=== PATIENT | male | born 1980 | race Two or more races ===

== ENCOUNTER 2021-12-23 10:24 | Outpatient (REF) | payer OTHER, SELFPAY ==
--- NOTE | ~2021-12-23 | MR_ITS ---
MRI OF THE BRAIN WITHOUT IV CONTRAST INDICATION: Migraine headache. COMPARISON: None available. TECHNIQUE: Multiplanar multisequence MR imaging of the brain was obtained without IV contrast. FINDINGS: Small left lateral retrocerebellar arachnoid cyst. There is no hydrocephalus, extra-axial surface collection, or herniation. No parenchymal signal abnormality. The major flow voids at the skull base are preserved. There is no acute infarct on diffusion-weighted imaging. There is no intracranial hemorrhage on the gradient recalled echo acquisition. The midline structures are normal. The cerebellar tonsils are normally positioned. The cerebellum and brainstem are normal. The craniocervical junction is normal. Osseous marrow signal intensity is homogenous. The visualized soft tissues are unremarkable. Large retention cysts within the maxillary sinuses bilaterally. MR/MR head/brain wo con IMPRESSION: - No acute intracranial findings. - Small left lateral retrocerebellar arachnoid cyst. - Large retention cysts within the maxillary sinuses bilaterally.
== END 2021-12-23 10:25 | disposition home or self-care (01) ==
LOC: HO.MRI 10:24
PROVIDERS: Visit Provider Psychiatry & Neurology Neurology
DX: G43.909 Migraine, unspecified, not intractable, without status migrainosus (principal)
CPT/HCPCS: 70551

== ENCOUNTER 2024-06-14 11:19 | Emergency (ER) | payer OTHER, SELFPAY ==
[2024-06-14 12:03] VITALS: BP 149/105; PULSE 72; RESP 19; TEMP 36.6; O2SAT 99; BMI 24.0
--- NOTE | 2024-06-14 12:08 | ED.GENADULT ---
HPI - General Adult General Chief complaint: General Medical Stated complaint: medication problem Time Seen by Provider: 06/14/24 12:24 Source: patient, RN notes reviewed and old records reviewed Mode of arrival: ambulatory History of Present Illness ED Provider: Allison Muñoz PA-C HPI narrative: 44-year-old male with a past medical history of migraines on Aimovig 70 mg IM, presenting to the ED requesting Aimovig injection. States follows with Neurology and has been receiving prescription for monthly injections over the past year however his neurologist recently retired. Reports his primary care refused prior authorization for him to continue medication. Reports acute on chronic migraine headache, unchanged from typical, not maximal at onset. Denies vision change or loss, nausea/vomiting, weakness Related Data Allergies Allergy/AdvReac Type Severity Reaction Status Date / Time No Known Allergies Allergy Verified 06/14/24 12:06 Review of Systems Review of Systems: Yes all other systems are reviewed and are negative Constitutional: Constitutional: Reports as per HPI Neurologic: Denies Abnormal speech present [facility] Past Medical History Attestation statement: The following information was validated with the patient. Source: old records reviewed Social History Social History Smoked in Last 30 Days: Yes Substance Use Type: Marijuana Substance Use Type Other:: prescription marijuana Advance Directives: No Do you have a plan to hurt others: No Plan Physical Exam ED Vital Signs: Vital Signs - 24 hr 06/14/24 12:03 06/14/24 14:16 06/14/24 14:18 Temperature 98 F 97.2 F 97.2 F Pulse Rate 72 70 70 Respiratory Rate 19 18 18 Blood Pressure 149/105 H 139/99 H 139/99 H Pulse Oximetry 99 100 100 Oxygen Delivery Method Room Air Room Air BMI result Body Mass Index 24.0 Const General: cooperative, healthy appearing and no acute distress Orientation/consciousness: patient oriented x3 Limitations: no limitations HENMT Head: Yes normal to inspection and Yes atraumatic Ears: hearing grossly normal bilaterally General nose exam: Normal external nose present Face and sinus: Yes normal facial exam Mouth: Normal oral and palatal mucosa present and no drooling Throat: Yes posterior oropharynx normal, Yes uvula midline, No uvula laterally displaced and No uvular edema Eyes General: appearance normal, both eyes and all related structures Pupils: Equal, round and reactive pupils present EOM: EOMs intact bilaterally Neck Neck: Yes normal visual inspection and Yes no meningeal signs Resp Effort & Inspection: normal respiratory effort and no respiratory distress Cardio Rate: regular rate GI Inspection: Yes normal to inspection Palpation (GI): Soft to palpation, nontender, no guarding and not rigid Skin Rashes: no rashes Wounds: no wounds Neuro General: patient oriented x3, gait normal, tone normal, moves all extremities, no meningeal signs, no focal motor deficits and CN's II-XI intact bilaterally Cranial nerves: Yes CN's II-XII intact bilaterally, Yes Equal, round and reactive pupils present and Yes Bilaterally intact EOM present Cognition (Neuro): normal cognition Speech: No Abnormal speech present Gait exam (Neuro): Normal gait present Motor exam (neuro): 5/5 motor strength present throughout Extrem General: Yes normal to inspection Course Course Course Narrative: RME: 44 yold male with pmh of migraines needs AIMovig 70mg IM. Patient states he received medication once every month. Patient states his neurologist retired and he is primary care provider refused to per authorize for him to receive the medication. Patient states he has 2 days overdue and has 6 days left. If he does not receive medication he will go into withdrawal. -Case discussed with hospital pharmacy, medication is not carried in this hospital -[id number]--case discussed with submarine element coordinator/Neurology and we were able to secure an appointment for tomorrow with Neurology at 15:20. If deemed appropriate after appointment to prescribed patient's medication they will do so/take care of him. Patient was informed of this appointment. Given information. Results discussed with patient including worrisome signs and symptoms and strict return precautions, and when to return to the emergency department. They verbalized understanding and feel safe for discharge at this time. Medications Administered Discontinued Medications Generic Name Dose Route Start Last Admin Trade Name Freq PRN Reason Stop Dose Admin Ketorolac Tromethamine 30 mg 06/14/24 12:44 06/14/24 13:13 Ketorolac Tromethamine 30 Mg/Ml Vial IM 06/14/24 12:45 30 mg ONCE ONE Administration Metoclopramide HCl 10 mg 06/14/24 12:44 06/14/24 13:14 Metoclopramide Hcl 10 Mg Tablet PO 06/14/24 12:45 10 mg ONCE ONE Administration Medical Decision Making Medical Decision Making MDM Narrative: 44-year-old male with a past medical history of migraines on Aimovig 70 mg IM, presenting to the ED requesting Aimovig injection. On exam hypertensive, NAD, nontoxic appearing, no focal neuro deficits. Concern for acute on chronic migraine headache. Low suspicion for meningitis, encephalitis, CVA/TIA. Plan: Pain control Please refer to course for remaining clinical decision making, interpretation of labs/imaging results, and discussions with consultants and/or family members. Differential Diagnosis Differential Diagnoses: The differential diagnosis associated with the presentation includes As above External Record Review External record reviewed: Inpatient record, Office record, Outpatient record, Prior outpatient labs, Prior outpatient radiology, Primary care record and Outside ED record Tests considered The following testing was considered but not selected: As above Prescription Management I considered prescription management with: Pain Medication Chronic Conditions Patient?s care impacted by: Other Discharge Plan Discharge Clinical Impression: Migraines Patient Disposition: Home, Self-Care Instructions: Migraine Headache (ED) Additional Instructions: YOU HAVE AN APPOINTMENT IN THE NEUROLOGY OFFICE TOMORROW AT 3:20PM IN THE AFTERNOON Please do not miss this appointment If her symptoms persist or worsen return to the ED Referrals: Beti Urias MD [Physician] - 1 day (Tomorrow at 15:20) Interventions: ED Discharge Assessment Last Done: 06/14/24 14:18 Discharge Date/Time: 06/14/24 14:18 Print Language: Lao
[2024-06-14] MEDS: Ketorolac Tromethamine 30 MG/ML VIAL IM (13:13)
[2024-06-14] MEDS: Metoclopramide HCl 10 MG TABLET PO (13:14)
[2024-06-14 14:16] VITALS: BP 139/99; PULSE 70; RESP 18; TEMP 36.2; O2SAT 100
[2024-06-14 14:18] VITALS: BP 139/99; PULSE 70; RESP 18; TEMP 36.2; O2SAT 100
== END 2024-06-14 14:18 | disposition home or self-care (01) ==
PROVIDERS: Emergency Provider Emergency Medicine; PCP Internal Medicine
DX: G43.909 Migraine, unspecified, not intractable, without status migrainosus (principal)
CPT/HCPCS: 96372; 99284; J1885

== ENCOUNTER 2025-03-04 10:44 | Emergency (ER) | payer MEDICARE, MEDICAID, SELFPAY ==
--- NOTE | ~2025-03-04 | CT_ITS ---
CLINICAL HISTORY: L flank pain, hematuria CT abdomen and pelvis without contrast Comparison: None Findings: Examination is limited by without contrast. Lung bases are clear. No pleural effusion. Liver, Pancreas, Spleen and both adrenals show normal size, shape and attenuation on present unenhanced scan. No CBD dilatation. No calcified gallstone in the gallbladder. Both kidneys reveal normal in size, shape, position and attenuation. There are stones in the bilateral renal pelvis. Mild left hydronephrosis. 3.3 x 3.8 x 5.3 mm stone of the left distal ureter series 3, image 68. The IVC, aorta and portal vein are within normal position and caliber. No evidence of retroperitoneal lymphadenopathy or ascites. Calcifications of the pelvis are likely to be phleboliths. The visible parts of the bowel loops show no obvious mass lesions or wall thickening. Colonic diverticulosis. Appendix appears normal. Urinary bladder reveals normal lumen and mayers. The pelvic organs are unremarkable. Visualized osseous structures appear unremarkable. No lytic or sclerotic bony lesion. IMPRESSION: Obstructing stone of the left distal ureter causing mild hydronephrosis. Additional nonobstructing bilateral renal calculi. This document has been electronically signed by: Queenie Goodwin MD on 03/04/2025 13:04:44
--- NOTE | 2025-03-04 10:46 | ED.GENADULT ---
HPI - General Adult General Chief complaint: Nausea/Vomiting/Diarrhea Stated complaint: L FLANK PAIN,HEMATURIA PER EMS Time Seen by Provider: 03/04/25 10:46 Source: patient, RN notes reviewed and old records reviewed Mode of arrival: ambulatory Limitations: no limitations History of Present Illness ED Provider: Shady HPI narrative: Patient is a 44-year-old male presenting to the ED with complaint of left sided flank pain, hematuria, and nausea/vomiting since 4 am. Sudden onset, woke him from sleep. Denies history of kidney stones. Appears very uncomfortable. Denies fever. MD complaint: flank pain, hematuria Onset (ago): hour(s) Related Data Previous Rx's ?Medication ?Instructions ?Recorded ondansetron 4 mg disintegrating 4 mg PO Q8H PRN nausea and 03/04/25 tablet vomiting #10 tabs oxycodone 5 mg tablet 5 mg PO Q8H PRN severe pain (scale 03/04/25 score 7-10) #6 tabs prednisone 20 mg tablet 20 mg PO DAILY #7 tabs 03/04/25 tamsulosin 0.4 mg capsule 0.4 mg PO DAILY #14 caps 03/04/25 Allergies Allergy/AdvReac Type Severity Reaction Status Date / Time No Known Allergies Allergy Verified 03/04/25 10:51 Review of Systems Review of Systems: As per HPI Yes all other systems are reviewed and are negative Constitutional: Constitutional: Reports as per HPI [facility] Social History Social History Substance Use Type: Marijuana Advance Directives: No Advance Directives Information Provided: No Physical Exam ED Vital Signs: Vital Signs - 24 hr 03/04/25 10:48 03/04/25 12:09 03/04/25 15:51 Temperature 97.8 F 97.8 F 97.8 F Pulse Rate 71 67 69 Respiratory Rate 16 18 16 Blood Pressure 148/101 H 123/85 129/87 Pulse Oximetry 100 99 96 Oxygen Delivery Method Room Air Room Air Room Air 03/04/25 15:56 Temperature 98.1 F Pulse Rate 55 Respiratory Rate 17 Blood Pressure 133/79 Pulse Oximetry 100 Oxygen Delivery Method Room Air BMI result Body Mass Index 25.6 Vital signs have been reviewed and appear to be correct. Blood pressure normal. Heart rate normal. Respiratory rate normal. Temperature normal. Oxygen saturation normal. Const General: cooperative, healthy appearing and no acute distress; No comfortable Nutritional Appearance: average body habitus Orientation/consciousness: oriented to person, oriented to place, oriented to time and patient oriented x3 Limitations: no limitations HENMT Head: Yes normocephalic and Yes atraumatic Ears: external ears normal General nose exam: Normal external nose present Face and sinus: Yes face symmetric Mouth: oropharynx normal and moist mucous membranes Throat: Yes uvula midline Eyes Pupils: Equal, round and reactive pupils present Neck Neck: Yes normal visual inspection and Yes supple Resp Effort & Inspection: normal respiratory effort and able to speak in complete sentences Auscultation: clear to auscultation bilaterally Cardio Rate: regular rate Rhythm: regular rhythm Heart sounds: S1 normal heart sound present and S2 normal heart sound present GI Palpation (GI): Soft to palpation and nontender Auscultation: normoactive bowel sounds General: Yes CVA tenderness on the left Back/Spine/Pelvis Back: CVA tenderness Skin General skin exam: elasticity normal and turgor normal Neuro General: oriented to person, oriented to place, oriented to time, patient oriented x3, moves all extremities, no focal motor deficits and CN's II-XI intact bilaterally Cranial nerves: Yes Equal, round and reactive pupils present Cognition (Neuro): normal cognition Extrem General: Yes full ROM, Yes no pedal edema and Yes no calf tenderness Psych Mental Status: mental status grossly normal Affect: normal affect Thought process: Normal thought process present Medications Administered Discontinued Medications Generic Name Dose Route Start Last Admin Trade Name Freq PRN Reason Stop Dose Admin Hydromorphone HCl 1 mg 03/04/25 12:37 03/04/25 12:44 Hydromorphone Hcl 1 Mg/Ml Syringe IVPUSH 03/04/25 12:38 1 mg ONCE ONE Administration Protocol Hydromorphone HCl 0.5 mg 03/04/25 14:13 03/04/25 14:49 Hydromorphone Hcl 0.5 Mg/0.5 Ml Syringe IVPUSH 03/04/25 14:14 0.5 mg ONCE ONE Administration Protocol Sodium Chloride 1,000 mls @ 999 mls/hr 03/04/25 15:15 03/04/25 16:34 Ns IV 03/04/25 16:15 Infused .Q1H1M HUGO Infusion Ketorolac Tromethamine 30 mg 03/04/25 16:11 03/04/25 16:29 Ketorolac Tromethamine 30 Mg/Ml Vial IVPUSH 03/04/25 16:12 30 mg ONCE ONE Administration Methylprednisolone Sodium Succinate 60 mg 03/04/25 14:13 03/04/25 14:49 Methylprednisolone Sod Succ 125 Mg/2 Ml Vial IVPUSH 03/04/25 14:14 60 mg ONCE ONE Administration Ondansetron HCl 4 mg 03/04/25 14:14 03/04/25 14:49 Ondansetron Hcl 4 Mg/2 Ml Vial IVPUSH 03/04/25 14:15 4 mg ONCE ONE Administration Tamsulosin HCl 0.4 mg 03/04/25 14:13 03/04/25 14:49 Tamsulosin Hcl 0.4 Mg Capsule PO 03/04/25 14:14 0.4 mg ONCE ONE Administration Medical Decision Making Medical Decision Making [facility] Narrative: Patient is a 44-year-old male presenting to the ED with complaint of left sided flank pain, hematuria, and nausea/vomiting since 4 am. On exam patient is awake, A+Ox3, VS WNL, afebrile, normal neurological exam without focal deficits, physical exam findings as above. Given reported symptoms and physical exam findings, initial differential includes but is not limited to UTI/pyelonephritis, renal colic, hydronephrosis, obstructing calculi. Labs notable for leukocytosis, no evidence of MARTY. CT notable for obstructing calculi distal L ureter with mild hydronephrosis. My interpretation is in agreement with the radiologist's interpretation. UA notable for 3+ blood, >20RBCs, no evidence of infection. Patient medicated with toradol with little pain relief. Patient then medicated with dilaudid with decreased in pain, but pain still moderate. Additional dilaudid ordered as well as flomax and solu-medrol, IV fluids. Patient reporting good relief of pain, feels comfortable with discharge home. Return precautions discussed at bedside with patient and . Will refer to Urology for outpatient follow-up. For tamsulosin, prednisone, Zofran and oxycodone for severe pain. Patient already on diclofenac. Patient and verbalized understanding of and agreement with plan. Differential Diagnosis Differential Diagnoses: The differential diagnosis associated with the presentation includes As per [facility] Admission/Observation Consideration of admission/observation: Escalation of care including admission/observation considered Patient would have been admitted to the hospital had their clinical presentation warranted hospital admission. Lab Data [facility] Lab Attestation statement: I reviewed the patient's lab results. As per [facility] 03/04/25 11:20 03/04/25 11:20 Labs: Lab Results 03/04/25 03/04/25 Range/Units 11:20 12:03 WBC 17.1 H (4.8-10.8) X10*3/uL RBC 4.50 L (4.60-5.80) X10*6/uL Hgb 13.8 L (14.0-18.0) g/dl Hct 41.8 L (42.0-52.0) % MCV 92.9 (80.0-98.0) fL MCH 30.7 (27.0-33.0) pg MCHC 33.0 (31.0-36.0) g/dl RDW 12.3 (11.0-16.0) % Plt Count 135 L (160-400) X10*3/uL MPV 13.0 H (9.4-12.4) fL Immature Gran % (Auto) 0.5 H (0.0-0.4) % Neut % (Auto) 84.9 H (45-73) % Lymph % (Auto) 8.3 L (20-40) % [place] % (Auto) 5.5 (2-11) % Eos % (Auto) 0.4 (0-4) % Baso % (Auto) 0.4 (0-2) % Lymph # (Auto) 1.4 (1.2-4.9) X10*3/uL [place] # (Auto) 0.9 (0.1-1.2) X10*3/uL Eos # (Auto) 0.1 (0.0-0.4) X10*3/uL Baso # (Auto) 0.1 (0.0-0.2) X10*3/uL Abs Immat Gran (auto) 0.09 H (0.00-0.03) X10*3/uL Absolute Neuts (auto) 14.5 H (2.0-8.3) x10*3/uL Absolute Nucleated RBC 0.000 (0.0-0.012) X10*3/uL Nucleated RBC % (auto) 0.0 (0.0-0.2) /100WBC Sodium 143 (135-145) mmol/L Potassium 3.7 (3.3-5.1) mmol/L Chloride 113 H (96-108) mmol/L Carbon Dioxide 22 (22-29) mmol/L Anion Gap 12 (12-20) BUN 16 (9-16) mg/dL Creatinine 1.09 (0.5-1.4) mg/dL Estim Creat Clear Calc 92.1 Estimated GFR > 60 Random Glucose 152 H (60-115) mg/dL Calcium 8.4 (8.4-10.2) mg/dL Total Bilirubin 0.2 (0.0-1.0) mg/dL AST 17 (5-37) U/L ALT 14 (0-40) U/L Alkaline Phosphatase 71 (39-117) U/L Total Protein 6.2 L (6.5-8.0) g/dL Albumin 4.1 (3.5-5.0) g/dL Urine Color Yellow Urine Appearance Turbid Urine pH 7.5 (5.0-9.0) Ur Specific [place] 1.015 (1.005-1.025) Urine Protein Negative (Neg-Trace) mg/dL Urine Glucose (UA) Negative (Negative) mg/dL Urine Ketones Negative (Negative) mg/dL Urine Blood Large (3+) H (Negative) Urine Nitrite Negative (Negative) Ur Leukocyte Esterase Negative (Negative) Urine RBC >20 H (0-2) /HPF Urine WBC 0-5 (0-5) /HPF Ur Squamous Epith Cells 0-2 (0-2) /HPF Urine Bacteria None Seen (None Seen) Hyaline Casts 0-2 (0-2) /LPF Independent Interpretation I performed an independent interpretation of an: CT Scan Interpretation: CT notable for obstructing calculi distal L ureter with mild hydronephrosis. Radiology Impression Discussion of test interpretation with radiology: I have reviewed the radiologist's reading. Radiologist Impression: CT abdomen and pelvis without contrast Comparison: None Findings: Examination is limited by without contrast. Lung bases are clear. No pleural effusion. Liver, Pancreas, Spleen and both adrenals show normal size, shape and attenuation on present unenhanced scan. No CBD dilatation. No calcified gallstone in the gallbladder. Both kidneys reveal normal in size, shape, position and attenuation. There are stones in the bilateral renal pelvis. Mild left hydronephrosis. 3.3 x 3.8 x 5.3 mm stone of the left distal ureter series 3, image 68. The IVC, aorta and portal vein are within normal position and caliber. No evidence of retroperitoneal lymphadenopathy or ascites. Calcifications of the pelvis are likely to be phleboliths. The visible parts of the bowel loops show no obvious mass lesions or wall thickening. Colonic diverticulosis. Appendix appears normal. Urinary bladder reveals normal lumen and mayers. The pelvic organs are unremarkable. Visualized osseous structures appear unremarkable. No lytic or sclerotic bony lesion. IMPRESSION: Obstructing stone of the left distal ureter causing mild hydronephrosis. Additional nonobstructing bilateral renal calculi. External Record Review External record reviewed: Inpatient record, Office record and Outpatient record Prescription Management I considered prescription management with: Pain Medication and Other Critical Care Time Critical Care Time Critical Care Time: Yes Total Critical Care Time: 39 Attestation: I have personally provided critical care time exclusive of time spent on separately billable procedures. Time includes review of lab data, radiology results, discussion with consultants, and monitoring for potential decompensation. Intervention performed as documented. Discharge Plan Discharge Clinical Impression: Left ureteral calculus Patient Disposition: Home, Self-Care Instructions: How to Strain Your Urine (ED), Ureteral Stones (ED) Additional Instructions: You were evaluated in the emergency department for flank pain. Your CT scan showed evidence of a stone in your left ureter. The stone is 5 mm which may or may not pass on its own. Your are being provided with a urine strainer to use at home, instructions are included in your discharge paperwork. You are being prescribed prednisone to decrease inflammation, tamsulosin to allow the stone to pass more easily, and oxycodone as needed for severe pain. You are being prescribed ondansetron which you can use every 8 hours as needed for nausea. You are being referred to Urology for outpatient follow up. Return to the emergency department if you develop worsening pain, persistent vomiting, fever 100.4? or greater, inability to urinate, or any other concerning symptoms. [facility] Urology will be contacting you within 2 business?days after being discharged from the Emergency?Department.? During this?phone call, they will inform you when your follow up appointment will be scheduled. If you have not received a call from [facility] after 2 business?days, please call the?office at [phone]. Prescriptions: New prednisone 20 mg tablet 20 mg PO DAILY Qty: 7 0RF tamsulosin 0.4 mg capsule 0.4 mg PO DAILY Qty: 14 0RF ondansetron 4 mg tablet,disintegrating 4 mg PO Q8H PRN (Reason: nausea and vomiting) Qty: 10 0RF oxycodone 5 mg tablet 5 mg PO Q8H PRN (Reason: severe pain (scale score 7-10)) Qty: 6 0RF Rx Instructions: Partial Fill upon patient request. Referrals: [facility] Urology Services [Provider Group, Urology] Clinical Impression: Left ureteral calculus Print Language: Korean
[2025-03-04 10:48] VITALS: BP 138/90; BP 148/101; PULSE 55; PULSE 71; RESP 16; TEMP 36.6; O2SAT 100; BMI 25.6
[2025-03-04 11:23] LABS: MANUAL DIFF FLAG NO
--- OUTSIDE RECORDS SUMMARY | 2025-03-04 11:24 | XMS_ITS | Encounter Summary ---
Author Organization [facility] Address [address] [place] [address] Care Team Providers Care [employer] Associate Name Role Phone Halie Sierra Primary Care Provider Encounter Details Date Type Department Care Team (Late st Contact Info) Description 02/28/2025 Orders Only External Imaging [address] [place] [address] Radiology, External [address] [place] [address] Social History Tobacco Use Types Packs/Day Years Used Date Smoking Tobacco: Every Day Cigarettes 0.5 15 Smokeless Tobacco: Never Alcohol Use Standard Drinks/Week Comments Not Currently 0 (1 standard drink = 0.6 oz pur e alcohol) Sex and Gender Information Value Date Recorded Sex Assigned at Male 02/27/2023 8:11 AM EDT Legal Sex Male 10:33 AM EDT Gender Identity Male 02/27/2023 8:11 AM EDT Sexual Orientation Straight 02/27/2023 8: 11 AM EDT Occupation Industry Job Start Date Job End Date not employed Not on file Not on file Not on file documented as of this encounter Plan of Treatment Pending Results Name Type Priority Associated Diagnoses Date /Time XR Transfer of Outside Films Upper Extremity Imaging Routine 03/02/2025 3:47 PM EDT Scheduled Orders Name Type Priority Associated Diagnoses Orde r Schedule XR Transfer of Outside Films Upper Extremity Imaging Routine Expected: 03/02/2025, Expires: 05/03/2026 documented as of this encounter Visit Diagnoses Not on filedocumented in this encounter Care Teams [employer] Associate Relationship Specialty Start Date End Date Halie Sierra PCP - General Internal Medicine 01/26/23 documented as of this encounter
[2025-03-04 11:29] LABS: Hematocrit 41.8 % (42.0-52.0); Hemoglobin 13.8 g/dl (14.0-18.0); Imm Gran Abs Auto 0.09 X10*3/uL (0.00-0.03); Imm Gran Pct Auto 0.5 % (0.0-0.4); Lymphocytes Absolute Auto 1.4 X10*3/uL (1.2-4.9); Mean Corpuscular HGB Conc 33.0 g/dl (31.0-36.0); Mean Corpuscular Hemoglobin 30.7 pg (27.0-33.0); Mean Corpuscular Volume 92.9 fL (80.0-98.0); NRBC Abs Auto 0.000 X10*3/uL (0.0-0.012); NRBC Pct Auto 0.0 /100WBC (0.0-0.2); Platelet Count 135 X10*3/uL (160-400); Red Blood Count 4.50 X10*6/uL (4.60-5.80); White Blood Count 17.1 X10*3/uL (4.8-10.8)
[2025-03-04 11:38] LABS: Alanine Aminotransferase 14 U/L (0-40); Albumin Level 4.1 g/dL (3.5-5.0); Alkaline Phosphatase 71 U/L (39-117); Anion Gap 12 (12-20); Aspartate Amino Transferase 17 U/L (5-37); Blood Urea Nitrogen 16 mg/dL (9-16); Calcium 8.4 mg/dL (8.4-10.2); Carbon Dioxide 22 mmol/L (22-29); Chloride 113 mmol/L (96-108); Creatinine Clr Calc Pharmacy 92.1; Estimated Glomerular Filt Rate > 60; Potassium 3.7 mmol/L (3.3-5.1); Sodium 143 mmol/L (135-145); Total Protein 6.2 g/dL (6.5-8.0)
[2025-03-04 12:09] VITALS: BP 123/85; PULSE 67; RESP 18; TEMP 36.6; O2SAT 99
[2025-03-04 13:08] LABS: Appearance Urine Turbid; Glucose Urine UA Negative (Negative); PH 7.5 (5.0-9.0); Specific Gravity - Urine 1.015 (1.005-1.025); UMIC TRIGGER UACC YES
[2025-03-04 15:51] VITALS: BP 129/87; PULSE 69; RESP 16; TEMP 36.6; O2SAT 96
[2025-03-04 15:56] VITALS: BP 133/79; PULSE 55; RESP 17; TEMP 36.7; O2SAT 100
[2025-03-04 17:52] VITALS: BP 135/93; PULSE 57; RESP 18; TEMP 36.6; O2SAT 98
[2025-03-04 17:54] VITALS: BP 133/79; PULSE 55; RESP 17; TEMP 36.7; O2SAT 100
== END 2025-03-04 17:54 | disposition home or self-care (01) ==
PROVIDERS: Registered Nurse Emergency; Emergency Provider Emergency Medicine; PCP Internal Medicine
DX: N20.1 Calculus of ureter (principal); R11.2 Nausea with vomiting, unspecified; R10.2 Pelvic and perineal pain; R31.9 Hematuria, unspecified
CPT/HCPCS: 36415; 74176; 80053; 81001; 81003; 85025; 96361; 96374; 96375; 96376; 99285; 99291; J1171; J1885; J2405; J2919

== ENCOUNTER → 2025-03-04 10:46 | Outpatient (BNV) | payer MEDICARE, MEDICAID, SELFPAY | PROVIDERS: Emergency Provider Emergency Medicine; PCP Internal Medicine; Visit Provider Nuclear Medicine | DX: N13.2 Hydronephrosis with renal and ureteral calculous obstruction (principal) | CPT/HCPCS: 74176 ==

== ENCOUNTER 2025-04-17 13:08 | Outpatient (AMB) | payer MEDICARE, MEDICAID, SELFPAY ==
--- NOTE | 2025-04-17 13:09 | A.OFFVIS_ITS ---
Intake Visit Reasons: Kidney stone/mild hydro Intake Note: New Patient is present for Kidney stones Urology Rx:Tamsulosin Blood Thinners:none Imaging completed: CT 03/04/2025 Tile And Marble Setter Required: No Accompanied by: Self / Same As Patient Allergies No Known Allergies Allergy (Verified 04/17/25 13:10) HPI Comments Details: Ivan is a pleasant male. He is a patient of Dr. Sierra. He is seen for the following urologic conditions - nephrolithiasis Appears to have successfully expelled stone No family history Discussed recurrence rate Six-month follow-up imaging Nephrolithiasis Ivan presents for - initial evaluation for nephrolithiasis, Initial presentation through emergency room February 2025 Presenting symptoms included left-sided flank pain with associated nausea Imaging - 03/09 Both kidneys reveal normal in size, shape, position and attenuation. There are stones in the bilateral renal pelvis. Mild left hydronephrosis. 3.3 x 3.8 x 5.3 mm stone of the left distal ureter series 3. Laboratory investigations - 03/09 1.1 Stone composition - unknown 24 hour urine evaluation - none on file Interventions - none Current therapeutic plan - surveillance imaging - encourage lemon fluid and 2.5 L per day water - vitamin B6 PFSH Social History Substance Use Type: Marijuana Review of Systems Const Denies chills and Denies fever(s) Card Reports no additional complaints and Denies syncope Resp Denies cough GI Denies abdominal pain and Denies heartburn Reports as per HPI and Denies change in libido Neuro Denies syncope Psych Denies change in libido Endo Denies change in libido Physical Exam Const General: cooperative, healthy appearing, comfortable and no acute distress Orientation/consciousness: patient oriented x3 HEENT Face and sinus: Yes normal facial exam Mouth: moist mucous membranes Neck Neck: Yes normal visual inspection, Yes full ROM and Yes trachea midline Chest Chest palpation & inspection: normal inspection of the chest Resp Effort & Inspection: normal respiratory effort, able to speak in complete sentences and no respiratory distress GI Inspection: Yes normal to inspection Back/Spine/Pelvis Cervical Spine: normal cervical lordosis Thoracic/Lumbar Spine: thoracic and lumbar spine normal to inspection Skin General skin exam: no rashes or lesions noted Neuro General: patient oriented x3, gait normal, tone normal and moves all extremities Extrem General: Yes normal to inspection and Yes capillary refill normal Assessment & Plan Assessment & Plan (1) Bilateral nephrolithiasis: Code(s): N20.0 - Calculus of kidney Category: Medical Plan Six-month follow-up renal ultrasound Orders: Orders US renal BI 6 Months N20.0 - Calculus of kidney Medications: New pyridoxine (vitamin B6) 50 mg PO DAILY 90 tabs 1RF 90 days N20.0 - Calculus of kidney Patient Instructions: This note is constructed using voice recognition software. While every effort has been made to ensure accuracy inside horticultural specialty grower errors may have been included. Imaging studies, laboratory and physical exam results were discussed and reviewed in detail. No major barriers to patient understanding were identified. An opportunity to ask questions regarding the treatment plan was provided. All questions were answered. The patient expressed understanding and agreement with the above treatment plan. The patient is aware they should contact our office by phone for worsening of their current condition or the appearance of new urologic symptoms. Compliance is encouraged with any medications and followup testing that is ordered. It is a privilege to participate in the urologic care of your patient. If you have any questions or concerns regarding treatment for the above conditions, or other urologic issues, please do not hesitate to contact me. The office telephone contact is [phone]. Sincerely, Dr Tod Araujo MD, [facility] - Urology Compassionate Specialist Care for the Genitourinary System Coding Level of Care Code New Pt Level 4 (72675) Diagnoses Bilateral nephrolithiasis N20.0
--- OUTSIDE RECORDS SUMMARY | 2025-04-17 14:28 | XMS_ITS | Encounter Summary ---
Author Organization [facility] Address [address] [place] [address] Care Team Providers Care Pole Inspector Name Role Phone Halie Sierra MD Primary Care Provider [phone] Madhavi Gloria MD Unavailable [phone] Encounter Details Date Type Department Care Team Description 09/27/2019 Auriculotherapist Report Medical Records [address] [place] [address] [id number] Beti Urias MD Social History Tobacco Use Types Packs/Day Years Used Date Smoking Tobacco: Some Days Smokeless Tobacco: Never Comments:Two cigarettes a da y. Alcohol Use Standard Drinks/Week Comments No 0 (1 standard drink = 0.6 oz pur e alcohol) occ Alcohol Habits Answer Date Recorded How often do you have a drink containing alcohol ? Never 08/22/2019 How many drinks containing a lcohol do you have on a typical day when you are drinking? Not asked How often do you have six or more drinks on one occasion? Not asked Physical Activity Answer Date Recorded On average, how many days pe r week do you engage in moderate to strenuous exercise (like walking fast, running, jogging, dancing, swimming, biking, or other activities that cause a light or heavy sweat)? 0 days 08/22/2019 On average, how many minutes do you engage in exercise at this level? 0 min 08/22/2019 Stress Answer Date Recorded Do you feel stress - tense, restless, nervous, or anxious, or unable to sleep at night because your mind is troubled all the time - these days? Only a little 08/22/2019 Sex Assigned at Date Recorded Male 06/23/2022 7:[address] Job Start Date Occupation Industry Not on file Not on file Not on file documented as of this encounter Plan of Treatment Not on file documented as of this encounter Visit Diagnoses Not on filedocumented in this encounter Care Teams Pole Inspector Relationship Specialty Start Date End Date Halie Sierra MD [address] [place] [phone] PCP - General Internal Medicine 06/07/19 Madhavi Gloria MD [address] [place] [address] Specialist Cardiology 03/21/24 documented as of this encounter
--- OUTSIDE RECORDS SUMMARY | 2025-04-17 14:28 | XMS_ITS | Encounter Summary ---
Author Organization [facility] Address [address] [place] [address] Care Team Providers Care Emergency Management Consultant Name Role Phone Halie Sierra MD Primary Care Provider [phone] Madhavi Gloria MD Unavailable [phone] Encounter Details Date Type Department Care Team Description 07/13/2023 SCAN [facility] [address] [facility] [address] [place] [phone] Marcelino Cedeño MD [address] [facility] [address] [place] [address] Social History Tobacco Use Types Packs/Day Years [...] file Not on file Not on file COVID-19 Exposure Response Date Recorded In the last 10 days, have yo u been in contact with someone who was confirmed or suspected to have Coronavirus/COVID-19? No / Unsure 06/30/2023 8:49 AM EST documented as of this encounter Plan of Treatment Not on file documented as of this encounter Visit Diagnoses Not on filedocumented in this encounter Care Teams Emergency Management Consultant Relationship Specialty Start Date End Date Halie Sierra MD [address] [place] [phone] PCP - General Internal Medicine 06/07/19 Madhavi Gloria MD [address] [place] [address]326 Specialist Cardiology 03/21/24 documented as of this encounter
--- OUTSIDE RECORDS SUMMARY | 2025-04-17 14:28 | XMS_ITS | Encounter Summary ---
Author Organization [facility] Address [address] [place] [address] Care Team Providers Care Supply Chain Intern Name Role Phone Halie Sierra MD Primary Care Provider [phone] Madhavi Gloria MD Unavailable [phone] Encounter Details Date Type Department Care Team Description 05/21/2023 Telephone Physiatry - [address] [phone] Halie Sierra MD [address] [place] [address] [phone] Social History Tobacco Use Types Packs/Day Years [...] on filedocumented in this encounter Care Teams Supply Chain Intern Relationship Specialty Start Date End Date Halie Sierra MD [address] [place] [address] [phone] PCP - General Internal Medicine 06/07/19 Madhavi Gloria MD [address] [place] [address] Specialist Cardiology 03/21/24 documented as of this encounter
--- OUTSIDE RECORDS SUMMARY | 2025-04-17 14:28 | XMS_ITS | Encounter Summary ---
Author Organization [facility] Address [address] [place] [address] Care Team Providers Care Peanut Separator Name Role Phone Halie Sierra MD Primary Care Provider [phone] Madhavi Gloria MD Unavailable [phone] Encounter Details Date Type Department Care Team Description 10/18/2023 Retail Advertising Sales Manager Report Medical Records [address] [place] [address] vAila Cervantes PA-C Social History Tobacco Use Types Packs/Day Years [...] on filedocumented in this encounter Care Teams Peanut Separator Relationship Specialty Start Date End Date Halie Sierra MD [address] [place] [phone] PCP - General Internal Medicine 06/07/19 Madhavi Gloria MD [address] [place] [address] 23200 Specialist Cardiology 03/21/24 documented as of this encounter
--- OUTSIDE RECORDS SUMMARY | 2025-04-17 14:28 | XMS_ITS | Encounter Summary ---
Author Organization [facility] Address [address] [place] [address] Care Team Providers Care Head Shipper Name Role Phone Halie Sierra MD Primary Care Provider [phone] Madhavi Gloria MD Unavailable [phone] Encounter Details Date Type Department Care Team Description 04/26/2023 Supply Clerk Report Medical Records [address] [place] [address] Ashvin Moy Social History Tobacco Use Types Packs/Day Years [...] on filedocumented in this encounter Care Teams Head Shipper Relationship Specialty Start Date End Date Halie Sierra MD [address] [place] [address] PCP - General Internal Medicine 06/07/19 Madhavi Gloria MD [address] [place] [address]95 Specialist Cardiology 03/21/24 documented as of this encounter
--- OUTSIDE RECORDS SUMMARY | 2025-04-17 14:28 | XMS_ITS | Clinical Summary ---
Author Organization [facility] Address [address] [place] [address] Care Team Providers Care Lead Recreation Assistant Name Role Phone Halie Sierra MD Primary Care Provider [phone] Madhavi Gloria MD Unavailable [phone] Allergies Active Allergy Reactions Severity Noted Date Comments Mushroom 12/31/2023 Medications Medication Sig Dispensed Refills Start Date End Date Status Erenumab-aooe 70 MG/ML Solution Auto-injector Inject into the skin every 30 days. 0 Active naproxen (NAPROSYN) 500 MG tablet TAKE 1 TABLET BY MOUTH TWICE A DAY WITH MEALS 180 Tablet 1 10/22/2023 Active Diclofenac Sodium 1 % Gel Apply 1 g topically 2 times daily. 100 g 1 02/09/2024 Active bisacodyl (Dulcolax) 5 MG EC tablet Take 2 tabs by mouth right before beginning bowel prep. Follow instructions given by office for timing. 2 Tablet 0 03/23/2024 Active topiramate (TOPAMAX) 100 MG tablet TAKE 1 TABLET BY MOUTH EVERY DAY 90 Tablet 1 04/05/2024 Active atorvastatin (LIPITOR) 10 MG tablet TAKE 1 TABLET BY MOUTH EVERY DAY 90 Tablet 1 04/05/2024 Active acetaminophen (TYLENOL) 500 MG tablet Take 1 Tablet by mouth every 6 hours as needed. 0 Active oxycodone-acetamin ophen (PERCOCET) 5-325 MG per tablet Take 1 Tablet by mouth every 4 hours as needed. 0 Active aspirin 325 MG tablet Take 1 Tablet by mouth daily. 0 Active Diclofenac Sodium 1 % Gel Apply 4 g topically 3 times daily. 100 g 3 05/03/2024 Active meloxicam (Mobic) 15 MG tablet Take 1 Tablet by mouth daily. 30 Tablet 0 05/03/2024 Active bisacodyl (Dulcolax) 5 MG EC tablet Take 2 tabs by mouth right before beginning bowel prep. Follow instructions given by office for timing. 2 Tablet 0 06/11/2024 Active polyethylene glycol (GoLYTELY) 236 g suspension Take 240 mL by mouth once for 1 dose. Take 4L by mouth once for one dose. May substitue any PEG. Starting at 6PM the night before your procedure drink 1 8oz glasses at your own pace until rectals run clear. 4000 mL 0 06/11/2024 Active Active Problems Problem Noted Date Atypical chest pain 03/22/2024 Other headache syndrome 02/26/2020 Overview: Proximal clinical presentation, saw neurology September 2019. Lumbar radiculopathy 02/05/2020 History of fusion of cervical spine 03/18 Mixed hyperlipidemia 10/20/2018 DM2 (diabetes mellitus, type 2) 09/11/19 Carpal tunnel syndrome Asthma PTSD (post-traumatic stress disorder) Chronic pain Overview: Left leg, s/p injury 2012, hardware placement, once follows with pain management Immunizations Name Administration Dates Next Due COVID-19 (Pfizer) 12/30/2020,12/30/2020 Influenza Vaccine-preservati ve Free-quadrivalent 4 Years 05/25/2022,05/28/2021 PREVNAR 20 03/17/2023 Family History Medical History Relation Name Comments OK Father Diabetes Mother Relation Name Status Comments Father Mother Social History Tobacco Use Types Packs/Day Years Used Date Smoking Tobacco: Every Day Cigarettes Smokeless Tobacco: Never Tobacco Cessation:Ready to Q uit: Not Asked; Counseling Given: Not Answered Comments:2-3 cigarettes a day. Alcohol Use Standard Drinks/Week Comments No 0 [...] file Not on file Not on file Last Filed Vital Signs Vital Sign Reading Time Taken Comments Blood Pressure 110/82 03/22/2024 3:21 PM EDT Pulse 78 05/24/2024 9:11 AM EDT Temperature 36.7 C (98 F) 05/24/2024 9:11 AM EDT Respiratory Rate 16 05/24/2024 9:11 AM EDT Oxygen Saturation 98% 03/22/2024 3:21 PM EDT Inhaled Oxygen Concentration - - Weight 76.2 kg (168 lb) 05/03/2024 8:48 AM EDT Height 180.3 cm (5' 11 ) 05/24/2024 9:11 AM EDT Body Mass Index 23.43 05/03/2024 8:48 AM EDT Plan of Treatment Health Maintenance Due Date Last Done Comments DIABETES: ANNUAL FOOT EXAM 08/22/202008/22 (Completed), 08/22/2019 DTAP/TDAP/TD (2 - Td or Tdap) 05/15/2023 05/15/2013 (External Completion) DEPRESSION SCREENING/FOLLOWUP 08/16/2024, 03/17/2023, 04/06/2022 (Completed), Additional history exists SOCIAL NEEDS SCREENING 08/16/2024 , 04/06/2022 (Completed), 10/29/2020 DIABETES: BLOOD SUGAR CONTRO L TEST (HGBA1C) 08/24/2024 05/24/2024, 12/31/2023, 09/20/2023, Additional history exists DIABETES: ANNUAL EYE EXAM 03/23/20252023, 2022 (External Completion of test per patient (Patient reports normal results)) Covid-19 Vaccine (2022-2 4 season) 2025 12/30/2020, 12/30/2020 INFLUENZA (#1) 2025 05/25/2022, 05/16, 04/17/2019 (External Completion of Vaccination per patient) DIABETES/HEART DISEASE: NANETTE AL CHOLESTEROL (LDL) 05/24/2025 05/24/2024, 09/20/2023, 11/19/2021, Additional history exists DIABETES: ANNUAL URINE PROTE IN TEST (MICROALBUMIN) 05/24/2025 05/24/2024, 06/15/2022, 01/14/2021, Additional history exists BASELINE HEALTH EXAM 40-64 05/24/202605/24, 05/24/2024, 05/24/2024, Additional history exists TOBACCO CHECK/ADVISE 06/13/2026 06/13/2024, 06/09/2024, 05/29/2024, Additional history exists PNEUMOCOCCAL VACCINE FOR HIG H RISK PATIENTS (#2) 2045 03/17/2023 Care Teams Lead Recreation Assistant Relationship Specialty Start Date End Date Halie Sierra MD [address] [place] [phone] PCP - General Internal Medicine 06/07/19 Madhavi Gloria MD [address] [place] [address] 23097 Specialist Cardiology 03/21/24
--- OUTSIDE RECORDS SUMMARY | 2025-04-17 14:28 | XMS_ITS | Clinical Summary ---
Author Organization [facility] Address [address] [place] [address] Care Team Providers Care Integrated Marketing Intern Name Role Phone Halie Sierra Primary Care Provider [phone] Allergies Active Allergy Reactions Criticality Noted Date Comments Atorvastatin Tachycardia 01/16/2021 Chest pains reaction Too high of a dosage Bee Pollen Rhinorrhea 01/21/2015 Medications amitriptyline (ELAVIL) 10 mg tablet SMARTSI Tablet(s) By Mouth Every Night 08/09/20 22 Active atorvastatin (LIPITOR) 10 mg tablet Take 1 tablet by mouth once a day. 02/28/20 22 Active Aimovig Autoinjector 70 mg/mL auto-injector 02/21/20 23 Active topiramate (TOPAMAX) 100 mg tablet Take 1 tablet by mouth once a day. 01/29/20 22 Active lidocaine (LIDODERM) 5% patch APPLY 1 PATCH AND LEAVE IN PLACE FOR 12 HOURS, THEN REMOVE AND LEAVE OFF FOR 12 HOURS 12/03/19 23 Active loratadine (CLARITIN) 10 mg tablet Take 10 mg by mouth. Active sharps container USE DIRECTED WITHNINJECTIONS 10/09/19 23 Active ibuprofen (MOTRIN) 600 mg tablet Take 1 tablet (600 mg total) by mouth every 8 hours as needed for pain. 90 tablet 1 03/16/20 23 Active Active Problems Problem Noted Date Diagnosed Date Asthma 03/02/2023 Carpal tunnel syndrome 03/02/2023 Chronic pain 03/02/2023 Overview (03/02/2023): Left leg, s/p injury 2012, hardware placement, once follows with pain management PTSD (post-traumatic stress disorder) 03/02/2023 Other headache syndrome 02/26/2020 Overview (03/02/2023): Proximal clinical presentation, saw neurology September 2019. Lumbar radiculopathy 02/05/2020 Mixed hyperlipidemia 10/20/2018 DM2 (diabetes mellitus, type 2) 09/11/2018 Viral syndrome 07/13/2016 Encounters Date Type Department Care Team Description 03/12/2025 Telephone [facility] [address] [place] [address] Telephone Intake, Staff PAC Patient Request Call Back_Most 03/11/2025 Orders Only External Imaging [address] [place] [address] Radiology, External 02/28/2025 Orders Only External Imaging [address] [place] [address] Radiology, External 02/23/2025 Telephone [facility] [address] [place] [address]18 Ashvin Moy MD 02/21/2025 Orders Only External Imaging [address] [place] [address] Radiology, External from Last 3 Months Family History Medical History Relation Name Comments Heart disease Father Diabetes Mother Relation Name Status Comments Father Mother Alive Social History Tobacco Use Types Packs/Day Years Used Date Smoking Tobacco: Every Day Cigarettes 0.5 15 Smokeless Tobacco: Never Tobacco Cessation:Ready to Q uit: Not Asked; Counseling Given: Not Answered Alcohol Use Standard Drinks/Week Comments Not Currently [...] Sign Reading Time Taken Comments Blood Pressure 115/82 03/02/2023 10:10 AM EDT Pulse 65 03/02/2023 10:10 AM EDT Temperature 36.6 C (97.8 F) 03/02/2023 10:10 AM EDT Respiratory Rate - - Oxygen Saturation 100% 03/02/2023 10:10 AM EDT Inhaled Oxygen Concentration - - Weight 77.6 kg (171 lb) 03/02/2023 10:10 AM EDT Height 175.3 cm (5' 9 ) 03/02/2023 10:10 AM EDT Body Mass Index 25.25 03/02/2023 10:10 AM EDT Plan of Treatment Health Maintenance Due Date Last Done Comments Cologuard 1980 HIV Screening 1980 Hemoglobin A1C 1980 Hepatitis C Screening 1980 Sigmoidoscopy 1980 Ophthalmology Exam 1990 Varicella Vaccines (1 of 2 - 13+ 2-dose series) 1993 Hepatitis B Vaccines (1 of 3 - 19+ 3-dose series) 1999 Alcohol/Substance Use Screening 08/16/2024 Depression Screening and Follow-Up 08/16/2024 Social Drivers of Health Marni ual Screening 08/16/2024 COVID-19 Vaccine (3 - 2024-2 6 season) 2025 01/20/2021, 12/30/2020 Influenza Vaccine (#1) 2025 , 05/25/2022, 05/28/2021, Additional history exists Basic Metabolic Panel 10/12/2025 10/12/2024 FOBT / Fit Test 10/12/2025 10/12/2024 Urine Microalbumin 10/12/2025 10/12/2024 Colon Cancer Screening 06/27/2034 Colonoscopy 06/27/2034 06/27/2024 DTaP,Tdap,and Td Vaccines (3 - Td or Tdap) 10/12/2034 10/12/2024, 03/06/2011 RSV Vaccine (60+ years old a nd patients) (1 - 1-dose 75+ series) 2055 Pneumococcal Vaccine: Pediat mateus (0-5 Years) and At-Risk Patients (6-50 Years) Completed 03/17/2023 Insurance [employer] [facility] Care Teams Integrated Marketing Intern Relationship Specialty Start Date End Date Halie Sierra PCP - General Internal Medicine 01/26/23
--- OUTSIDE RECORDS SUMMARY | 2025-04-17 14:28 | XMS_ITS | Encounter Summary ---
Author Organization [facility] Address [address] [place] [address] Care Team Providers Care Awning Installer Name Role Phone Halie Sierra MD Primary Care Provider Madhavi Gloria MD Unavailable [phone] Reason for Visit * Reason Onset Date Comments Call From Md Office 06/29/2023 Encounter Details Date Type Department Care Team Description 06/29/2023 Telephone Adult Medicine [address] [phone] Halie Sierra MD [address] [place] [address] [phone] Call From Md Office Social History Tobacco Use Types Packs/Day Years [...] AM EST documented as of this encounter Miscellaneous Notes * Telephone Encounter - Laura Camp - 06/29/2023 10:43 AM EST Maira from [facility] is calling stating that she faxed over PCP orders over to us back in 06/17/23 and re faxed it over again today. PCP orders need to be singed by PCP and sent faxed back [phone]. Maira can be reached at [phone] documented in this encounter Plan of Treatment Not on file documented as of this encounter Visit Diagnoses Not on filedocumented in this encounter Care Teams Awning Installer Relationship Specialty Start Date End Date Halie Sierra MD [address] [place] [address] 285[address] PCP - General Internal Medicine 06/07/19 Madhavi Gloria MD [address] [place] [address] 88668 Specialist Cardiology 03/21/24 documented as of this encounter
--- OUTSIDE RECORDS SUMMARY | 2025-04-17 14:28 | XMS_ITS | Encounter Summary ---
Author Organization [facility] Address [address] [place] [address] Care Team Providers Care Leadership Program Internship Name Role Phone Halie Sierra MD Primary Care Provider [phone] Madhavi Gloria MD Unavailable [phone] Encounter Details Date Type Department Care Team Description 10/22/2023 SCAN [facility] [address] [facility] [address] [place] [phone] Marcelino Cedeño MD [address] [facility] [address] [place] [address] Social History Tobacco Use Types Packs/Day Years [...] on filedocumented in this encounter Care Teams Leadership Program Internship Relationship Specialty Start Date End Date Halie Sierra MD [address] [place] [phone] PCP - General Internal Medicine 06/07/19 Madhavi Gloria MD [address] [place] [address]57 Specialist Cardiology 03/21/24 documented as of this encounter
--- OUTSIDE RECORDS SUMMARY | 2025-04-17 14:28 | XMS_ITS | Encounter Summary ---
Author Organization [facility] Address [address] [place] [address] Care Team Providers Care Export Sales Assistant Name Role Phone Halie Sierra MD Primary Care Provider Madhavi Gloria MD Unavailable [phone] Encounter Details Date Type Department Care Team Description 05/14/2021 Spanish Medical Interpreter Report Medical Records [address] [place] [phone] Beti Urias MD Social History Tobacco Use [...] on filedocumented in this encounter Care Teams Export Sales Assistant Relationship Specialty Start Date End Date Halie Sierra MD [address] [place] [address] [phone] PCP - General Internal Medicine 06/07/19 Madhavi Gloria MD [address] [place] [address] 82131 Specialist Cardiology 03/21/24 documented as of this encounter
--- OUTSIDE RECORDS SUMMARY | 2025-04-17 14:28 | XMS_ITS | Encounter Summary ---
Author Organization [facility] Address [address] [place] [address] Care Team Providers Care Rubber Molder Name Role Phone Halie Sierra MD Primary Care Provider Madhavi Gloria MD Unavailable [phone] Encounter Details Date Type Department Care Team Description 05/27/2023 Automatic Vulcanizing Lead Operator Report Medical Records [address] [place] [address] 69304 Erick Jacobs MD Social History Tobacco Use Types Packs/Day [...] on filedocumented in this encounter Care Teams Rubber Molder Relationship Specialty Start Date End Date Halie Sierra MD [address] [place] [address] 97040 PCP - General Internal Medicine 06/07/19 Madhavi Gloria MD [address] [place] [address] 74480 Specialist Cardiology 03/21/24 documented as of this encounter
--- OUTSIDE RECORDS SUMMARY | 2025-04-17 14:28 | XMS_ITS | Encounter Summary ---
Author Organization [facility] Address [address] [place] [address] Care Team Providers Care Esl Instructional Assistant Name Role Phone Halie Sierra MD Primary Care Provider Madhavi Gloria MD Unavailable Reason for Visit * Reason Onset Date Comments VNA Call 06/24/2021 Encounter Details Date Type Department Care Team Description 06/24/2021 Telephone Adult Medicine [address] [id number] Halie Sierra MD [address] [place] [address] [phone] VNA Call Social History Tobacco Use Types Packs/Day Years [...] Exposure Response Date Recorded In the last month, have you been in contact with someone who was confirmed or suspected to have Coronavirus / COVID-19? No / Unsure 05/27/2021 8:34 AM EDT documented as of this encounter Miscellaneous Notes * Telephone Encounter - Tamara Bolanos M.A. - 06/26/2021 11:44 AM EST No / just needed a signature / no other information was requested * Telephone Encounter - Rosey Oden M.A. - 06/26/2021 11:20 AM EST Was this information faxed over with the [facility] adult foster care pcp order form? * Telephone Encounter - Barbara Jaramillo - 06/24/2021 10:02 AM EST VNA CALL Which VNA office is calling? [facility] Full name of caller: Ani The caller is A nurse Is the caller at the patients home?: NO Reason for call: Wants last physical exam and last office visit with cinical documention that supports his health at home faxed over. Does caller need an urgent call back? NO Was CONTACT Telephone # obtained above?: YES Fax #: [phone] documented in this encounter Plan of Treatment Not on file documented as of this encounter Visit Diagnoses Not on filedocumented in this encounter Care Teams Esl Instructional Assistant Relationship Specialty Start Date End Date Halie Sierra MD [address] [place] [address] 76745 PCP - General Internal Medicine 06/07/19 Madhavi Gloria MD [address] [place] [address] 99823 Specialist Cardiology 03/21/24 documented as of this encounter
--- OUTSIDE RECORDS SUMMARY | 2025-04-17 14:28 | XMS_ITS | Encounter Summary ---
Author Organization [facility] Address [address] [place] [address] Care Team Providers Care Appraiser Auditor Name Role Phone Halie Sierra MD Primary Care Provider [phone] Madhavi Gloria MD Unavailable [phone] Encounter Details Date Type Department Care Team Description 07/13/2023 Telecommunications Network Planner Report Medical Records [address] [place] [address] Osiel Green, Social History Tobacco Use Types Packs/Day Years [...] Recorded In the last 10 days, have haydee u been in contact with someone who was confirmed or suspected to have Coronavirus/COVID-19? No / Unsure 06/30/2023 8:49 AM EST documented as of this encounter Plan of Treatment Not on file documented as of this encounter Visit Diagnoses Not on filedocumented in this encounter Care Teams Appraiser Auditor Relationship Specialty Start Date End Date Halie Sierra MD [address] [place] [address] 34092 PCP - General Internal Medicine 06/07/19 Madhavi Gloria MD [address] [place] [address] 89734 Specialist Cardiology 03/21/24 documented as of this encounter
--- OUTSIDE RECORDS SUMMARY | 2025-04-17 14:28 | XMS_ITS | Encounter Summary ---
Author Organization [facility] Address [address] [place] [address] Care Team Providers Care Assorter Name Role Phone Halie Sierra MD Primary Care Provider [phone] Madhavi Gloria MD Unavailable [phone] Encounter Details Date Type Department Care Team Description 12/17/2023 Photoengraving Etcher Report Medical Records [address] [place] [address] Avila Cervantes PA-C Social History Tobacco Use Types [...] on filedocumented in this encounter Care Teams Assorter Relationship Specialty Start Date End Date Halie Sierra MD [address] [place] [address] 74019 PCP - General Internal Medicine 06/07/19 Madhavi Gloria MD [address] [place] [address] 13749 Specialist Cardiology 03/21/24 documented as of this encounter
--- OUTSIDE RECORDS SUMMARY | 2025-04-17 14:28 | XMS_ITS | Encounter Summary ---
Author Organization [facility] Address [address] [place] [address] Care Team Providers Care Business Intelligence Engineer Name Role Phone Halie Sierra MD Primary Care Provider [phone] Madhavi Gloria MD Unavailable [phone] Reason for Visit * Reason Onset Date Comments TEST RESULTS 01/02/2022 Encounter Details Date Type Department Care Team Description 01/02/2022 Telephone Gastroenterology - [place] [address] [facility] [address] [place] [address] Star Winter MD TEST RESULTS Social History Tobacco Use Types Packs/Day Years [...] suspected to have Coronavirus/COVID-19? No / Unsure 12/11/2021 10:27 AM EDT documented as of this encounter Miscellaneous Notes * Telephone Encounter - Natacha Mercer - 01/02/2022 2:15 PM EDT Please advise * Telephone Encounter - Coby Tirado - 01/02/2022 9:19 AM EDT Pt calling in requesting a call back with MRI results Call pt at [phone] Thanks documented in this encounter Plan of Treatment Not on file documented as of this encounter Visit Diagnoses Not on filedocumented in this encounter Care Teams Business Intelligence Engineer Relationship Specialty Start Date End Date Halie Sierra MD [address] [place] [address] 43061 PCP - General Internal Medicine 06/07/19 Madhavi Gloria MD [address] [place] [address] 44377 Specialist Cardiology 03/21/24 documented as of this encounter
--- OUTSIDE RECORDS SUMMARY | 2025-04-17 14:28 | XMS_ITS | Encounter Summary ---
Author Organization [facility] [place] [facility] Address [address] [place] [address] Care Team Providers Care Steward/Stewardess Wine Name Role Phone Halie Sierra MD Primary Care Provider [phone] Madhavi Gloria MD Unavailable [phone] Encounter Details Date Type Department Care Team Description 08/14/2020 Secretary Of Police Report Medical Records [address] [place] [address] 27479 Beti Urias MD Social History Tobacco Use [...] have Coronavirus / COVID-19? No / Unsure 07/29/2020 3:14 PM EST documented as of this encounter Plan of Treatment Not on file documented as of this encounter Visit Diagnoses Not on filedocumented in this encounter Care Teams Steward/Stewardess Wine Relationship Specialty Start Date End Date Halie Sierra MD [address] [place] [address] 44162 PCP - General Internal Medicine 06/07/19 Madhavi Gloria MD [address] [place] [address] 17215 Specialist Cardiology 03/21/24 documented as of this encounter
--- OUTSIDE RECORDS SUMMARY | 2025-04-17 14:28 | XMS_ITS | Encounter Summary ---
Author Organization [facility] Address [address] [place] [address] Care Team Providers Care Clinical Abstractor Name Role Phone Halie Sierra MD Primary Care Provider [phone] Madhavi Gloria MD Unavailable [phone] Encounter Details Date Type Department Care Team Description 04/27/2023 Bad Credit Collector Report Medical Records [address] [place] [address]73 Avila Cervantes PA-C Social History Tobacco Use [...] on filedocumented in this encounter Care Teams Clinical Abstractor Relationship Specialty Start Date End Date Halie Sierra MD [address] [place] [address] 48191 PCP - General Internal Medicine 06/07/19 Madhavi Gloria MD [address] [place] [address] 24713 Specialist Cardiology 03/21/24 documented as of this encounter
--- OUTSIDE RECORDS SUMMARY | 2025-04-17 14:28 | XMS_ITS | Encounter Summary ---
Author Organization [facility] Address [address] [place] [address] Care Team Providers Care Luggage Repairer Name Role Phone Ryann Richardson MD Primary Care Provider Un available Halie Sierra MD Primary Care Provider [phone] Madhavi Gloria MD Unavailable [phone] Encounter Details Date Type Department Care Team Description 09/19/2018 Orders Only Gastroenterology - [place] [address] [facility] [address] [place] [address] Star Winter MD Social History Tobacco Use Types Packs/Day Years Used Date Smoking Tobacco: Some Days Smokeless Tobacco: Never Alcohol Use Standard Drinks/Week Comments Yes 0 (1 standard drink = 0.6 oz [...] on filedocumented in this encounter Care Teams Luggage Repairer Relationship Specialty Start Date End Date Ryann Richardson MD PCP - General Internal Medicine 05/30/1806/06 Halie Sierra MD [address] [place] [address] [phone] PCP - General Internal Medicine 06/07/19 Madhavi Gloria MD [address] [place] [address] 01020 Specialist Cardiology 03/21/24 documented as of this encounter
--- OUTSIDE RECORDS SUMMARY | 2025-04-17 14:28 | XMS_ITS | Encounter Summary ---
Author Organization [facility] Address [address] [place] [address] Care Team Providers Care Accounting Software Specialist Name Role Phone Halie Sierra MD Primary Care Provider [phone] Madhavi Gloria MD Unavailable [phone] Encounter Details Date Type Department Care Team Description 01/18/2023 [facility] Medical Records [address] [place] [address] Social History Tobacco Use Types Packs/Day Years Used Date Smoking Tobacco: Every Day Cigarettes Smokeless Tobacco: Never Comments:2-3 cigarettes a da y. Alcohol Use Standard [...] suspected to have Coronavirus/COVID-19? No / Unsure 01/12/2023 10:01 AM EDT documented as of this encounter Plan of Treatment Not on file documented as of this encounter Procedures Procedure Name Priority Date/Time Associated Diagnosis Comments OUTSIDE EKG Routine 01/18/2023 OUTSIDE PLAIN FILM Routine 01/18/2023 OUTSIDE LAB Routine 01/18/2023 documented in this encounter Results * OUTSIDE PLAIN FILM (01/18/2023) Provider Default RADIOLOGY * OUTSIDE LAB (01/18/2023) Provider Default LAB * OUTSIDE EKG (01/18/2023) Provider Default CARDIOLOGY documented in this encounter Visit Diagnoses Not on filedocumented in this encounter Care Teams Accounting Software Specialist Relationship Specialty Start Date End Date Halie Sierra MD [address] [place] [address] 34466 PCP - General Internal Medicine 06/07/19 Madhavi Gloria MD [address] [place] [address] 39691 Specialist Cardiology 03/21/24 documented as of this encounter
--- OUTSIDE RECORDS SUMMARY | 2025-04-17 14:28 | XMS_ITS | Encounter Summary ---
Author Organization [facility] Address [address] [place] [address] Care Team Providers Care Explosive Specialist Name Role Phone Ryann Richardson MD Primary Care Provider Un available Halie Sierra MD Primary Care Provider [phone] Madhavi Gloria MD Unavailable [phone] Encounter Details Date Type Department Care Team Description 09/28/2018 Release of Information Medical Records [address] [place] [address] Abstract, Provider Social History Tobacco Use Types Packs/Day Years [...] on filedocumented in this encounter Care Teams Explosive Specialist Relationship Specialty Start Date End Date Ryann Richardson MD PCP - General Internal Medicine 05/30/1806/06 Halie Sierra MD [address] [place] [address] 10541 PCP - General Internal Medicine 06/07/19 Madhavi Gloria MD [address] [place] [address] 99390 Specialist Cardiology 03/21/24 documented as of this encounter
--- OUTSIDE RECORDS SUMMARY | 2025-04-17 14:28 | XMS_ITS | Encounter Summary ---
Author Organization [facility] Address [address] [place] [address] Care Team Providers Care Shrimping Boat Captain Name Role Phone Halie Sierra MD Primary Care Provider [phone] Madhavi Gloria MD Unavailable [phone] Encounter Details Date Type Department Care Team Description 11/06/2019 [facility] Medical Records [address] [place] [address] Abstract, Provider Social History Tobacco Use Types [...] on filedocumented in this encounter Care Teams Shrimping Boat Captain Relationship Specialty Start Date End Date Halie Sierra MD [address] [place] [address] 97279 PCP - General Internal Medicine 06/07/19 Madhavi Gloria MD [address] [place] [address] 15286 Specialist Cardiology 03/21/24 documented as of this encounter
--- OUTSIDE RECORDS SUMMARY | 2025-04-17 14:28 | XMS_ITS | Encounter Summary ---
Author Organization [facility] Address [address] [place] [address] Care Team Providers Care Elementary School Registrar Name Role Phone Halie Sierra MD Primary Care Provider [phone] Madhavi Gloria MD Unavailable [phone] Encounter Details Date Type Department Care Team Description 07/01/2021 Audit Consultant Report Medical Records [address] [place] [address] Jose Manuel Henderson MD, PHD Social History Tobacco Use Types Packs/Day Years [...] on filedocumented in this encounter Care Teams Elementary School Registrar Relationship Specialty Start Date End Date Halie Sierra MD [address] [place] [address] 07984 PCP - General Internal Medicine 06/07/19 Madhavi Gloria MD [address] [place] [address] 16242 Specialist Cardiology 03/21/24 documented as of this encounter
--- OUTSIDE RECORDS SUMMARY | 2025-04-17 14:28 | XMS_ITS | Encounter Summary ---
Author Organization [facility] Address [address] [place] [address] Care Team Providers Care Acetylene Burner Name Role Phone Halie Sierra MD Primary Care Provider [phone] Madhavi Gloria MD Unavailable [phone] Reason for Visit * Reason Onset Date Comments APPOINTMENT 01/21/2023 Encounter Details Date Type Department Care Team Description 01/21/2023 Telephone Adult Medicine [address] [address] Bob Cannon, PAMarizaC [address] [place] [address]17 APPOINTMENT Social History Tobacco Use Types Packs/Day Years [...] suspected to have Coronavirus/COVID-19? No / Unsure 01/22/2023 11:02 AM EDT documented as of this encounter Miscellaneous Notes * Telephone Encounter - Maria E Mukherjee - 01/21/2023 4:37 PM EDT Attempted to contact pt, phone line rang busy unable to leave vm. * Telephone Encounter - Natacha Blum M.A. - 01/21/2023 4:12 PM EDT Pt needs [facility] ER f/u per Bob Cannon. Thanks documented in this encounter Plan of Treatment Not on file documented as of this encounter Visit Diagnoses Not on filedocumented in this encounter Care Teams Acetylene Burner Relationship Specialty Start Date End Date Halie Sierra MD [address] [place] [address] 99625 PCP - General Internal Medicine 06/07/19 Madhavi Gloria MD [address] [place] [address] 86430 Specialist Cardiology 03/21/24 documented as of this encounter
--- OUTSIDE RECORDS SUMMARY | 2025-04-17 14:29 | XMS_ITS | Encounter Summary ---
Author Organization [facility] Address [address] [place] [address] Care Team Providers Care Vocational Rehabilitation Specialist Name Role Phone Halie Sierra MD Primary Care Provider [phone] Madhavi Gloria MD Unavailable [phone] Reason for Visit * Reason Onset Date Comments Surgery (Schedule) 03/15/2024 Encounter Details Date Type Department Care Team Description 03/15/2024 Telephone [facility] Medical [facility] [address] [address] Marcelino Cedeño MD [address] [place] [address]686 Surgery (Schedule) Social History Tobacco Use Types Packs/Day Years [...] on file documented as of this encounter Miscellaneous Notes * Telephone Encounter - Amber Cameron - 03/15/2024 2:28 PM EDT Hello- Surgery was denied, I have set up a P2P for 03/22/24 @ 12:30 P2P - Case# [id number] 03/22/24 @ 12:30 Dr. Jose Sawant Thanks, Amber documented in this encounter Plan of Treatment Not on file documented as of this encounter Visit Diagnoses Not on filedocumented in this encounter Care Teams Vocational Rehabilitation Specialist Relationship Specialty Start Date End Date Halie Sierra MD [address] [place] [address] PCP - General Internal Medicine 06/07/19 Madhavi Gloria MD [address] [place] [address]996 Specialist Cardiology 03/21/24 documented as of this encounter
--- OUTSIDE RECORDS SUMMARY | 2025-04-17 14:29 | XMS_ITS | Encounter Summary ---
Author Organization [facility] Address [address] [place] [address] Care Team Providers Care Geophysical Data Technician Name Role Phone Halie Sierra MD Primary Care Provider [phone] Madhavi Gloria MD Unavailable [phone] Encounter Details Date Type Department Care Team Description 07/12/2019 Orders Only Medical Records [address] [place] [address] Matt Stewart PA-C Social History Tobacco Use Types Packs/Day [...] Name Priority Date/Time Associated Diagnosis Comments OUTSIDE MRI/MRA Routine 07/11/2019 documented in this encounter Results * OUTSIDE MRI/MRA (07/11/2019) Matt Stewart PA-C RADIOLOGY documented in this encounter Visit Diagnoses Not on filedocumented in this encounter Care Teams Geophysical Data Technician Relationship Specialty Start Date End Date Halie Sierra MD [address] [place] [address] [phone] PCP - General Internal Medicine 06/07/19 Madhavi Gloria MD [address] [place] [address] 39365 Specialist Cardiology 03/21/24 documented as of this encounter
--- OUTSIDE RECORDS SUMMARY | 2025-04-17 14:29 | XMS_ITS | Encounter Summary ---
Author Organization [facility] Address [address] [place] [address] Care Team Providers Care Butcher Assistant Name Role Phone Halie Sierra MD Primary Care Provider [phone] Madhavi Gloria MD Unavailable [phone] Encounter Details Date Type Department Care Team Description 09/11/2022 Telephone Adult Medicine [address] [phone] Halie Sierra MD [address] [place] [address] [phone] Social History Tobacco Use Types Packs/Day Years [...] suspected to have Coronavirus/COVID-19? No / Unsure 08/13/2022 3:18 PM EST documented as of this encounter Plan of Treatment Not on file documented as of this encounter Visit Diagnoses Not on filedocumented in this encounter Care Teams Butcher Assistant Relationship Specialty Start Date End Date Halie Sierra MD [address] [place] [address]20 PCP - General Internal Medicine 06/07/19 Madhavi Gloria MD [address] [place] [address] 34825 Specialist Cardiology 03/21/24 documented as of this encounter
--- OUTSIDE RECORDS SUMMARY | 2025-04-17 14:29 | XMS_ITS | Encounter Summary ---
Author Organization [facility] Address [address] [place] [address] Care Team Providers Care Remote Broadcast Technician Name Role Phone Ryann Richardson MD Primary Care Provider Un available Halie Sierra MD Primary Care Provider [phone] Madhavi Gloria MD Unavailable [phone] Encounter Details Date Type Department Care Team Description 08/02/2018 Mill Supervisor Report Medical Records [address] [place] [address] Faisal Dennis NP Social History Tobacco Use Types Packs/Day Years [...] on filedocumented in this encounter Care Teams Remote Broadcast Technician Relationship Specialty Start Date End Date Ryann Richardson MD PCP - General Internal Medicine 05/30/1806/06 Halie Sierra MD [address] [place] [address] 13391 PCP - General Internal Medicine 06/07/19 Madhavi Gloria MD [address] [place] [address] 37791 Specialist Cardiology 03/21/24 documented as of this encounter
--- OUTSIDE RECORDS SUMMARY | 2025-04-17 14:29 | XMS_ITS | Encounter Summary ---
Author Organization [facility] Address [address] [place] [address] Care Team Providers Care Pump Servicer Supervisor Name Role Phone Ryann Richardson MD Primary Care Provider Un available Halie Sierra MD Primary Care Provider [phone] Madhavi Gloria MD Unavailable [phone] Encounter Details Date Type Department Care Team Description 02/21/2019 Hospital Medical Records [address] [place] [address] Erick Don PA-C [address] [facility] [address] [place] [address] Social History Tobacco Use Types Packs/Day Years [...] on filedocumented in this encounter Care Teams Pump Servicer Supervisor Relationship Specialty Start Date End Date Ryann Richardson MD PCP - General Internal Medicine 05/30/1806/06 Halie Sierra MD [address] [place] [address]1992 PCP - General Internal Medicine 06/07/19 Madhavi Gloria MD [address] [place] [address] 42738 Specialist Cardiology 03/21/24 documented as of this encounter
--- OUTSIDE RECORDS SUMMARY | 2025-04-17 14:29 | XMS_ITS | Encounter Summary ---
Author Organization [facility] Address [address] [place] [address] Care Team Providers Care Staff Air Defense Officer Name Role Phone Halie Sierra MD Primary Care Provider [phone] Madhavi Gloria MD Unavailable [phone] Encounter Details Date Type Department Care Team Description 05/05/2024 SCAN [facility] Medical [facility] [address] [facility] [address] [place] [phone] Marcelino Cedeño MD 175 [facility] [place] [facility] [address] [place] [address] Social History Tobacco Use Types Packs/Day Years [...] on filedocumented in this encounter Care Teams Staff Air Defense Officer Relationship Specialty Start Date End Date Halie Sierra MD [address] [place] [address] 78595 PCP - General Internal Medicine 06/07/19 Madhavi Gloria MD [address] [place] [address] 17710 Specialist Cardiology 03/21/24 documented as of this encounter
--- OUTSIDE RECORDS SUMMARY | 2025-04-17 14:29 | XMS_ITS | Encounter Summary ---
Author Organization [facility] Address [address] [place] [address] Care Team Providers Care Manager Cosmetics Name Role Phone Halie Sierra MD Primary Care Provider [phone] Madhavi Gloria MD Unavailable [phone] Encounter Details Date Type Department Care Team Description 04/29/2022 Agriculture Manager Report Medical Records [address] [place] [address] Beti Urias MD Social History Tobacco Use [...] suspected to have Coronavirus/COVID-19? No / Unsure 04/06/2022 8:59 AM EDT documented as of this encounter Plan of Treatment Not on file documented as of this encounter Visit Diagnoses Not on filedocumented in this encounter Care Teams Manager Cosmetics Relationship Specialty Start Date End Date Halie Sierra MD [address] [place] [address] 84544 PCP - General Internal Medicine 06/07/19 Madhavi Gloria MD [address] [place] [address] 41892 Specialist Cardiology 03/21/24 documented as of this encounter
--- OUTSIDE RECORDS SUMMARY | 2025-04-17 14:29 | XMS_ITS | Encounter Summary ---
Author Organization [facility] Address [address] [place] [address] Care Team Providers Care Egg Buyer Name Role Phone Ryann Richardson MD Primary Care Provider Un available Halie Sierra MD Primary Care Provider [phone] Madhavi Gloria MD Unavailable [phone] Encounter Details Date Type Department Care Team Description 07/12/2018 Shaker Washer Report Medical Records [address] [place] [address] [place] [address] [place] [address] Social History Tobacco Use Types Packs/Day Years [...] on filedocumented in this encounter Care Teams Egg Buyer Relationship Specialty Start Date End Date Ryann Richardson MD PCP - General Internal Medicine 05/30/1806/06 Halie Sierra MD [address] [place] [address] PCP - General Internal Medicine 06/07/19 Madhavi Gloria MD [address] [place] [address] Specialist Cardiology 03/21/24 documented as of this encounter
--- OUTSIDE RECORDS SUMMARY | 2025-04-17 14:29 | XMS_ITS | Encounter Summary ---
Author Organization [facility] Address [address] [place] [address] Care Team Providers Care Lab Specialist Name Role Phone Halie Sierra MD Primary Care Provider [phone] Madhavi Gloria MD Unavailable [phone] Reason for Referral * EXTERNAL (Routine) - Authorized/Booked Specialty Diagnoses / Procedures Referred By Rudi ferrell Referred To Contact Neurology Procedures REFERRAL TO NEUROLOGY Halie Sierra MD [address] [place] [address] Erick Jacobs MD Referral ID Status Reason Start Date Expiration Date V isits Requested Visits Authorized [id number] Authorized/B ooked 12/09/2022 03/23/2023 1 1 Reason for Visit * Reason Onset Date Comments REFERRAL 12/08/2022 Physical Biochemist Feedback 12/08/2022 Erick Jacobs Encounter Details Date Type Department Care Team Description 12/08/2022 Telephone Adult Medicine [address] [id number] Halie Sierra MD [address] [place] [phone] REFERRAL; Physical Biochemist Feedback (Erick Jacobs) Social History Tobacco Use Types Packs/Day Years [...] suspected to have Coronavirus/COVID-19? No / Unsure 11/25/2022 8:55 AM EDT documented as of this encounter Miscellaneous Notes * Telephone Encounter - Concepción Wen - 12/08/2022 4:10 PM EDT Please review this patients new referral request. The referral has been pended. Please complete thefollowing: If approved> sign order If denied>please give instructions and route to your practice nursing pool. Practice nurse should inform referrals and the patient if denied. * Telephone Encounter - Noe Santoyo - 12/08/2022 10:58 AM EDT What insurance does the patient have today? Payor: [facility] FFS / Plan: [facility] / Product Type: MEDICAID RISK Effective 05/16/09: BS will not retro referral requests over 90 days. If request is for this please instruct patient to call the 800# on their insurance card to appeal. Do not submit a request. Referrals cannot be processed if the insurance is not accurate. If the insurance listed above in red is NO BILLING INFORMATION FOUND FOR THIS ENCOUTNER The patients correct insurance must be obtained and registered in [facility] or their referral can not be processed. Is this a retro request? NO. If yes for what date of service do you need the retro referral? N/A Who is calling to request this referral? Patient If the caller is not the patient, what is their name? N/A Ask the patient WHO referred them to this specialty: Patient saw Dr. Sierra at [facility] for the problem and was told if symptoms did not resolve or worsen they would refer them to this specialty FIRST and LAST NAME of SPECIALIST PATIENT is seeing: Dr. Erick Jacobs What specialty is this? Neurology DIAGNOSIS Patient is being seen for (Not a body part or a procedure): complicated picture, lumbar radiculopathy, PTSD, migraine Have you seen this SPECIALIST for this PROBLEM/DX before?NO If YES, when: Have you checked REVIEW or the APPT DESK to see if this referral has already been done or has visits left? YES Is this visit:Initial Visit Address of Specialist: [address] [place] [address] Phone # of Specialist: Fax #: (if applicable): Does patient have an appointment scheduled?: NO Date of appointment- (including a retro-request): Is this appointment related to: Not MVA, WC or Surgery related documented in this encounter Plan of Treatment Not on file documented as of this encounter Visit Diagnoses Not on filedocumented in this encounter Care Teams Lab Specialist Relationship Specialty Start Date End Date Halie Sierra MD [address] [place] [id number] PCP - General Internal Medicine 06/07/19 Madhavi Gloria MD [address] [place] [address] Specialist Cardiology 03/21/24 documented as of this encounter
--- OUTSIDE RECORDS SUMMARY | 2025-04-17 14:29 | XMS_ITS | Encounter Summary ---
Author Organization [facility] Address [address] [place] [address] Care Team Providers Care Chamber Worker Name Role Phone Ryann Richardson MD Primary Care Provider Un available Halie Sierra MD Primary Care Provider [phone] Madhavi Gloria MD Unavailable [phone] Reason for Referral * EXTERNAL (Routine) - Authorized/Booked Specialty Diagnoses / Procedures Referred By Contact Referred To Contact ORTHOPEDICS / Orthopedic Procedures REFERRAL TO ORTHOPEDICS (IN NETWORK) Ryann Richardson MD [address] [place], [place] [id number] [facility] [address] [place] [address] Referral ID Status Reason Start Date Expiration Date V isits Requested Visits Authorized SEE NOTE Authorized/B ooked 05/10/2019 08/09/2019 1 1 Reason for Visit * Reason Onset Date Comments Provider Call Back 05/10/2019 Encounter Details Date Type Department Care Team Description 05/10/2019 Telephone Adult [facility] [address] [place] [address] [phone] Ryann Richardson MD Provider Call Back Social History Tobacco Use Types Packs/Day Years [...] encounter Miscellaneous Notes * Telephone Encounter - Ryann Richardson MD - 05/10/2019 10:53 AM EDT I placed a new referral for shoulder pain, please inform patient. * Telephone Encounter - Briseida Appiah - 05/10/2019 10:05 AM EDT Pt calling and states he spoke with [facility] about his referral. They told him they can't help him with that diagnosis. He needs to go somewhere else. Pt states the bone density test showed massive arthritis all over. He needs to speak with someone about the correct referral. documented in this encounter Plan of Treatment Not on file documented as of this encounter Visit Diagnoses Not on filedocumented in this encounter Care Teams Chamber Worker Relationship Specialty Start Date End Date Ryann Richardson MD PCP - General Internal Medicine 05/30/1806/06 Halie Sierra MD [address] [place] [address] PCP - General Internal Medicine 06/07/19 Madhavi Gloria MD [address] [place] [address] Specialist Cardiology 03/21/24 documented as of this encounter
--- OUTSIDE RECORDS SUMMARY | 2025-04-17 14:29 | XMS_ITS | Encounter Summary ---
Author Organization [facility] Address [address] [place] [address] Care Team Providers Care Spectral Scientist Name Role Phone Halie Sierra MD Primary Care Provider [phone] Madhavi Gloria MD Unavailable [phone] Encounter Details Date Type Department Care Team Description 05/23/2024 Telephone Adult Medicine [address] [phone] Halie Sierra MD [address] [place] [address] [phone] Social History Tobacco Use Types Packs/Day Years [...] on filedocumented in this encounter Care Teams Spectral Scientist Relationship Specialty Start Date End Date Halie Sierra MD [address] [place] [address] PCP - General Internal Medicine 06/07/19 Madhavi Gloria MD [address] [place] [address] Specialist Cardiology 03/21/24 documented as of this encounter
--- OUTSIDE RECORDS SUMMARY | 2025-04-17 14:29 | XMS_ITS | Encounter Summary ---
Author Organization [facility] Address [address] [place] [address] Care Team Providers Care Seafood And Service Meat Manager Name Role Phone Halie Sierra MD Primary Care Provider [phone] Madhavi Gloria MD Unavailable [phone] Encounter Details Date Type Department Care Team Description 12/23/2022 Automatic Machines Supervisor Report Medical Records [address] [place] [phone] Erick Jacobs MD Social History Tobacco Use [...] on filedocumented in this encounter Care Teams Seafood And Service Meat Manager Relationship Specialty Start Date End Date Halie Sierra MD [address] [place] [address] PCP - General Internal Medicine 06/07/19 Madhavi Gloria MD [address] [place] [address] Specialist Cardiology 03/21/24 documented as of this encounter
--- OUTSIDE RECORDS SUMMARY | 2025-04-17 14:29 | XMS_ITS | Encounter Summary ---
Author Organization [facility] Address [address] [place] [address] Care Team Providers Care Finance Director Name Role Phone Ryann Richardson MD Primary Care Provider Un available Halie Sierra MD Primary Care Provider [phone] Madhavi Gloria MD Unavailable [phone] Encounter Details Date Type Department Care Team Description 05/22/2019 Orders Only Adult Medicine [address] [address] Jacob Sanders NP Social History Tobacco Use Types Packs/Day [...] on filedocumented in this encounter Care Teams Finance Director Relationship Specialty Start Date End Date Ryann Richardson MD PCP - General Internal Medicine 05/30/1806/06 Halie Sierra MD [address] [place] [address] PCP - General Internal Medicine 06/07/19 Madhavi Gloria MD [address] [place] [address] [phone] Specialist Cardiology 03/21/24 documented as of this encounter
--- OUTSIDE RECORDS SUMMARY | 2025-04-17 14:29 | XMS_ITS | Encounter Summary ---
Author Organization [facility] Address [address] [place] [address] Care Team Providers Care Lead Advisor Name Role Phone Halie Sierra MD Primary Care Provider [phone] Madhavi Gloria MD Unavailable [phone] Encounter Details Date Type Department Care Team Description 03/23/2024 Orders Only Medical Records [address] [place] [address] Social History Tobacco Use Types Packs/Day Years [...] Name Priority Date/Time Associated Diagnosis Comments OUTSIDE EYE EXAM Routine 03/23/2024 documented in this encounter Results * OUTSIDE EYE EXAM (03/23/2024) [facility] PROCEDURES documented in this encounter Visit Diagnoses Not on filedocumented in this encounter Care Teams Lead Advisor Relationship Specialty Start Date End Date Halie Sierra MD [address] [place] [phone] PCP - General Internal Medicine 06/07/19 Madhavi Gloria MD [address] [place] [address]78 Specialist Cardiology 03/21/24 documented as of this encounter
--- OUTSIDE RECORDS SUMMARY | 2025-04-17 14:29 | XMS_ITS | Encounter Summary ---
Author Organization [facility] Address [address] [place] [address] Care Team Providers Care Communications Systems Engineer Name Role Phone Ryann Richardson MD Primary Care Provider Un available Halie Sierra MD Primary Care Provider [phone] Madhavi Gloria MD Unavailable [phone] Encounter Details Date Type Department Care Team Description 11/22/2018 After School Teacher Report Medical Records [address] [place] [address] Yoel Berrios Social History Tobacco Use Types Packs/Day Years [...] on filedocumented in this encounter Care Teams Communications Systems Engineer Relationship Specialty Start Date End Date Ryann Richardson MD PCP - General Internal Medicine 05/30/1806/06 Halie Sierra MD [address] [place] [address] PCP - General Internal Medicine 06/07/19 Madhavi Gloria MD [address] [place] [address] Specialist Cardiology 03/21/24 documented as of this encounter
--- OUTSIDE RECORDS SUMMARY | 2025-04-17 14:29 | XMS_ITS | Encounter Summary ---
Author Organization [facility] Address [address] [place] [address] Care Team Providers Care Cushion Cover Inspector Name Role Phone Halie Sierra MD Primary Care Provider [phone] Madhavi Gloria MD Unavailable [phone] Encounter Details Date Type Department Care Team Description 04/11/2024 SCAN [facility] Medical [facility] [address] [facility] [address] [place] [phone] Marcelino Cedeño MD [address] [facility] [address] [place] [address] Social History Tobacco Use Types Packs/Day Years [...] on filedocumented in this encounter Care Teams Cushion Cover Inspector Relationship Specialty Start Date End Date Halie Sierra MD [address] [place] [address] PCP - General Internal Medicine 06/07/19 Madhavi Gloria MD [address] [place] [address] Specialist Cardiology 03/21/24 documented as of this encounter
--- OUTSIDE RECORDS SUMMARY | 2025-04-17 14:29 | XMS_ITS | Clinical Summary ---
Author Organization [facility] [place] [address] Phone Care Team Providers Care Electronic Pagination System Operator Name Role Phone Halie Sierra MD Primary Care Provider [phone] Allergies Active Allergy Reactions Criticality Noted Date Comments Coconut GI intolerance 06/21/2024 Sleep walking Mushroom 12/31/2023 Pollens Extract 09/19/2024 Medications atorvastatin (LIPITOR) 10 mg tabletIndications: Type 2 diabetes mellitus without complication, without long-term current use of insulin (CMS/HCC V24, CMS/HCC V28),Mixed hyperlipidemia Take 1 tablet (10 mg total) by mouth 1 (one) time each day. 90 tablet 1 10/12/19 25 Active rimegepant (NURTEC) 75 mg dispersible tabletIndications: Migraine with aura and without status migrainosus, not intractable Dissolve 1 tablet (75 mg total) on top of the tongue 1 (one) time each day if needed for migraine. Prescribe by Dr. Carver, Neurologist Active ergocalciferol (VITAMIN D-2) 1,250 mcg (50,000 unit) capsule Take 1 capsule (50,000 Units total) by mouth 1 (one) time per week. 4 each 10/13/19 25 026 Active erenumab-aooe (Aimovig Autoinjector) 140 mg/mL injectionIndicatio ns:Migraine with aura and without status migrainosus, not intractable Inject 1 mL (140 mg total) under the skin every 28 (twenty-eight) days. 1 mL 5 01/16/20 25 025 Active diclofenac (VOLTAREN) 50 mg EC tablet Take 1 tablet (50 mg total) by mouth 2 (two) times a day if needed (Pain). Do not crush, chew, or split. 60 tablet 1 02/29/20 25 Active topiramate (TOPAMAX) 100 mg tablet Take 1 tablet (100 mg total) by mouth 1 (one) time each day. Prescribe By Neurologist. Dr. Carver 30 each 3 03/09/20 25 Active tamsulosin (FLOMAX) 0.4 mg 24 hr capsule Take 1 capsule (0.4 mg total) by mouth 1 (one) time each day. Prescribed by Er provider for kidney stone 03/04/20 Active Active Problems Problem Noted Date Diagnosed Date Asthma 05/18/2024 Carpal tunnel syndrome 05/18/2024 Chronic pain 05/18/2024 Overview (05/18/2024): Left leg, s/p injury 2012, hardware placement, once follows with pain management PTSD (post-traumatic stress disorder) 05/18/2024 Atypical chest pain 05/18/2024 Other headache syndrome 02/26/2020 Overview (05/18/2024): Proximal clinical presentation, saw neurology September 2019. Lumbar radiculopathy 02/05/2020 Mixed hyperlipidemia 10/20/2018 Assessment & Plan (10/12/2024 5:21 PM EST): Last LDL 55. I will continue statin. Cardiovascular risk and specific lipid/LDL goals reiterated. Patient is asked to be alert for persistent nausea, abdominal pain, jaundice or pronounced persistent, diffuse muscle pain. Should such symptoms occur. He is to discontinue the drug immediately and let us know. Orders: atorvastatin (LIPITOR) 10 mg tablet; Take 1 tablet (10 mg total) by mouth 1 (one) time each day. Microalbumin creatinine urine ratio; Future Hemoglobin A1c; Future DM2 (diabetes mellitus, type 2) (CMS/HCC V24, CM S/HCC V28) 09/11/2018 Assessment & Plan (10/12/2024 5:21 PM EST): Patient is to maintain a low carb diet to optimize blood sugar levels (avoid sweet drinks/snacks, excess bread, pasta intake and replace red meat with chicken and fish and increase salad intake). Attempt exercise daily or at least 3 times a week for 30 min. Complications associated with uncontrolled diabetes includes, but are not limited to an increased risk of cardiovascular disease, retinopathy, neuropathy, renal disease, increased risk of infections with open wounds and amputations. Orders: atorvastatin (LIPITOR) 10 mg tablet; Take 1 tablet (10 mg total) by mouth 1 (one) time each day. Microalbumin creatinine urine ratio; Future Hemoglobin A1c; Future Basic metabolic panel; Future Diabetes Foot Exam Encounters Date Type Department Care Team Description 03/14/2025 9:30 AM EDT Office Visit Adult [address] [phone] Cody Leal, SHELLEY Renal calculi (Primary Dx); Hydronephrosis, unspecified hydronephrosis type; Encounter for examination following treatment at hospital 03/12/2025 Telephone Adult Medicine [address] [phone] Cody Leal NP 03/11/2025 11:13 AM EDT - 03/11/2025 11:59 PM EDT Hospital Encounter [facility] MRI [address] [place] [phone] Lesion of right humerus; Pain of right humerus; Abnormal x-ray Discharge Disposition: Home or Self Care 03/07/2025 Telephone Adult Medicine [address] [phone] Cody Leal NP 03/07/2025 Telephone Adult Medicine [address] [phone] Halie Sierra MD 03/06/2025 Telephone Adult Medicine [address] [phone] Cody Leal NP 02/28/2025 10:15 AM EDT - 02/28/2025 11:59 PM EDT Hospital Encounter [facility] [id number] [place], [place] [phone] Pain of right humerus; Chronic pain syndrome Discharge Disposition: Home or Self Care 02/28/2025 9:30 AM EDT Office Visit Adult Medicine [address] [phone] Cody Leal NP Pain of right humerus (Primary Dx); Chronic pain syndrome; Prediabetes; Vitamin D deficiency; Encounter for screening for cardiovascular disorders 02/27/2025 Telephone Adult [address] [phone] Halie Sierra MD 02/27/2025 Telephone Adult Medicine [address] [phone] Halie Sierra MD 02/21/2025 9:45 AM EDT Office Visit Orthopedic Surgery [facility] [address] [facility] [address] [place] [address] Marcelino Cedeño MD Postoperative state (Primary Dx) 01/15/2025 10:00 AM EDT Office Visit [facility] [address] [facility] [address] [place] [address] Isis Mullins, [place] Migraine with aura and without status migrainosus, not intractable (Primary Dx) from Last 3 Months Immunizations Name Administration Dates Next Due Influenza Quadravalent, MDCK , 0.5ml, preservative free (Flucelvax) 6mo and older 05/25/2022,05/28/2021 Influenza trivalent, MDCK, 0 .5mL, preservative free (Flucelvax) 6mo and older 10/12/2024 Pneumococcal conjugate 20 va lent (Prevnar 20, PCV 20) 2mo and older 03/17/2023 Tdap Tetanus diptheria acell ular pertussis (Boostrix; Adacel) 7yo and older 10/12/2024 Surgical History Surgery Date Site/Laterality Comments OTHER SURGICAL HISTORY Right PROCEDURE: HISTORICAL ARM SURGERY; COMMENT: multiple, benign tumor? LEG SURGERY Left PROCEDURE: HISTORICAL LEG SURGERY OTHER SURGICAL HISTORY PROCEDURE: ---- OTHER ----; COMMENT: cervical disectomy HAND SURGERY 2018 PROCEDURE: HISTORICAL HAND SURGERY; COMMENT: cyst removal of surgery NECK SURGERY 02/2019 PROCEDURE: HISTORICAL NECK SURGERY; COMMENT: Neck Disc Fusion ROTATOR CUFF REPAIR 03/30/2024 Right PROCEDURE: HISTORICAL ROTATOR CUFF REPAIR; COMMENT: Right shoulder rotator cuff repair, biceps tenodesis, subacromial decompression. COLOSTOMY Medical History Medical History Date Comments Chronic pain DX:Chronic pain Carpal tunnel syndrome DX:Carpal tunnel syndrome Asthma DX:Asthma PTSD (post-traumatic stress disorder) DX:PTSD (post-traumatic stress disorder) Mixed hyperlipidemia 10/20/2018 DX:Mixed hy perlipidemia History of fusion of cervical spine 04/14/2019 DX:History of fusion of cervical spine Diabetes mellitus ([facility] V 24, [facility] V28) Migraines Colon polyp Family History Medical History Relation Name Comments Heart attack Father Diabetes Mother Relation Name Status Comments Father Mother Social History Tobacco Use Types Packs/Day Years Used Date Smoking Tobacco: Some Days Cigarettes Smokeless Tobacco: Never Tobacco Cessation:Ready to Q uit: Not Asked; Counseling Given: Not Answered Alcohol Use Standard Drinks/Week Comments No 0 (1 standard drink = 0.6 oz pur e alcohol) Housing Instability Answer Date Recorde d Are you worried that in the next 2 months you may not have stable housing? Yes 10/12/2024 Food Access & Nutrition Answer Date Rec orded Do you have access to a vari ety of food including fruits and vegetables? Yes 10/12/2024 Access to Healthcare Answer Date Record ed Within the last 3 months, trev linder many times did you visit the emergency department for your medical care? 0 10/12/2024 Health Literacy Answer Date Recorded How often do you need to hav e someone help you when you read instructions, pamphlets, or other written material from your doctor or pharmacy? Never 10/12/2024 Caregiver: How often do you need to have someone help you when you read instructions, pamphlets, or other written material from your doctor or pharmacy? Not on file 10/12/2024 Financial Risk Answer Date Recorded How hard is it for you to pa y for the very basics like food, housing, medical care, and air conditioning / heating? Unable to respond 10/12/2024 Transportation Answer Date Recorded Has the lack of transportati on kept you from meetings, work, or from getting things needed for daily living? Yes Has the lack of transportati on kept you from medical appointments or from getting medications? Yes 10/12/2024 Social Isolation Answer Date Recorded How often do you feel lonely or isolated from th ose around you? Never 10/12/2024 Food Risk Answer Date Recorded Within the past 12 months we worried whether our food would run out before we got money to buy more. Never true 10/12/2024 Within the past 12 months th e food we bought just didn't last and we didn't have money to get more. Never true 10/12/2024 Dependent Care Answer Date Recorded Do you need help finding or paying for care for your loved ones. For example, child care center assistant director or elderly care for an older adult? No 10/12/2024 Education Answer Date Recorded Do you think completing more education or training, like finishing a GED, going to college, or learning a trade, would be helpful for you? Yes 10/12/2024 Employment and Income Answer Date Recor ded During the last four weeks, have you been actively looking for work? No 10/12/2024 Living Situation Answer Date Recorded What is your living situation? 0 10/12/2024 Interpersonal Safety Answer Date Record ed Physical Abuse 06/27/2024 Verbal Abuse 06/27/2024 Sex and Gender Information Value Date Recorded Sex Assigned at Male 06/25/2024 1:08 PM EST Legal Sex Male 6:14 AM EST Gender Identity Male 06/25/2024 1:08 PM EST Sexual Orientation Straight 06/25/2024 1: 08 PM EST Obstetrics History Last Filed Vital Signs Vital Sign Reading Time Taken Comments Blood Pressure 135/85 03/14/2025 9:17 AM EDT Pulse 98 03/14/2025 9:17 AM EDT Temperature 35.8 C (96.5 F) 03/14/2025 9:17 AM EDT Respiratory Rate 16 02/28/2025 9:35 AM EDT Oxygen Saturation 98% 01/15/2025 9:59 AM EDT Inhaled Oxygen Concentration - - Weight 80.3 kg (177 lb) 03/14/2025 9:17 AM EDT Height 180.3 cm (5' 11 ) 03/14/2025 9:17 AM EDT Body Mass Index 24.69 03/14/2025 9:17 AM EDT Plan of Treatment Upcoming Encounters Date Type Department Care Team (Late st Contact Info) Description 07/23/2025 10:00 AM EST Office Visit [facility] [address] [place] [phone] Mehul Kumar MD [address] [place] [phone] 07/27/2025 10:30 AM EST Office Visit Adult Medicine [facility] [address] [place] [phone] Halie Sierra MD [address] [place] [address] Health Maintenance Due Date Last Done Comments Medicare Annual Wellness Visit 07/25/2022 Diabetes: Annual Retina Eye Exam 03/23/2025 03/23/2024 Influenza Vaccine (#1) 2025 , 05/25/2022, 05/28/2021, Additional history exists Diabetes: Blood Sugar Control Test (HGBA1C) 09/14/2025 03/14/2025, 10/12/2024, 05/24/2024, Additional history exists Diabetes: Annual Urine Albumin-Creatinine Ratio (uACR) 10/12/2025 10/12/2024, 06/15/2022 Diabetes: Annual Foot Exam 10/12/2025 10/12/2024 Social Influencers of Health Screening 10/12/2025 10/12/2024 Diabetes: Annual GFR (Glomerular Filtration Rate) 03/14/2026 03/14/2025, 10/12/2024, 05/24/2024, Additional history exists Cholesterol Screening (Lipid Panel) 03/14/2030 03/14/2025, 05/24/2024, 09/20/2023 Colorectal Cancer Screening: Colonoscopy 06/27/2034 06/27/2024 DTaP,Tdap,and Td Vaccines (3 - Td or Tdap) 10/12/2034 10/12/2024, 03/06/2011 COVID-19 Vaccine Discontinued 01/20/2021, 12/30/2020 Pneumococcal Vaccine: Pediatrics (0 to 5 Years) and At-Risk Patients (6 to 49 Years) Completed 03/17/2023 Depression Screening Completed 10/12/2024 HIV Screening Completed 10/12/2024 Hepatitis C Screening Completed 10/12/2024 HIB Vaccines Aged Out No longer eligi ble based on patient's age to complete this topic HPV Vaccines Aged Out No longer eligi ble based on patient's age to complete this topic Hepatitis A Vaccines Aged Out No long er eligible based on patient's age to complete this topic Hepatitis B Vaccines Discontinued IPV Vaccines Aged Out No longer eligi ble based on patient's age to complete this topic MMR Vaccines Aged Out No longer eligi ble based on patient's age to complete this topic Meningococcal ACWY Vaccine Aged Out N o longer eligible based on patient's age to complete this topic Meningococcal B Vaccine Aged Out No l onger eligible based on patient's age to complete this topic RSV Immunization Patients Under 20 months Aged Out No longer eligible based on patient's age to complete this topic Varicella Vaccines Aged Out No longer eligible based on patient's age to complete this topic Procedures Procedure Name Priority Date/Time Associated Diagnosis Comments HAYES URINE CULTURE TUBE Routine 03/14/2025 10:11 AM EDT Renal calculi Hydronephrosis, unspecified hydronephrosis type Encounter for examination following treatment at hospital URINALYSIS WITH REFLEX MICROSCOPIC AND CULTURE Routine 03/14/2025 10:11 AM EDT Renal calculi Hydronephrosis, unspecified hydronephrosis type Encounter for examination following treatment at hospital BASIC METABOLIC PANEL Routine 03/14/2025 10:11 AM EDT Pain of right humerus Chronic pain syndrome Vitamin D deficiency Prediabetes HEMOGLOBIN A1C Routine 03/14/2025 10:11 AM EDT Pain of right humerus Chronic pain syndrome Vitamin D deficiency Prediabetes VITAMIN D 25 HYDROXY Routine 03/14/2025 10:11 AM EDT Pain of right humerus Chronic pain syndrome Vitamin D deficiency Prediabetes LIPID PANEL WITH REFLEX TO DIRECT LDL Routine 03/14/2025 10:11 AM EDT Encounter for screening for cardiovascular disorders URINALYSIS WITH REFLEX MICROSCOPIC AND CULTURE Routine 03/14/2025 10:11 AM EDT Renal calculi Hydronephrosis, unspecified hydronephrosis type Encounter for examination following treatment at hospital CULTURE URINE Routine 03/14/2025 10:11 AM EDT Renal calculi Hydronephrosis, unspecified hydronephrosis type Encounter for examination following treatment at hospital MR HUMERUS WO AND W CONTRAST RIGHT Routine 03/11/2025 1:10 PM EDT Lesion of right humerus Pain of right humerus Abnormal x-ray EXTERNAL CT REPORT 03/04/[address] REPORT 03/04/2025 XR HUMERUS 2+ VIEWS RIGHT Routine 02/28/2025 10:27 AM EDT Pain of right humerus Chronic pain syndrome XR SHOULDER 2+ VIEWS RIGHT Routine 02/21/2025 9:50 AM EDT Postoperative state HEPATITIS C ANTIBODY Routine 10/12/2024 9:36 AM EST Migraine with aura and without status migrainosus, not intractable Need for tetanus, diphtheria, and acellular pertussis (Tdap) vaccine Need for prophylactic vaccination and inoculation against influenza Need for hepatitis C screening test Type 2 diabetes mellitus without complication, without long-term current use of insulin ([facility] V24, [facility] V28) Mixed hyperlipidemia HIV 1, 2 ANTIBODY, P24 ANTIGEN WITH REFLEX TO DIFFERENTIATION Routine 10/12/2024 9:36 AM EST Migraine with aura and without status migrainosus, not intractable Need for tetanus, diphtheria, and acellular pertussis (Tdap) vaccine Need for prophylactic vaccination and inoculation against influenza Need for hepatitis C screening test Type 2 diabetes mellitus without complication, without long-term current use of insulin ([facility] V24, [facility] V28) Mixed hyperlipidemia MICROALBUMIN CREATININE URINE RATIO Routine 10/12/2024 9:36 AM EST Migraine with aura and without status migrainosus, not intractable Need for tetanus, diphtheria, and acellular pertussis (Tdap) vaccine Need for prophylactic vaccination and inoculation against influenza Need for hepatitis C screening test Type 2 diabetes mellitus without complication, without long-term current use of insulin ([facility] V24, [facility] V28) Mixed hyperlipidemia COLONOSCOPY Routine 06/27/2024 3:44 PM EST Hx of colonic polyps DIABETES EYE EXAM Routine 03/23/2024 from Last 3 Months or Most Recently Relevant to Health Maintenance Results * (ABNORMAL) Urinalysis with reflex microscopic and culture (03/14/2025 10:11 AM EDT) Specific [place] U[place] 1.014 1.003 - 1.030 LAB URINALYSIS - AUTOMATED METHOD 03/14/2025 12:13 PM [facility] pH, Urine 6.5 5.0 - 8.0 pH LAB URINALYSIS - AUTOMATED METHOD 03/14/2025 12:13 PM [facility] Leukocytes, Urine Small(A) Negative LAB URINALYSIS - AUTOMATED METHOD 03/14/2025 12:13 PM [facility] Nitrite, Urine Negative Negative LAB URINALYSIS - AUTOMATED METHOD 03/14/2025 12:13 PM [facility] Protein, Urine Trace <=Trace mg/dL LAB URINALYSIS - AUTOMATED METHOD 03/14/2025 12:13 PM [facility] Glucose, Urine Negative Negative mg/dL LAB URINALYSIS - AUTOMATED METHOD 03/14/2025 12:13 PM [facility] Ketones, Urine Trace(A) Negative mg/dL LAB URINALYSIS - AUTOMATED METHOD 03/14/2025 12:13 PM [facility] Urobilinogen, Urine 1.0 0.2 - 1.0 mg/dL LAB URINALYSIS - AUTOMATED METHOD 03/14/2025 12:13 PM [facility] Bilirubin, Urine Negative Negative LAB URINALYSIS - AUTOMATED METHOD 03/14/2025 12:13 PM [facility] Blood, Urine Negative Negative LAB URINALYSIS - AUTOMATED METHOD 03/14/2025 12:13 PM [facility] RBC, Urine 4.7(H) 0 - 4 /HPF LAB URINALYSIS - AUTOMATED METHOD 03/14/2025 12:13 PM [facility] WBC, Urine 15.8(H) 0 - 4 /HPF LAB URINALYSIS - AUTOMATED METHOD 03/14/2025 12:13 PM [facility] Squamous Epithelial, Urine 38 0 - 60 /LPF LAB URINALYSIS - AUTOMATED METHOD 03/14/2025 12:13 PM [facility] Bacteria, Urine Negative Negative /HPF LAB URINALYSIS - AUTOMATED METHOD 03/14/2025 12:13 PM [facility] Hyaline Casts, Urine 10.8(H) 0 - 3 /LPF LAB URINALYSIS - AUTOMATED METHOD 03/14/2025 12:13 PM [facility] Urine Urine specimen obtained by clean catch procedure / Unknown Non-blood Collection / Unknown 03/14/2025 10:11 AM EDT 03/14/2025 10:11 AM EDT us Cody Leal NP LAB URINE ORDERABLES Final R esult [facility] [address] [place] [address], * Hayes urine culture tube (03/14/2025 10:11 AM EDT) Extra Tube Hold for add-ons. 03/14/2025 12:01 PM EDT [facility] Comment:Auto resulted. Urine Urine specimen obtained by clean catch procedure / Unknown Non-blood Collection / Unknown 03/14/2025 10:11 AM EDT 03/14/2025 10:11 AM EDT Cody Leal MACHINE TANK OPERATOR LAB URINE ORDERABLES Final R esult [facility] [address] [place] [address], [place] [phone] * Lipid panel with reflex to direct LDL (03/14/2025 10:11 AM EDT) Cholesterol 120 0 - 200 mg/dL LAB CHEMISTRY METHOD 03/14/2025 12:54 PM EDT [facility] Triglycerides 135 0 - 150 mg/dL LAB CHEMISTRY METHOD 03/14/2025 12:54 PM EDT [facility] HDL 45 >=40 mg/dL LAB CHEMISTRY METHOD 03/14/2025 12:54 PM EDT [facility] LDL Calculated 48 0 - 100 mg/dL LAB CHEMISTRY METHOD 03/14/2025 12:54 PM EDT [facility] VLDL Cholesterol Baljit 27 mg/dL LAB CHEMISTRY METHOD 03/14/2025 12:54 PM EDT [facility] Non HDL Chol. (LDL+VLDL) 75 <145 mg/dL LAB CHEMISTRY METHOD 03/14/2025 12:54 PM EDT [facility] Chol/HDL Ratio 2.7 0.0 - 4.4 LAB CHEMISTRY METHOD 03/14/2025 12:54 PM EDT [facility] Blood Venous blood specimen / Unknown Venipuncture / Unknown 03/14/2025 10:11 AM EDT 03/14/2025 10:11 AM EDT Cody Leal MACHINE TANK OPERATOR LAB BLOOD ORDERABLES Final R esult [facility] [address] [place] [address], [place] [phone] * (ABNORMAL) Vitamin D 25 hydroxy (03/14/2025 10:11 AM EDT) [facility] Vit D, 25-Hydroxy 104.7(H) 30.0 - 80.0 ng/mL LAB CHEMISTRY METHOD 03/14/2025 1:35 PM EDT [facility] Blood Venous blood specimen / Unknown Venipuncture / Unknown 03/14/2025 10:11 AM EDT 03/14/2025 10:11 AM EDT Cody Leal MACHINE TANK OPERATOR LAB BLOOD ORDERABLES Final R esult Performing Organization Address City/[facility]/ZIP Co de Phone Number [facility] [address] [place] [address], [place] [phone] * Culture urine (03/14/2025 10:11 AM EDT) [facility] Culture, Urine No growth 03/15/2025 11:25 AM EDT [facility] Urine Urine specimen obtained by clean catch procedure / Unknown Non-blood Collection / Unknown 03/14/2025 10:11 AM EDT 03/14/2025 12:13 PM EDT Cody Leal NP LAB MICROBIOLOGY - GENERAL O RDERABLES Final Result [facility] [address] [place] [address], [place] [phone] * Hemoglobin A1c (03/14/2025 10:11 AM EDT) [facility] Hemoglobin A1C 5.9 <6.5 % LAB CHEMISTRY METHOD 03/14/2025 1:58 PM EDT [facility] Mean Bld Glu Estim. 123 mg/dL LAB CHEMISTRY METHOD 03/14/2025 1:58 PM EDT [facility] Blood Venous blood specimen / Unknown Venipuncture / Unknown 03/14/2025 10:11 AM EDT 03/14/2025 10:11 AM EDT Cody Leal NP LAB BLOOD ORDERABLES Final R esult [facility] [address] [place] [address], * (ABNORMAL) Basic metabolic panel (03/14/2025 10:11 AM EDT) Sodium 139 133 - 145 mmol/L LAB CHEMISTRY METHOD 03/14/2025 12:54 PM [facility] Potassium 3.5 3.5 - 5.5 mmol/L LAB CHEMISTRY METHOD 03/14/2025 12:54 PM [facility] Chloride 109 96 - 110 mmol/L LAB CHEMISTRY METHOD 03/14/2025 12:54 PM [facility] CO2 25 21 - 32 mmol/L LAB CHEMISTRY METHOD 03/14/2025 12:54 PM [facility] Anion Gap 5 3 - 11 LAB CHEMISTRY METHOD 03/14/2025 12:54 PM [facility] Glucose 164(H) 70 - 100 mg/dL LAB CHEMISTRY METHOD 03/14/2025 12:54 PM [facility] BUN 9 5 - 25 mg/dL LAB CHEMISTRY METHOD 03/14/2025 12:54 PM [facility] Creatinine 1.12 0.70 - 1.30 mg/dL LAB CHEMISTRY METHOD 03/14/2025 12:54 PM [facility] eGFR 83 >=60 mL/min/1. 73m2 LAB CHEMISTRY METHOD 03/14/2025 12:54 PM [facility] Comment:Calculation based on the Chronic Kidney Disease Epidemiology Collaboration (CKD-EPI) equation refit without adjustment for race. BUN/Creatinine Ratio 8.0 LAB CHEMISTRY METHOD 03/14/2025 12:54 PM EDT [facility] Calcium 9.2 8.5 - 10.5 mg/dL LAB CHEMISTRY METHOD 03/14/2025 12:54 PM EDT [facility] Blood Venous blood specimen / Unknown Venipuncture / Unknown 03/14/2025 10:11 AM EDT 03/14/2025 10:11 AM EDT us Cody Leal MACHINE TANK OPERATOR LAB BLOOD ORDERABLES Final R esult [facility] [address] [place] [address], [place] [phone] * MR Humerus wo and w Contrast Right (03/11/2025 1:10 PM EDT) Anatomical Region Laterality Modality Upper Extremities, Humerus Right Magne tic Resonance 03/12/2025 3:13 AM EDT Impressions 03/12/2025 3:23 AM EDT 10.2 x 3.0 x 2.8 cm expansile diaphyseal lesion 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 No cortical breakthrough or associated soft tissue mass. -------- FINAL REPORT -------- Dictated By: Lisbeth Xiao Dictated Date: 03/12/2025 03:13 ET Assigned Physician: Lisbeth Xiao Reviewed and Electronically Signed By: Lisbeth Xiao Signed Date: 03/12/2025 03:23 ET Workstation ID: [id number] Transcribed By: Self Edit Transcribed Date: 03/12/2025 03:13 ET Narrative 03/12/2025 3:23 AM EDT INDICATION: Abnormal Xray: Expansile mixed lesion in the proximal and mid humerus . History of fibrous dysplasia. COMPARISON: Correlation is made with right shoulder MRI dated October 2023, June 2019 TECHNIQUE: Multiplanar, multisequence MRI was performed of the right humerus without and with 17 mL Dotarem. FINDINGS: Bone: Within the mid humerus, there is an expansile diaphyseal lesion measuring approximately 10.2 x 3.0 x 2.8 cm with components that are T1 hyperintense, T2 fat sat hypointense as well as a cystlike component which is T1 hypointense and T2 hyperintense. After intravenous contrast administration, the noncystlike component does not demonstrate any significant enhancement. The cystlike component demonstrates mild peripheral enhancement. No cortical breakthrough or associated soft tissue mass. Susceptibility artifact along the inferior aspect of the osseous lesion may represent stigmata of prior intervention. A portion of this lesion can be seen dating back to June 2019. Soft Tissues: No associated soft tissue mass. No abnormal enhancement of the right arm. Procedure Note Lisbeth Xiao MD - 03/12/2025 INDICATION: Abnormal Xray: Expansile mixed lesion in the proximal and midhumerus . History of fibrous dysplasia. COMPARISON: Correlation is made with right shoulder MRI dated October 2023,June 2019 TECHNIQUE: Multiplanar, multisequence MRI was performed of the righthumerus without and with 17 mL Dotarem. FINDINGS: Bone: Within the mid humerus, there is an expansile diaphyseal lesionmeasuring approximately 10.2 x 3.0 x 2.8 cm with components that are [id number], T2 fat sat hypointense as well as a cystlike component whichis T1 hypointense and T2 hyperintense. After intravenous contrastadministration, the noncystlike component does not demonstrate anysignificant enhancement. The cystlike component demonstrates mildperipheral enhancement. No cortical breakthrough or associated softtissue mass. Susceptibility artifact along the inferior aspect of theosseous lesion may represent stigmata of prior intervention. A portion ofthis lesion can be seen dating back to June 2019. Soft Tissues: No associated soft tissue mass. No abnormal enhancement ofthe right arm. 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 Nocortical breakthrough or associated soft tissue mass. -------- FINAL REPORT -------- Dictated By: Lisbeth Xiao Dictated Date: 03/12/2025 03:13 ET Assigned Physician: Lisbeth Xiao Reviewed and Electronically Signed By: Lisbeth Xiao Signed Date: 03/12/2025 03:23 ET Workstation ID: [id number] Transcribed By: Self Edit Transcribed Date: 03/12/2025 03:13 ET Cody Leal MACHINE TANK OPERATOR IMG MRI PROCEDURES Final Res ult * External CT Report (03/04/2025) Only the most recent of2 resultswithin the time period is included. Anatomical Region Laterality Modality Computed Tomogra phy Provider [facility] IMG CT PROCEDURES Final Result * XR Humerus 2+ Views Right (02/28/2025 10:27 AM EDT) Anatomical Region Laterality Modality Upper Extremities, Humerus Right Radio graphic Imaging 02/28/2025 7:24 PM EDT Narrative 02/28/2025 7:31 PM EDT Right humerus, 2 views. History of multiple surgeries. Pain. Fibrous dysplasia. Comparison with prior examination from 01/12/2023. There is expansile mixed density lesion in the proximal and mid humeral diaphysis, extending for approximately 14.7 cm in length. There is some thinning of the overlying cortex bilaterally. There is no evidence of cortical break or periosteal reaction. There is no significant interval change since previous examination. CONCLUSIONS: Expansile mixed lesion in the proximal and mid humerus as detailed. Please correlate clinically. -------- FINAL REPORT -------- Dictated By: Jasmin Carty Dictated Date: 02/28/2025 19:24 ET Assigned Physician: Jasmin Carty Reviewed and Electronically Signed By: Jasmin Carty Signed Date: 02/28/2025 19:31 ET Workstation ID: [id number] Transcribed By: Self Edit Transcribed Date: 02/28/2025 19:24 ET Procedure Note Jasmin Carty MD - 02/28/2025 Right humerus, 2 views. History of multiple surgeries. Pain. Fibrous dysplasia. Comparison with prior examination from 01/12/2023. There is expansile mixed density lesion in the proximal and mid humeraldiaphysis, extending for approximately 14.7 cm in length. There is somethinning of the overlying cortex bilaterally. There is no evidence ofcortical break or periosteal reaction. There is no significant intervalchange since previous examination. CONCLUSIONS: Expansile mixed lesion in the proximal and mid humerus asdetailed. Please correlate clinically. -------- FINAL REPORT -------- Dictated By: Jasmin Carty Dictated Date: 02/28/2025 19:24 ET Assigned Physician: Jasmin Carty Reviewed and Electronically Signed By: Jasmin Carty Signed Date: 02/28/2025 19:31 ET Workstation ID: [id number] Transcribed By: Self Edit Transcribed Date: 02/28/2025 19:24 ET Cody eLal NP IMG XR PROCEDURES Final Resu lt * XR Shoulder 2+ Views Right (02/21/2025 9:50 AM EDT) Anatomical Region Laterality Modality Upper Extremities, Shoulder Right Comp uted Radiography Narrative 02/21/2025 10:05 AM EDT Right shoulder x-rays February 21, 2025. AP, Grashey, Y lateral, axillary views. No acute osseous abnormalities appreciated of the shoulder. No significant interval change noted in the humeral lesion. Marcelino Cedeño MD IMG XR PROCEDURES Final Result * Hepatitis C antibody (10/12/2024 9:36 AM EST) Hepatitis C Antibody Negative Negative LAB CHEMISTRY METHOD 10/12/2024 4:46 PM EST [facility] Blood Venous blood specimen / Unknown Venipuncture / Unknown 10/12/2024 9:36 AM EST 10/12/2024 9:36 AM EST Cody Leal NP LAB BLOOD ORDERABLES Final R esult [facility] [address] [place] [address], [place] [phone] * HIV 1,2 antibody, p24 antigen with reflex to differentiation (10/12/2024 9:36 AM EST) Pathologist [facility] HIV Combo AB/AG Negative Negative LAB CHEMISTRY METHOD 10/12/2024 4:47 PM EST [facility] Blood Venous blood specimen / Unknown Venipuncture / Unknown 10/12/2024 9:36 AM EST 10/12/2024 9:36 AM EST Narrative [facility] - 10/12/2024 4:47 PM EST This assay is a 4th generation assay allowing for earlier detection of HIV infection by detecting the presence of the HIV-1 p24 antigen as well as the traditional antibodies to HIV type 1 (including group O) and type 2. Use of a 4th generation assay is the current CDC recommendation for HIV screening. Cody Leal NP LAB BLOOD ORDERABLES Final R esult [facility] [address] [place] [address], [place] [phone] * Microalbumin creatinine urine ratio (10/12/2024 9:36 AM EST) [facility] Creatinine, Urine 323.0 mg/dL LAB CHEMISTRY METHOD 10/12/2024 2:32 PM EST [facility] Microalb, Ur 25.9 0.0 - 29.0 mg/L LAB CHEMISTRY METHOD 10/12/2024 2:32 PM EST [facility] Microalb/Creat Ratio 8 <30 mg/g creat LAB CHEMISTRY METHOD 10/12/2024 2:32 PM EST [facility] Urine Urine specimen obtained by clean catch procedure / Unknown Non-blood Collection / Unknown 10/12/2024 9:36 AM EST 10/12/2024 9:36 AM EST Cody Leal MACHINE TANK OPERATOR LAB URINE ORDERABLES Final R esult [facility] [address] [place] [address], * COLONOSCOPY Anesthesia - MAC; [facility] ENDOSCOPY (06/27/2024 3:44 PM EST) Anatomical Region Laterality Modality Other 06/27/2024 3:17 PM EST Narrative 06/27/2024 3:45 PM EST [facility] Patient Name: Ila Cueva Procedure Date: 06/27/2024 3:17 PM Date of : 1980 Age: 44 Gender: Male Note Status: Finalized Attending MD: Scott Frederick MD, Procedure Date No Time: 06/27/2024 Procedure: Colonoscopy Indications: Screening for colorectal malignant neoplasm Providers: Scott Frederick MD Referring MD: Scott Frederick MD Medicines: Propofol per Anesthesia Complications: No immediate complications. Estimated Blood Loss: Estimated blood loss: none. Procedure: Pre-Anesthesia Assessment: - ASA Grade Assessment: II - A patient with mild systemic disease. After I obtained informed consent, the scope was passed under direct vision. Throughout the procedure, the patient's blood pressure, pulse, and oxygen saturations were monitored continuously.The Colonoscope was introduced through the anus and advanced to the cecum, identified by appendiceal orifice and ileocecal valve. The colonoscopy was performed without difficulty. The patient tolerated the procedure well. The quality of the bowel preparation was fair. Findings: The perianal and digital rectal examinations were normal. Internal hemorrhoids were found during endoscopy. The hemorrhoids were Grade I (internal hemorrhoids that do not prolapse). Impression: - Preparation of the colon was fair. - Internal hemorrhoids. - No specimens collected. Recommendation: - Repeat colonoscopy in 10 years for screening purposes. - Use fiber, for example Citrucel, Fibercon, Konsyl or Metamucil. Procedure Code(s): --- Professional --- G0121, Colorectal cancer screening; colonoscopy on individual not meeting criteria for high risk Diagnosis Code(s): --- Professional --- Z12.11, Encounter for screening for malignant neoplasm of colon K64.0, First degree hemorrhoids CPT copyright 2020 [employer]. All rights reserved. The codes documented in this report are preliminary and upon scenery builder review may be revised to meet current compliance requirements. Scott Frederick MD Scott Frederick MD 06/27/2024 3:45:09 PM This report has been signed electronically.Scott Frederick MD Number of Addenda: 0 Note Initiated On: 06/27/2024 3:17 PM Scope In: Scope Out: Endoscopy Department at [facility] - [address] [place] [phone] Procedure Note Scott Frederick MD - 06/27/2024 [facility] GI Patient Name: Ila Cueva Procedure Date: 06/27/2024 3:17 PM Date of : 1980 Age: 44 Gender: Male Note Status: Finalized Attending MD: Scott Frederick MD, Procedure Date No Time: 06/27/2024 Procedure: Colonoscopy Indications: Screening for colorectal malignant neoplasm Providers: Scott Frederick MD Referring MD: Scott Frederick MD Medicines: Propofol per Anesthesia Complications: No immediate complications. Estimated Blood Loss: Estimated blood loss: none. Procedure: Pre-Anesthesia Assessment: - ASA Grade Assessment: II - A patient with mild systemic disease. After I obtained informed consent, the scope was passed under direct vision. Throughout theprocedure, the patient's blood pressure, pulse, and oxygen saturations were monitored continuously.The Colonoscope was introduced through the anus and advanced to the cecum, identified by appendiceal orifice and ileocecal valve. The colonoscopy was performed without difficulty. The patient tolerated the procedure well. The quality of the bowel preparation was fair. Findings: The perianal and digital rectal examinations were normal. Internal hemorrhoids were found during endoscopy.The hemorrhoids were Grade I (internal hemorrhoids thatdo not prolapse). Impression: - Preparation of the colon was fair. - Internal hemorrhoids. - No specimens collected. Recommendation: - Repeat colonoscopy in 10 years for screening purposes. - Use fiber, for example Citrucel, Fibercon, Konsylor Metamucil. Procedure Code(s): --- Professional --- G0121, Colorectal cancer screening; colonoscopy on individual not meeting criteria for high risk Diagnosis Code(s): --- Professional --- Z12.11, Encounter for screening for malignantneoplasm of colon K64.0, First degree hemorrhoids CPT copyright 2020 [employer]. All rights reserved. The codes documented in this report are preliminary and upon scenery builder reviewmay be revised to meet current compliance requirements. Scott Frederick MD Scott Frederick MD 06/27/2024 3:45:09 PM This report has been signed electronically.Scott Frederick MD Number of Addenda: 0 Note Initiated On: 06/27/2024 3:17 PM Scope In: Scope Out: Endoscopy Department at [facility] - [address] [place] [phone] Scott Frederick MD GI~PROCEDURE ORDERABLES Final Re sult * Diabetes Eye Exam (03/23/2024) Diabetes: Annual Retina Eye Exam abstracted Historical Provider HEALTH MAINTENANCE Final Result from Last 3 Months or Most Recently Relevant to Health Maintenance Insurance [employer] MEDICARE ADVANTAGE MEDICAID - [place] Care Teams Electronic Pagination System Operator Relationship Specialty Start Date End Date Halie Sierra MD [address] [place] [id number] PCP - General Internal Medicine 06/07/19
--- OUTSIDE RECORDS SUMMARY | 2025-04-17 14:29 | XMS_ITS | Encounter Summary ---
Author Organization [facility] Address [address] [place] [address] Care Team Providers Care Learn To Swim Instructor Name Role Phone Halie Sierra MD Primary Care Provider [phone] Madhavi Gloria MD Unavailable [phone] Reason for Visit * Reason Onset Date Comments Surgery (Schedule) 02/02/2024 Encounter Details Date Type Department Care Team Description 02/02/2024 Telephone [facility] [address] [phone] Marcelino Cedeño MD [address] [place] [id number] Surgery (Schedule) Social History Tobacco Use Types [...] * Telephone Encounter - Amber Cameron - 02/02/2024 2:32 PM EDT Was in the middle of trying to schedule patients surgery, and patients phone went . Attempted to call back several times to reach the patient, irineo anglin documented in this encounter Plan of Treatment Not on file documented as of this encounter Visit Diagnoses Not on filedocumented in this encounter Care Teams Learn To Swim Instructor Relationship Specialty Start Date End Date Halie Sierra MD [address] [place] [phone] PCP - General Internal Medicine 06/07/19 Madhavi Gloria MD [address] [place] [phone] Specialist Cardiology 03/21/24 documented as of this encounter
--- OUTSIDE RECORDS SUMMARY | 2025-04-17 14:29 | XMS_ITS | Encounter Summary ---
Author Organization [facility] Address [address] [place] [address] Care Team Providers Care Pre Planning Advisor Name Role Phone Ryann Richardson MD Primary Care Provider Un available Halie Sierra MD Primary Care Provider [phone] Madhavi Gloria MD Unavailable [phone] Encounter Details Date Type Department Care Team Description 04/07/2019 Orders Only Medical Records [address] [place] [address] Abstract, Provider Social History Tobacco Use Types [...] on filedocumented in this encounter Care Teams Pre Planning Advisor Relationship Specialty Start Date End Date Ryann Richardson MD PCP - General Internal Medicine 05/30/1806/06 Halie Sierra MD [address] [place] [phone] PCP - General Internal Medicine 06/07/19 Madhavi Gloria MD [address] [place] [phone] Specialist Cardiology 03/21/24 documented as of this encounter
--- OUTSIDE RECORDS SUMMARY | 2025-04-17 14:29 | XMS_ITS | Encounter Summary ---
Author Organization [facility] Address [address] [place] [address] Care Team Providers Care Broke Man Name Role Phone Ryann Richardson MD Primary Care Provider Un available Halie Sierra MD Primary Care Provider [phone] Madhavi Gloria MD Unavailable Encounter Details Date Type Department Care Team Description 02/24/2019 Hospital Medical Records [address] [place] [address] Jose Manuel Henderson MD, PHD Social History [...] on filedocumented in this encounter Care Teams Broke Man Relationship Specialty Start Date End Date Ryann Richardson MD PCP - General Internal Medicine 05/30/1806/06 Halie Sierra MD [address] [place] [id number] PCP - General Internal Medicine 06/07/19 Madhavi Gloria MD [address] [place] [phone] Specialist Cardiology 03/21/24 documented as of this encounter
--- OUTSIDE RECORDS SUMMARY | 2025-04-17 14:29 | XMS_ITS ---
Author Name [facility] Organization Unknown Care Team Organization Name Specialty Phone Email Start Date End Da christie [facility] Primary Care 06/23/2022 04/03/2024
--- OUTSIDE RECORDS SUMMARY | 2025-04-17 14:29 | XMS_ITS | Encounter Summary ---
Author Organization [facility] Address [address] [place] [address] Care Team Providers Care Safety Associate Name Role Phone Halie Sierra MD Primary Care Provider [phone] Madhavi Gloria MD Unavailable [phone] Encounter Details Date Type Department Care Team Description 07/29/2022 Clinical Research Manager Report Medical Records [address] [place] [phone] Beti Urias MD Social History Tobacco Use [...] suspected to have Coronavirus/COVID-19? No / Unsure 07/13/2022 1:58 PM EST documented as of this encounter Plan of Treatment Not on file documented as of this encounter Visit Diagnoses Not on filedocumented in this encounter Care Teams Safety Associate Relationship Specialty Start Date End Date Halie Sierra MD [address] [place] [phone] PCP - General Internal Medicine 06/07/19 Madhavi Gloria MD [address] [place] [phone] Specialist Cardiology 03/21/24 documented as of this encounter
== END 2025-04-17 13:41 | disposition home or self-care (01) ==
LOC: HO.HUSH 13:09
PROVIDERS: PCP Internal Medicine; Visit Provider Urology
DX: Z13.9 Encounter for screening, unspecified (principal); N20.0 Calculus of kidney
CPT/HCPCS: 99204

== ENCOUNTER → 2025-04-17 13:08 | Outpatient (BNVA) | payer MEDICARE, MEDICAID, SELFPAY | PROVIDERS: PCP Internal Medicine; Visit Provider Urology | DX: N20.0 Calculus of kidney (principal) | CPT/HCPCS: 81003; 99202 ==

== ENCOUNTER 2025-05-14 17:26 | Emergency (ER) | payer MEDICARE, SELFPAY ==
--- OUTSIDE RECORDS SUMMARY | 2025-05-09 09:00 | XMS_ITS | Encounter Summary ---
Author Organization [employer] Address [address] [place] [address] Care Team Providers Care Healthcare Administration Internship Name Role Phone Halie Sierra MD Primary Care Provider [phone] Reason for Referral * Consultation (Routine) - Pending Review Specialty Diagnoses / Procedures Referred By Contact Referred To Contact Physical Medicine and Rehabilitation Diagnoses Chronic low back pain without sciatica, unspecified back pain laterality Halie Sierra MD [address] [place] [address] Phone: tel: fax: [address] [address] Phone: tel: fax: Referral ID Status Reason Start Date Expiration Date Visits Requested Visits Authorized [id number] Pending Review Specialty Services Required 05/09/2025 05/09/2026 1 1 Reason for Visit * Reason Comments Back Pain Right mid side Encounter Details Date Type Department Care Team (Late st Contact Info) Description 05/09/2025 9:00 AM EDT Office Visit Adult Medicine [address] [address] Halie Sierra MD [address] [place] [address] Chronic low back pain without sciatica, unspecified back pain laterality (Primary Dx); Type 2 diabetes mellitus without complication, without long-term current use of insulin ([facility] V24, [facility] V28); Mixed hyperlipidemia Social History Tobacco Use Types Packs/Day Years [...] Record ed Within the last 3 months, ho niyah many times did you visit the emergency [...] for your loved ones. For example, child welfare social worker or elderly care for an older adult? [...] Date Recorded What is your living situation? Unrecognized valu e 10/12/2024 Interpersonal Safety Answer Date Record ed Physical Abuse Unrecognized value 06/27/2024 Verbal Abuse Unrecognized value 06/27/2024 Sex and Gender Information Value Date Recorded Sex Assigned at Male 06/25/2024 1:08 PM EST Legal Sex Male 6:14 AM EST Gender Identity Male 06/25/2024 1:08 PM EST Sexual Orientation Straight 06/25/2024 1: 08 PM EST documented as of this encounter Last Filed Vital Signs Vital Sign Reading Time Taken Comments Blood Pressure 113/83 05/09/2025 9:14 AM EDT Pulse 68 05/09/2025 9:14 AM EDT Temperature 36.2 C (97.2 F) 05/09/2025 9:14 AM EDT Respiratory Rate 14 05/09/2025 9:14 AM EDT Oxygen Saturation 98% 05/09/2025 9:14 AM EDT Inhaled Oxygen Concentration - - Weight 82.1 kg (181 lb) 05/09/2025 9:14 AM EDT Height - - Body Mass Index 25.24 03/14/2025 9:17 AM EDT documented in this encounter Progress Notes * aHlie Sierra MD - 05/09/2025 9:00 AM EDT CHIEF COMPLAINT: Back Pain (Right mid side) IDENTIFIER: Ivan Donovan is a 45 y.o. old male. HPI: Patient with past med history listed below, who did not follow to closely with me, presents complaining about ongoing back pain with occasional exacerbation that could be very severe. Patient reported back pain issues for at least 10 years if not longer, he remembered seeing different specialist when in [facility]. He remembered injection last episode in [place] at least 5 years ago. This time pain occurred without exacerbation, quite severe pain located just in the lower back without radiating. No weakness. Due to the back pain, he baseline walks with a cane. There is no incontinence, no low-grade fever. I reviewed the patient's records that is available to me I reviewed patient's imaging studies. Patient's history of diabetes, he has been following with my colleague, is compliant with medication. No chest pain, no severe headache. ROS: GENERAL: Negative for malaise, significant weight loss and fever RESPIRATORY: No cough, wheezing or shortness of breath CARDIOVASCULAR: Negative for chest pain, leg swelling and palpitations GI: Negative for abdominal discomfort, changes in bowel habits, blood in stool or black stools ENDOCRINE: Negative for cold or heat intolerance, polyuria, polydipsia and goiter NEURO: No persistent headache, fainting, seizures, strokes, TIAs, weakness, numbness or tingling PAST MEDICAL HISTORY: Patient Active Problem List Diagnosis Date Noted Asthma 05/18/2024 Carpal tunnel syndrome 05/18/2024 Chronic pain 05/18/2024 PTSD (post-traumatic stress disorder) 05/18/2024 Atypical chest pain 05/18/2024 Other headache syndrome 02/26/2020 Lumbar radiculopathy 02/05/2020 Mixed hyperlipidemia 10/20/2018 DM2 (diabetes mellitus, type 2) ([facility] V24, [facility] V28) 09/11/2018 SOCIAL HISTORY: Social History Tobacco Use Smoking status: Some Days Types: Cigarettes Smokeless tobacco: Never Substance Use Topics Alcohol use: No FAMILY HISTORY: Family Status Relation Name Status Mother (Not Specified) Father No partnership data on file Family History Problem Relation Name Age of Onset Diabetes Mother Heart attack Father ACTIVE MEDICATIONS: No outpatient medications have been marked as taking for the 05/09/25 encounter (Office Visit) with Halie Sierra MD. ALLERGIES: Coconut, Mushroom, and Pollens extract PHYSICAL EXAM: Blood pressure 113/83, pulse 68, temperature 36.2 ??C (97.2 ??F), temperature source Temporal, resp. rate 14, weight 82.1 kg (181 lb), SpO2 98%. Body mass index is 25.24 kg/m??. BMI is 18.5 to 24.9 (within the normal range) and will be followed APPEARANCE: Alert and in no acute distress, well hydrated, well groomed, though somewhat thin, weight overall stable, NECK: Neck supple, no adenopathy, thyroid symmetric and of normal size HEART: Normal S1-S2 no tachycardia LUNG: clear to auscultation bilaterally ABDOMEN: Bowel sounds normoactive, no bruits and soft, non-tender, without organomegaly or palpablemasses BACK: No focal LS-spine tenderness no muscular spasm EXTREMITIES: No edema and patient ambulates with a cane NEURO: Awake, alert and oriented x 3, reflexes symmetrical, and strength good equal bilaterally LABS: Lab Results Component Value Date HGBA1C 5.9 03/14/2025 HGBA1C 6.0 10/12/2024 HGBA1C 5.8 12/31/2023 Lab Results Component Value Date MICROALBUR 25.9 10/12/2024 LDLCALC 48 03/14/2025 CREATININE 1.12 03/14/2025 MICROALBCREA 8 10/12/2024 Lab Results Component Value Date GLUCOSE 164 (H) 03/14/2025 CALCIUM 9.2 03/14/2025 NA 139 03/14/2025 K 3.5 03/14/2025 CO2 25 03/14/2025 CL 109 03/14/2025 BUN 9 03/14/2025 CREATININE 1.12 03/14/2025 Wt Readings from Last 6 Encounters: 05/09/25 82.1 kg (181 lb) 03/14/25 80.3 kg (177 lb) 03/11/25 81.2 kg (179 lb) 02/28/25 81.2 kg (179 lb) 10/12/24 82.2 kg (181 lb 3.2 oz) 09/27/24 79.8 kg (176 lb) IMPRESSION: 1. Chronic low back pain without sciatica, unspecified back pain laterality 2. Type 2 diabetes mellitus without complication, without long-term current use of insulin ([facility], [facility] V28) 3. Mixed hyperlipidemia PLAN: Patient with past med history listed below, who did not follow to closely with me, presents complaining about ongoing back pain with occasional exacerbation that could be very severe. Patient reported back pain issues for at least 10 years if not longer, he remembered seeing different specialist when in [facility]. He remembered injection last episode in [place] at least 5 years ago. This time pain occurred without exacerbation, quite severe pain located just in the lower back without radiating. No weakness. Due to the back pain, he baseline walks with a cane. There is no incontinence, no low-grade fever. I reviewed the patient's records that is available to me I reviewed patient's imaging studies. Patient's history of diabetes, he has been following with my colleague, is compliant with medication. No chest pain, no severe headache. 1 back pain, history of such had a previous extensive evaluation had back injection with good results. I will order back x-ray to be thorough. I will refer patient to physiatry. Warning symptoms discussed that would need immediate reevaluation, including ER visit. 2 see me for quite some time, I reviewed patient's recent visits, nuclear stress test report last year. A diabetes overall well-controlled, we discussed diabetic routine care, we specifically discussed immunization but we decided against that trying not to complicate the picture with recent pain exacerbation. Over the next few visits will update a diabetic routine care. B we will continue statin and repeat lipid profile LFT. 3 I reviewed record and discussed with patient regarding his complex history. Headache is much better controlled, it appears that patient's Topamax was . Patient mood is stable. Patient has history of kidney stone, I will further clarify regarding patient use of Flomax for kidney stone versus BPH, patient asymptomatic, as far as BPH symptoms are concerned, at young age of 45. I urged the patient to follow with me/my team, to further address routine care. Orders Placed This Encounter Procedures XR Lumbar Spine 2-3 Views Standing Status: Future Number of Occurrences: 1 Standing Expiration Date: 05/09/2026 Order Specific Question: In what REGION should this be scheduled? Answer: [facility] [[id number]] Order Specific Question: In what [place] LOCATION should this be scheduled? Answer: [place] [id number] [facility] [[id number]] Ambulatory referral to Physical Medicine Rehab Please send referral to: Osiel Green Standing Status: Future Standing Expiration Date: 05/09/2026 Referral Priority: Routine Referral Type: Consultation Referral Reason: Specialty Services Required Referral Location: [facility] Requested Specialty: Physical Medicine and Rehabilitation Number of Visits Requested: 1 ADDITIONAL ORDERS: AMB REFERRAL TO PHYSICAL MEDICINE REHAB Halie Sierra MD on 05/09/2025 at 9:41 AM EDT documented in this encounter Plan of Treatment Upcoming Encounters Date Type Department Care Team (Late st Contact Info) Description 07/23/2025 10:00 AM EST Office Visit [facility] [address] [facility] [address] [place] [address] Mehul Kumar MD [address] [place] [address] 07/27/2025 10:30 AM EST Office Visit Adult Medicine [facility] [address] [place] [address] Halie Sierra MD [address] [place] [phone] Scheduled Referrals Name Type Priority Associated Diagnoses Order Schedule Ambulatory referral to Physical Medicine Rehab Outpatient Referral Routine Chronic low back pain without sciatica, unspecified back pain laterality 1 Occurrences starting 05/09/2025 until 05/09/2026 documented as of this encounter Visit Diagnoses Diagnosis Chronic low back pain without sciatica, unspecified back pain laterality- Primary Type 2 diabetes mellitus without complication, without long-term current use of insulin ([facility] V24, [facility] V28) Mixed hyperlipidemia documented in this encounter Additional Health Concerns Assessment Noted Time PHQ-9 Depression Total Score: 0 10/12/19 25 8:31 AM EST documented as of this encounter Care Teams Healthcare Administration Internship Relationship Specialty Start Date End Date Halie Sierra MD [address] [place] [phone] PCP - General Internal Medicine 06/07/19 documented as of this encounter
--- OUTSIDE RECORDS SUMMARY | 2025-05-09 09:35 | XMS_ITS | Encounter Summary ---
Author Organization [facility] Address [address] [place] [address] Care Team Providers Care Search Engine Optimization Analyst Name Role Phone Halie Sierra MD Primary Care Provider [phone] Encounter Details Date Type Department Care Team (Latest Contact Info) Description 05/09/2025 9:35 AM EDT - 05/09/2025 11:59 PM EDT Hospital Encounter XRAY - [facility] [address] [place] [address] Chronic low back pain without sciatica, unspecified back pain laterality Discharge Disposition: Home or Self Care Social History Tobacco Use Types Packs/Day Years Used Date Smoking Tobacco: Some Days Cigarettes Smokeless Tobacco: Never Alcohol Use Standard Drinks/Week Comments No 0 [...] ed Within the last 3 months, ho w many times did you visit the emergency [...] care for your loved ones. For example, exceptional children's teacher or elderly care for an older adult? [...] PM EST documented as of this encounter Medications at Time of Discharge atorvastatin (LIPITOR) 10 mg tabletIndications:T ype 2 diabetes mellitus without complication, without long-term current use of insulin ([facility] V24, [facility] V28),Mixed hyperlipidemia Take 1 tablet (10 mg total) by mouth 1 (one) time each day. 90 tablet 1 10/12/2024 diclofenac (VOLTAREN) 50 mg EC tablet TAKE 1 TABLET (50 MG TOTAL) BY MOUTH TWICE A DAY NEEDED FOR PAIN DO NOT CRUSH, CHEW, OR SPLIT 180 tablet 1 04/26/2025 erenumab-aooe (Aimovig Autoinjector) 140 mg/mL injectionIndication s:Migraine with aura and without status migrainosus, not intractable Inject 1 mL (140 mg total) under the skin every 28 (twenty-eight) days. 1 mL 5 01/15/2025 07/02/20 25 ergocalciferol (VITAMIN D-2) 1,250 mcg (50,000 unit) capsule Take 1 capsule (50,000 Units total) by mouth 1 (one) time per week. 4 each 10/13/2024 10/13/19 26 rimegepant (NURTEC) 75 mg dispersible tabletIndications:M igraine with aura and without status migrainosus, not intractable Dissolve 1 tablet (75 mg total) on top of the tongue 1 (one) time each day if needed for migraine. Prescribe by Dr. Carver, Neurologist tamsulosin (FLOMAX) 0.4 mg 24 hr capsule Take 1 capsule (0.4 mg total) by mouth 1 (one) time each day. Prescribed by Er provider for kidney stone 03/04/2025 documented as of this encounter Discharge Disposition Disposition Code Departure Means Destination Home or Self Care documented in this encounter Plan of Treatment Upcoming Encounters Date Type Department Care Team (Late st Contact Info) Description 07/23/2025 10:00 AM EST Office Visit [facility] [address] [facility] [address] [place] [address] Mehul Kumar MD [address] [place] [address] 07/27/2025 10:30 AM EST Office Visit Adult Medicine [address] [address] Halie Sierra MD [address] [place] [phone] documented as of this encounter Procedures Procedure Name Priority Date/Time Associated Diagnosis Comments XR LUMBAR SPINE 4+ VIEWS Routine 05/09/2025 10:03 AM EDT Chronic low back pain without sciatica, unspecified back pain laterality documented in this encounter Results * XR Lumbar Spine 4+ Views (05/09/2025 10:03 AM EDT) Anatomical Region Laterality Modality Spine, L-spine Radiographic Michelle ging 05/10/2025 9:43 AM EDT Narrative 05/10/2025 9:44 AM EDT Lumbosacral spine, 4 views. HISTORY: Pain. Comparison with prior plain films latest from 03/30/2022. There is narrowing of the disc spaces at L4-5 and L5-S1 level. There are mild hypertrophic degenerative changes in the facet joints at L4-5 and L5-S1 levels. There is no fractures, dislocations or destructive lesions. When compared with previous examination there is interval progression of the degenerative changes at L4-5 level. CONCLUSIONS: Degenerative changes as detailed. -------- FINAL REPORT -------- Dictated By: Jasmin Carty Dictated Date: 05/10/2025 09:43 ET Assigned Physician: Jasmin Carty Reviewed and Electronically Signed By: Jasmin Carty Signed Date: 05/10/2025 09:44 ET Workstation ID: [id number] Transcribed By: Self Edit Transcribed Date: 05/10/2025 09:43 ET Procedure Note Jasmin Carty MD - 05/10/2025 Lumbosacral spine, 4 views. HISTORY: Pain. Comparison with prior plain films latest from 03/30/2022. There is narrowing of the disc spaces at L4-5 and L5-S1 level. There aremild hypertrophic degenerative changes in the facet joints at L4-5 andL5-S1 levels. There is no fractures, dislocations or destructive lesions.When compared with previous examination there is interval progression ofthe degenerative changes at L4-5 level. CONCLUSIONS: Degenerative changes as detailed. -------- FINAL REPORT -------- Dictated By: Jasmin Carty Dictated Date: 05/10/2025 09:43 ET Assigned Physician: Jasmin Carty Reviewed and Electronically Signed By: Jasmin Carty Signed Date: 05/10/2025 09:44 ET Workstation ID: [id number] Transcribed By: Self Edit Transcribed Date: 05/10/2025 09:43 ET Halie Sierra MD IMG XR PROCEDURES Final Result documented in this encounter Visit Diagnoses Diagnosis Chronic low back pain without sciatica, unspecified back pain laterality documented in this encounter Additional Health Concerns Assessment Noted Time PHQ-9 Depression Total Score: 0 10/12/19 25 8:31 AM EST documented as of this encounter Care Teams Search Engine Optimization Analyst Relationship Specialty Start Date End Date Halie Sierra MD [address] [place] [address] PCP - General Internal Medicine 06/07/19 documented as of this encounter
--- NOTE | ~2025-05-14 | XR_ITS ---
CLINICAL HISTORY: chest pain 2 view chest x-ray. Comparison: None Findings: No consolidation. Heart size normal No acute fracture. Impression: Lungs are clear. This document has been electronically signed by: Olu Dior MD on 05/14/2025 20:08:11
--- NOTE | 2025-05-14 17:30 | ECG_ITS ---
Test Reason : CP Blood Pressure : */* mmHG Vent. Rate : 71 BPM Atrial Rate : 71 BPM P-R Int : 144 ms QRS Dur : 92 ms QT Int : 412 ms P-R-T Axes : 51 3 45 degrees QTcB Int : 447 ms Normal sinus rhythm Nonspecific T wave abnormality Abnormal ECG No previous ECGs available Referred By: Rhea Crowell Electronically Signed By: TARSHA MATHIAS
[2025-05-14 17:46] VITALS: BP 146/69; PULSE 75; RESP 16; TEMP 36.7; O2SAT 100; BMI 25.2
--- NOTE | 2025-05-14 17:51 | ED_ITS ---
[facility] - General Adult General Chief complaint: Neuro Symptoms/Deficit Stated complaint: ? cardiac episode, sent by pcp Time Seen by Provider: 05/15/25 00:28 Source: patient Mode of arrival: ambulatory Limitations: no limitations History of Present Illness ED Provider: Dr. Salmeron HPI narrative: This is a 45-year-old male history of neck surgeries in the past, hyperlipidemia presented hospital today for evaluation of sudden onset of numbness in his left arm which lasted approximately 30 minutes around 07:00 today. He called his primary care doctor and was sent into the hospital for further evaluation. Patient stated that he has some minor left-sided chest pain associated with this as well. Denies any shortness of breath. Patient stated that his numbness in the left arm has resolved. He has notes speech difficulty or weakness in his extremities. Related Data Previous Rx's ?Medication ?Instructions ?Recorded ondansetron 4 mg disintegrating 4 mg PO Q8H PRN nausea and 03/04/25 tablet vomiting #10 tabs oxycodone 5 mg tablet 5 mg PO Q8H PRN severe pain (scale 03/04/25 score 7-10) #6 tabs prednisone 20 mg tablet 20 mg PO DAILY #7 tabs 03/04 tamsulosin 0.4 mg capsule 0.4 mg PO DAILY #14 caps pyridoxine (vitamin B6) 50 mg 50 mg PO DAILY 90 days # 90 tabs 04/17/25 tablet Allergies Allergy/AdvReac Type Severity Reaction Status Date / Time No Known Allergies Allergy Verified 05/14/25 17:50 Review of Systems 2 Review of Systems: Pertinent review of systems as mentioned in HPI. All other system otherwise negative. [facility] Past Medical History [facility] Narrative: Medical history as mentioned in [facility] Social History Social History Substance Use Type: Marijuana Advance Directives: No Advance Directives Information Provided: Yes Do you have a plan to hurt others: No Plan Physical Exam ED Exam Exam: General: Pleasant, no distress, interacting appropriately Head: Normacephalic, atraumatic ENT: oral mucosa moist, neck supple, no tracheal deviation Cardiovascular: regular rate, regular rhythm, no murmurs, rubbing, gallops Respiratory: CTAB, no wheeze, rales, rhonchi Neurological: Awake and alert, no facial droop noted, no focal neurological deficit on exam Skin: Warm and dry Psychiatric: Appropriate mood and thoughts Vital Signs: Vital Signs - 24 hr 05/14/25 17:46 05/15/25 00:10 Temperature 98.0 F 97.8 F Pulse Rate 75 60 Respiratory Rate 16 16 Blood Pressure 146/69 H 138/94 H Pulse Oximetry 100 100 Oxygen Delivery Method Room Air Room Air BMI result Body Mass Index 25.2 Course Course Course Narrative: Rapid medical examination performed in triage by Rhea Crowell PA-C. Patient is a 45 year old assigned male at presenting to the emergency department with left sided arm numbness and chest pain. Detailed physical exam and review of systems are deferred to the senior clinician. EKG, labs., imaging ordered. Patient placed back in the waiting room pending room availability and results. Medical Decision Making Medical Decision Making [facility] Narrative: This is a 45-year-old male presented hospital today for evaluation of left arm paresthesia that resolved after 30 minutes early this morning. Instructed by primary care doctor to go to ER for evaluation. Review patient's lab work EKG and chest x-ray. Troponin is negative here. Chest x-ray is unremarkable. Patient is low risk on heart score. The patient's EKG did not show any signs of STEMI. Patient's lab work did not show any signs At this time patient is asymptomatic no chest pain, no left arm numbness. We will plan to discharge patient at this time. Encouraged him to follow up with his primary care doctor. Return precautions provided. Patient agrees and understands this plan all questions were addressed. I do not think patient is having a stroke I do not think patient is having a heart attack Differential Diagnosis Differential Diagnoses: The differential diagnosis associated with the presentation includes ACS, CAD, STEMI, paresthesia, CVA Lab Data [facility] Lab Attestation statement: I reviewed the patient's lab results. 05/14/25 18:21 05/14/25 18:21 Labs: Lab Results 05/14/25 Range/Units 18:21 WBC 8.8 (4.8-10.8) X10*3/uL RBC 4.05 L (4.60-5.80) X10*6/uL Hgb 12.7 L (14.0-18.0) g/dl Hct 36.6 L (42.0-52.0) % MCV 90.4 (80.0-98.0) fL MCH 31.4 (27.0-33.0) pg MCHC 34.7 (31.0-36.0) g/dl RDW 12.2 (11.0-16.0) % Plt Count 132 L (160-400) X10*3/uL MPV 13.0 H (9.4-12.4) fL Immature Gran % (Auto) Cancelled Neut % (Auto) Cancelled Lymph % (Auto) Cancelled [place] % (Auto) Cancelled Eos % (Auto) Cancelled Baso % (Auto) Cancelled Lymph # (Auto) Cancelled [place] # (Auto) Cancelled Eos # (Auto) Cancelled Baso # (Auto) Cancelled Abs Immat Gran (auto) Cancelled Absolute Neuts (auto) Cancelled Absolute Nucleated RBC 0.000 (0.0-0.012) X10*3/uL Nucleated RBC % (auto) 0.0 (0.0-0.2) /100WBC Neutrophils % (Manual) 74 H (45-73) % Band Neutrophils % 3 (3-5) % Lymphocytes % (Manual) 17 L (20-40) % Monocytes % (Manual) 5 (2-11) % Basophils % (Manual) 1 (0-2) % Abs Neuts (Manual) 6.8 (2.0-8.3) X10*3/uL Lymphocytes # (Manual) 1.5 (1.2-4.9) X10*3/uL Monocytes # (Manual) 0.4 (0.1-1.2) X10*3/uL Basophils # (Manual) 0.1 (0.0-0.2) X10*3/uL Platelet Estimate SLIGHTLY DECREASED (NORMAL) Plt Morphology Comment NORM RBC Morphology NORMAL PT 13.4 H (10.9-12.4) SEC INR 1.2 H (0.9-1.1) Sodium 143 (135-145) mmol/L Potassium 3.4 (3.3-5.1) mmol/L Chloride 113 H (96-108) mmol/L Carbon Dioxide 24 (22-29) mmol/L Anion Gap 9 L (12-20) BUN 12 (9-16) mg/dL Creatinine 1.11 (0.5-1.4) mg/dL Estim Creat Clear Calc 89.5 Estimated GFR > 60 Random Glucose 122 H (60-115) mg/dL Calcium 8.6 (8.4-10.2) mg/dL Magnesium 1.9 (1.6-2.6) mg/dL Total Bilirubin 0.4 (0.0-1.0) mg/dL AST 19 (5-37) U/L ALT 23 (0-40) U/L Alkaline Phosphatase 66 (39-117) U/L Troponin I High Sens < 2.7 (<3.5-35.0) ng/L Total Protein 6.3 L (6.5-8.0) g/dL Albumin 4.2 (3.5-5.0) g/dL Independent Interpretation I performed an independent interpretation of an: EKG and Plain X-Ray Radiology Impression Discussion of test interpretation with radiology: I have reviewed the radiologist's reading. Discharge Plan Discharge Clinical Impression: Atypical chest pain, Arm paresthesia, left Patient Disposition: Home, Self-Care Instructions: Paresthesia (ED) Additional Instructions: Follow up with your primary care doctor for your left arm numbness. IF you have symptoms of unilateral weakness with sensation changes or difficulty of speech return to the ED. These may be signs of stroke. Your Chest xray EKG and cardiac enzyme (troponin) are negative for any signs of cardiac ischemia. Prescriptions: No Action prednisone 20 mg tablet 20 mg PO DAILY Qty: 7 0RF tamsulosin 0.4 mg capsule 0.4 mg PO DAILY Qty: 14 0RF ondansetron 4 mg tablet,disintegrating 4 mg PO Q8H PRN (Reason: nausea and vomiting) Qty: 10 0RF oxycodone 5 mg tablet 5 mg PO Q8H PRN (Reason: severe pain (scale score 7-10)) Qty: 6 0RF Rx Instructions: Partial Fill upon patient request. pyridoxine (vitamin B6) 50 mg tablet 50 mg PO DAILY 90 Days Qty: 90 1RF Print Language: [place] African
[2025-05-14 18:27] LABS: Hematocrit 36.6 % (42.0-52.0); Hemoglobin 12.7 g/dl (14.0-18.0); Mean Corpuscular HGB Conc 34.7 g/dl (31.0-36.0); Mean Corpuscular Hemoglobin 31.4 pg (27.0-33.0); Mean Corpuscular Volume 90.4 fL (80.0-98.0); NRBC Abs Auto 0.000 X10*3/uL (0.0-0.012); NRBC Pct Auto 0.0 /100WBC (0.0-0.2); Platelet Count 132 X10*3/uL (160-400); Red Blood Count 4.05 X10*6/uL (4.60-5.80)
[2025-05-14 18:28] LABS: WBC ABN SCTR FOR CBC 1
[2025-05-14 18:29] LABS: White Blood Count 8.8 X10*3/uL (4.8-10.8)
[2025-05-14 18:33] LABS: INTERNATIONAL NORM RATIO 1.2 (0.9-1.1); Prothrombin Time 13.4 SEC (10.9-12.4)
[2025-05-14 18:40] LABS: Alanine Aminotransferase 23 U/L (0-40); Albumin Level 4.2 g/dL (3.5-5.0); Alkaline Phosphatase 66 U/L (39-117); Anion Gap 9 (12-20); Aspartate Amino Transferase 19 U/L (5-37); Blood Urea Nitrogen 12 mg/dL (9-16); Calcium 8.6 mg/dL (8.4-10.2); Carbon Dioxide 24 mmol/L (22-29); Chloride 113 mmol/L (96-108); Creatinine Clr Calc Pharmacy 89.5; Estimated Glomerular Filt Rate > 60; Magnesium 1.9 mg/dL (1.6-2.6); Potassium 3.4 mmol/L (3.3-5.1); Sodium 143 mmol/L (135-145); Total Protein 6.3 g/dL (6.5-8.0)
[2025-05-14 18:48] LABS: Troponin-I High Sensitivity < 2.7 ng/L (<3.5-35.0)
[2025-05-14 19:29] LABS: Band Neutrophils Percent 3 % (3-5); Basophils Abs Manual 0.1 X10*3/uL (0.0-0.2); Basophils Percent Manual 1 % (0-2); Lymphocytes Absolute Manual 1.5 X10*3/uL (1.2-4.9); Lymphocytes Percent Manual 17 % (20-40); Monocytes Absolute Manual 0.4 X10*3/uL (0.1-1.2); Monocytes Percent Manual 5 % (2-11); Neutrophils Absolute Manual 6.8 X10*3/uL (2.0-8.3); Neutrophils Percent Manual 74 % (45-73)
[2025-05-14 19:31] LABS: RBC Morphology NORMAL
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
--- OUTSIDE RECORDS SUMMARY | 2025-05-14 23:51 | XMS_ITS | Clinical Summary ---
Author Organization [facility] Address [address] [place] [address] Care Team Providers Care Fruit Or Nut Farmworker Name Role Phone Halie Sierra Primary Care Provider [phone] Allergies Active Allergy Reactions Criticality Noted Date [...] Type Department Care Team Description 03/12/2025 Telephone [facility] [address] [place] [phone] Telephone Intake, Staff PAC Patient Request Call Back_Most 03/11/2025 Orders Only External Imaging [address] [place] [address] Radiology, External 02/28/2025 Orders Only External Imaging [address] [place] [address] Radiology, External 02/23/2025 Telephone [facility] [address] [place] [phone] Ashvin Moy MD 02/21/2025 Orders Only External Imaging [address] [place] [address] Radiology, External from Last 3 Months Family [...] Patients (6-50 Years) Completed 03/17/2023 Insurance [employer] [facility] Care Teams Fruit Or Nut Farmworker Relationship Specialty Start Date End Date Halie Sierra PCP - General Internal Medicine 01/26/23
--- OUTSIDE RECORDS SUMMARY | 2025-05-14 23:51 | XMS_ITS | Clinical Summary ---
Author Organization [facility] [place] [address] Phone Care Team Providers Care [employer]ist Name Role Phone Halie Sierra MD Primary Care Provider [phone] Allergies Active Allergy Reactions Criticality Noted Date Comments Coconut GI intolerance 06/21/2024 Sleep walking Mushroom 12/31/2023 Pollens Extract 09/19/2024 Medications atorvastatin (LIPITOR) 10 mg tabletIndications :Type 2 diabetes mellitus without complication, without long-term current use of insulin (CMS/HCC V24, CMS/HCC V28),Mixed hyperlipidemia Take 1 tablet (10 mg total) by mouth 1 (one) time each day. 90 tablet 1 025 Active rimegepant (NURTEC) 75 mg dispersible tabletIndications :Migraine with aura and without status migrainosus, not intractable Dissolve 1 tablet (75 mg total) on top of the tongue 1 (one) time each day if needed for migraine. Prescribe by Dr. Carver, Neurologist Active ergocalciferol (VITAMIN D-2) 1,250 mcg (50,000 unit) capsule Take 1 capsule (50,000 Units total) by mouth 1 (one) time per week. 4 each 025 2025 Active erenumab-aooe (Aimovig Autoinjector) 140 mg/mL injectionIndicati ons:Migraine with aura and without status migrainosus, not intractable Inject 1 mL (140 mg total) under the skin every 28 (twenty-eight) days. 1 mL 5 025 2024 Active topiramate (TOPAMAX) 100 mg tablet Take 1 tablet (100 mg total) by mouth 1 (one) time each day. Prescribe By Neurologist. Dr. Carver 30 each 3 025 Active tamsulosin (FLOMAX) 0.4 mg 24 hr capsule Take 1 capsule (0.4 mg total) by mouth 1 (one) time each day. Prescribed by Er provider for kidney stone 025 Active diclofenac (VOLTAREN) 50 mg EC tablet TAKE 1 TABLET (50 MG TOTAL) BY MOUTH TWICE A DAY NEEDED FOR PAIN DO NOT CRUSH, CHEW, OR SPLIT 180 tablet 1 025 Active diclofenac (VOLTAREN) 50 mg EC tablet Take 1 tablet (50 mg total) by mouth 2 (two) times a day if needed (Pain). Do not crush, chew, or split. 60 tablet 1 025 2024 Discontinued Active Problems Problem Noted Date Diagnosed Date [...] A1c; Future DM2 (diabetes mellitus, type 2) ([facility] V24, S/[facility] V28) 09/11/2018 Assessment & Plan (10/12/2024 5:21 [...] Encounters Date Type Department Care Team Description 05/14/2025 Telephone Adult Medicine [address] [phone] Halie Sierra MD 05/09/2025 9:35 AM EDT - 05/09/2025 11:59 PM EDT Hospital Encounter [address] [phone] Chronic low back pain without sciatica, unspecified back pain laterality Discharge Disposition: Home or Self Care 05/09/2025 9:00 AM EDT Office Visit Adult [address] [phone] Halie Sierra MD Chronic low back pain without sciatica, unspecified back pain laterality (Primary Dx); Type 2 diabetes mellitus without complication, without long-term current use of insulin ([facility] V24, [facility] V28); Mixed hyperlipidemia 05/07/2025 Telephone Adult Medicine [address] [phone] Halie Sierra MD 03/14/2025 9:30 AM EDT Office Visit Adult [address] [phone] Cody Leal, SHELLEY Renal calculi (Primary Dx); Hydronephrosis, unspecified hydronephrosis type; Encounter for examination following treatment at hospital 03/12/2025 Telephone Adult Medicine [address] [phone] Cody Leal NP 03/11/2025 11:13 AM EDT - 03/11/2025 11:59 PM EDT Hospital Encounter [facility] MRI [address] [place] [address] Lesion of right humerus; Pain of right humerus; Abnormal x-ray Discharge Disposition: Home or Self Care 03/07/2025 Telephone Adult Medicine [address] [phone] Cody Leal NP 03/07/[address] [phone] Halie Sierra MD 03/06/[address] [phone] Cody Leal NP 02/28/2025 10:15 AM EDT - 02/28/2025 11:59 PM EDT Hospital Encounter [address] [phone] Pain of right humerus; Chronic pain syndrome Discharge Disposition: Home or Self Care 02/28/2025 9:30 AM EDT Office Visit Adult [address] [phone] Cody Leal NP Pain of right humerus (Primary Dx); Chronic pain syndrome; Prediabetes; Vitamin D deficiency; Encounter for screening for cardiovascular disorders 02/27/[address] [phone] Halie Sierra MD 02/27/2025 Telephone Adult Medicine [address] [place] [address] Halie Sierra MD 02/21/2025 9:45 AM EDT Office Visit Orthopedic Surgery - [place] [address] [place] [address] [address] [place] [address] Marcelino Cedeño MD Postoperative state (Primary Dx) from Last 3 Months Immunizations Immunization Administration Dates Next Due Influenza Quadravalent, MDCK [...] of fusion of cervical spine Diabetes mellitus (CMS/[facility] V 24, CMS/[facility] V28) Migraines Colon polyp Family History Medical [...] for your loved ones. For example, child center assistant or elderly care for an older adult? [...] (181 lb) 05/09/2025 9:14 AM EDT Height 180.3 cm (5' 11 ) 03/14/2025 9:17 AM EDT Body Mass Index 25.24 03/14/2025 9:17 AM EDT Plan of Treatment Upcoming Encounters Date Type Department Care Team (Late st Contact Info) Description 07/23/2025 10:00 AM EST Office Visit [facility] [address] [place] [address] Mehul Kumar MD [address] [place] [address] 07/27/2025 10:30 AM EST Office Visit Adult Medicine [facility] [address] [place] [phone] Halie Sierra MD [address] [place] [address] Health Maintenance Due Date Last Done Comments HPV Vaccines (1 - 3-dose SCDM series) 2007 Medicare Annual Wellness Visit 07/25/2022 Diabetes: Annual [...] Td or Tdap) 10/12/2034 10/12/2024, 03/06/2011 RSV Immunization Adult Patients (1 - 1-dose 75+ series) 2055 COVID-19 Vaccine Discontinued 01/20/2021, 12/30/2020 Pneumococcal Vaccine: [...] pain without sciatica, unspecified back pain laterality HAYES URINE CULTURE TUBE Routine 03/14/2025 10:11 [...] complication, without long-term current use of insulin ([facility] V24, [facility] V28) Mixed hyperlipidemia HIV 1, 2 ANTIBODY, P24 ANTIGEN WITH REFLEX TO DIFFERENTIATION Routine 10/12/2024 9:36 AM EST Migraine with aura and without status migrainosus, not intractable Need for tetanus, diphtheria, and acellular pertussis (Tdap) vaccine Need for prophylactic vaccination and inoculation against influenza Need for hepatitis C screening test Type 2 diabetes mellitus without complication, without long-term current use of insulin ([facility] V24, [facility] V28) Mixed hyperlipidemia MICROALBUMIN CREATININE URINE RATIO Routine 10/12/2024 9:36 AM EST Migraine with aura and without status migrainosus, not intractable Need for tetanus, diphtheria, and acellular pertussis (Tdap) vaccine Need for prophylactic vaccination and inoculation against influenza Need for hepatitis C screening test Type 2 diabetes mellitus without complication, without long-term current use of insulin ([facility] V24, [facility] V28) Mixed hyperlipidemia COLONOSCOPY Routine 06/27/2024 3:44 PM EST Hx of colonic polyps HM DIABETES EYE EXAM Routine 03/23/2024 from Last 3 Months or Most Recently Relevant to Health Maintenance Results * XR Lumbar Spine 4+ Views [...] Signed Date: 05/10/2025 09:44 ET Workstation ID: [id number] Transcribed By: Self Edit Transcribed Date: 05/10/2025 [...] Signed Date: 05/10/2025 09:44 ET Workstation ID: [id number] Transcribed By: Self Edit Transcribed Date: 05/10/2025 09:43 ET us Halie Sierra MD IMG XR PROCEDURES Final Result * (ABNORMAL) Urinalysis with reflex microscopic and culture (03/14/2025 10:11 AM EDT) Specific [place] Urine 1.014 1.003 - 1.030 LAB URINALYSIS - AUTOMATED METHOD 03/14/2025 12:13 PM [facility] pH, Urine 6.5 5.0 - 8.0 pH LAB URINALYSIS - AUTOMATED METHOD 03/14/2025 12:13 PM [facility] Leukocytes, Urine Small(A) Negative LAB URINALYSIS - AUTOMATED METHOD 03/14/2025 12:13 PM [facility] Nitrite, Urine Negative Negative LAB URINALYSIS - AUTOMATED METHOD 03/14/2025 12:13 PM [facility] Protein, Urine Trace <=Trace mg/dL LAB URINALYSIS - AUTOMATED METHOD 03/14/2025 12:13 PM [facility] Glucose, Urine Negative Negative mg/dL LAB URINALYSIS - AUTOMATED METHOD 03/14/2025 12:13 PM [facility] Ketones, Urine Trace(A) Negative mg/dL LAB URINALYSIS - AUTOMATED METHOD 03/14/2025 12:13 PM [facility] Urobilinogen, Urine 1.0 0.2 - 1.0 mg/dL LAB URINALYSIS - AUTOMATED METHOD 03/14/2025 12:13 PM [facility] Bilirubin, Urine Negative Negative LAB URINALYSIS - AUTOMATED METHOD 03/14/2025 12:13 PM [facility] Blood, Urine Negative Negative LAB URINALYSIS - AUTOMATED METHOD 03/14/2025 12:13 PM [facility] RBC, Urine 4.7(H) 0 - 4 /HPF LAB URINALYSIS - AUTOMATED METHOD 03/14/2025 12:13 PM EDT [facility] WBC, Urine 15.8(H) 0 - 4 /HPF LAB URINALYSIS - AUTOMATED METHOD 03/14/2025 12:13 PM [facility] Squamous Epithelial, Urine 38 0 - 60 /LPF LAB URINALYSIS - AUTOMATED METHOD 03/14/2025 12:13 PM [facility] Bacteria, Urine Negative Negative /HPF LAB URINALYSIS - AUTOMATED METHOD 03/14/2025 12:13 PM [facility] Hyaline Casts, Urine 10.8(H) 0 - 3 /LPF LAB URINALYSIS - AUTOMATED METHOD 03/14/2025 12:13 PM [facility] Urine Urine specimen obtained by clean catch procedure / Unknown Non-blood Collection / Unknown 03/14/2025 10:11 AM EDT 03/14/2025 10:11 AM EDT Cody Leal ADDICTION SOCIAL WORKER LAB URINE ORDERABLES Final R esult Performing Organization Address City/[facility]/ZIP Co de Phone Number [facility] [address] [place] [address], [place] [phone] * Hayes urine culture tube (03/14/2025 10:11 AM EDT) Extra Tube Hold for add-ons. 03/14/2025 12:01 PM EDT [facility] Comment:Auto resulted. Urine Urine specimen obtained by clean catch procedure / Unknown Non-blood Collection / Unknown 03/14/2025 10:11 AM EDT 03/14/2025 10:11 AM EDT Cody Leal ADDICTION SOCIAL WORKER LAB URINE ORDERABLES Final R esult Performing Organization Address [facility]/ZIP Co de Phone Number [facility] [address] [place] [address], [place] [phone] * Lipid panel with reflex to direct LDL (03/14/2025 10:11 AM EDT) Cholesterol 120 0 - 200 mg/dL LAB CHEMISTRY METHOD 03/14/2025 12:54 PM EDT [facility] Triglycerides 135 0 - 150 mg/dL LAB CHEMISTRY METHOD 03/14/2025 12:54 PM EDT [facility] HDL 45 >=40 mg/dL LAB CHEMISTRY METHOD 03/14/2025 12:54 PM EDT [facility] LDL Calculated 48 0 - 100 mg/dL LAB CHEMISTRY METHOD 03/14/2025 12:54 PM EDT [facility] VLDL Cholesterol Baljit 27 mg/dL LAB CHEMISTRY METHOD 03/14/2025 12:54 PM EDT [facility] Non HDL Chol. (LDL+VLDL) 75 <145 mg/dL LAB CHEMISTRY METHOD 03/14/2025 12:54 PM EDT [facility] Chol/HDL Ratio 2.7 0.0 - 4.4 LAB CHEMISTRY METHOD 03/14/2025 12:54 PM EDT [facility] Blood Venous blood specimen / Unknown Venipuncture / Unknown 03/14/2025 10:11 AM EDT 03/14/2025 10:11 AM EDT us Cody Leal ADDICTION SOCIAL WORKER LAB BLOOD ORDERABLES Final R esult [facility] [address] [place] [address], * (ABNORMAL) Vitamin D 25 hydroxy (03/14/2025 10:11 AM EDT) Vit D, 25-Hydroxy 104.7(H) 30.0 - 80.0 ng/mL LAB CHEMISTRY METHOD 03/14/2025 1:35 PM EDT [facility] Blood Venous blood specimen / Unknown Venipuncture / Unknown 03/14/2025 10:11 AM EDT 03/14/2025 10:11 AM EDT Cody Leal ADDICTION SOCIAL WORKER LAB BLOOD ORDERABLES Final R esult Performing Organization Address City/[facility]/ZIP Co de Phone Number [facility] [address] [place] [address], [place] [phone] * Culture urine (03/14/2025 10:11 AM EDT) [facility] Culture, Urine No growth 03/15/2025 11:25 AM EDT [facility] Urine Urine specimen obtained by clean catch procedure / Unknown Non-blood Collection / Unknown 03/14/2025 10:11 AM EDT 03/14/2025 12:13 PM EDT Cody Leal ADDICTION SOCIAL WORKER LAB MICROBIOLOGY - GENERAL O RDERABLES Final Result Performing Organization Address [facility]/ZIP Co de Phone Number [facility] [address] [place] [address], [place] [phone] * Hemoglobin A1c (03/14/2025 10:11 AM EDT) [facility] Hemoglobin A1C 5.9 <6.5 % LAB CHEMISTRY METHOD 03/14/2025 1:58 PM EDT [facility] Mean Bld Glu Estim. 123 mg/dL LAB CHEMISTRY METHOD 03/14/2025 1:58 PM EDT [facility] Blood Venous blood specimen / Unknown Venipuncture / Unknown 03/14/2025 10:11 AM EDT 03/14/2025 10:11 AM EDT Cody Leal ADDICTION SOCIAL WORKER LAB BLOOD ORDERABLES Final R esult Performing Organization Address City/[facility]/ZIP Co de Phone Number [facility] [address] [place] [address], [place] [phone] * (ABNORMAL) Basic metabolic panel (03/14/2025 10:11 AM EDT) Sodium 139 133 - 145 mmol/L LAB CHEMISTRY METHOD 03/14/2025 12:54 PM [facility] Potassium 3.5 3.5 - 5.5 mmol/L LAB CHEMISTRY METHOD 03/14/2025 12:54 PM [facility] Chloride 109 96 - 110 mmol/L LAB CHEMISTRY METHOD 03/14/2025 12:54 PM [facility] CO2 25 21 - 32 mmol/L LAB CHEMISTRY METHOD 03/14/2025 12:54 PM [facility] Anion Gap 5 3 - 11 LAB CHEMISTRY METHOD 03/14/2025 12:54 PM [facility] Glucose 164(H) 70 - 100 mg/dL LAB CHEMISTRY METHOD 03/14/2025 12:54 PM [facility] BUN 9 5 - 25 mg/dL LAB CHEMISTRY METHOD 03/14/2025 12:54 PM [facility] Creatinine 1.12 0.70 - 1.30 mg/dL LAB CHEMISTRY METHOD 03/14/2025 12:54 PM [facility] eGFR 83 >=60 mL/min/1. 73m2 LAB CHEMISTRY METHOD 03/14/2025 12:54 PM [facility] Comment:Calculation based on the Chronic Kidney Disease Epidemiology Collaboration (CKD-EPI) equation refit without adjustment for race. BUN/Creatinine Ratio 8.0 LAB CHEMISTRY METHOD 03/14/2025 12:54 PM [facility] Calcium 9.2 8.5 - 10.5 mg/dL LAB CHEMISTRY METHOD 03/14/2025 12:54 PM [facility] Blood Venous blood specimen / Unknown Venipuncture / Unknown 03/14/2025 10:11 AM EDT 03/14/2025 10:11 AM EDT us Cody Leal ADDICTION SOCIAL WORKER LAB BLOOD ORDERABLES Final R esult [facility] [address] [place] [address], [place] [phone] * MR Humerus wo and w Contrast [...] Date: 03/12/2025 03:13 ET Assigned Physician: Lisbeth iXao Reviewed and Electronically Signed By: Lisbeth Xiao Signed Date: 03/12/2025 03:23 ET Workstation ID: [id number] Transcribed By: Self Edit Transcribed Date: 03/12/2025 03:13 ET Narrative 03/12/2025 3:23 AM EDT INDICATION: Abnormal Xray: Expansile mixed lesion in the proximal and mid humerus . History of fibrous dysplasia. COMPARISON: Correlation is made with right shoulder MRI dated October 2023June 2019 TECHNIQUE: Multiplanar, multisequence MRI was performed [...] x 2.8 cm with components that are Z8uedstykcytdy, T2 fat sat hypointense as well as [...] Signed Date: 03/12/2025 03:23 ET Workstation ID: [id number] Transcribed By: Self Edit Transcribed Date: 03/12/2025 03:13 ET Cody Leal NP IMG MRI PROCEDURES Final Res ult * External CT Report (03/04/2025) Only the most recent of2 resultswithin the time period is included. Anatomical Region Laterality Modality Computed Tomogra phy us Provider [facility] PROCEDURES Final Result * XR [...] Signed Date: 02/28/2025 19:31 ET Workstation ID: [id number] Transcribed By: Self Edit Transcribed Date: 02/28/2025 [...] Signed Date: 02/28/2025 19:31 ET Workstation ID: [id number] Transcribed By: Self Edit Transcribed Date: 02/28/2025 19:24 ET Cody Leal NP IMG XR PROCEDURES Final Resu lt [...] LAB CHEMISTRY METHOD 10/12/2024 4:46 PM EST [facility] Blood Venous blood specimen / Unknown Venipuncture / Unknown 10/12/2024 9:36 AM EST 10/12/2024 9:36 AM EST Cody Leal ADDICTION SOCIAL WORKER LAB BLOOD ORDERABLES Final R esult [facility] [address] [place] [address], * HIV 1,2 antibody, p24 antigen with reflex to differentiation (10/12/2024 9:36 AM EST) HIV Combo AB/AG Negative Negative LAB CHEMISTRY METHOD 10/12/2024 4:47 PM EST [facility] Blood Venous blood specimen / Unknown Venipuncture / Unknown 10/12/2024 9:36 AM EST 10/12/2024 9:36 AM EST Narrative [facility] - 10/12/2024 4:47 PM EST This assay is a 4th generation assay allowing for earlier detection of HIV infection by detecting the presence of the HIV-1 p24 antigen as well as the traditional antibodies to HIV type 1 (including group O) and type 2. Use of a 4th generation assay is the current CDC recommendation for HIV screening. Cody Leal ADDICTION SOCIAL WORKER LAB BLOOD ORDERABLES Final R esult [facility] [address] [place] [address], [place] [phone] * Microalbumin creatinine urine ratio (10/12/2024 9:36 AM EST) Creatinine, Urine 323.0 mg/dL LAB CHEMISTRY METHOD 10/12/2024 2:32 PM EST [facility] Microalb, Ur 25.9 0.0 - 29.0 mg/L LAB CHEMISTRY METHOD 10/12/2024 2:32 PM EST [facility] Microalb/Creat Ratio 8 <30 mg/g creat LAB CHEMISTRY METHOD 10/12/2024 2:32 PM EST [facility] Urine Urine specimen obtained by clean catch procedure / Unknown Non-blood Collection / Unknown 10/12/2024 9:36 AM EST 10/12/2024 9:36 AM EST Cody Leal ADDICTION SOCIAL WORKER LAB URINE ORDERABLES Final R esult [facility] [address] [place] [address], [place] [phone] * COLONOSCOPY Anesthesia - MAC; [facility] ENDOSCOPY (06/27/2024 3:44 PM EST) Anatomical Region Laterality Modality Other 06/27/2024 3:17 PM EST Narrative 06/27/2024 3:45 PM EST [facility] GI Patient Name: Ivan Cueva Procedure Date: 06/27/2024 3:17 PM Date [...] K64.0, First degree hemorrhoids CPT copyright 2020 [employer]. All rights reserved. The codes documented in this report are preliminary and upon pouch maker review may be revised to meet current compliance requirements. Scott Frederick MD Scott Frederick MD 06/27/2024 3:45:09 PM This report has been signed electronically.Scott Frederick MD Number of Addenda: 0 Note Initiated On: 06/27/2024 3:17 PM Scope In: Scope Out: Endoscopy Department at [facility] - [address] [place] [phone] Procedure Note Scott Frederick MD - 06/27/2024 [facility] GI Patient Name: Ivan Cueva Procedure Date: 06/27/2024 3:17 PM Date [...] K64.0, First degree hemorrhoids CPT copyright 2020 [employer]. All rights reserved. The codes documented in this report are preliminary and upon pouch maker reviewmay be revised to meet current compliance requirements. Scott Frederick MD Scott Frederick MD 06/27/2024 3:45:09 PM This report has been signed electronically.Scott Frederick MD Number of Addenda: 0 Note Initiated On: 06/27/2024 3:17 PM Scope In: Scope Out: Endoscopy Department at [facility] - [address] [place] [phone] Scott Frederick MD GI~PROCEDURE ORDERABLES Final Re sult * Hm Diabetes Eye Exam (03/23/2024) Diabetes: Annual Retina Eye Exam abstracted Historical Provider HEALTH MAINTENANCE Final Result from Last 3 Months or Most Recently Relevant to Health Maintenance Insurance [employer] MEDICARE ADVANTAGE MEDICAID - [place] Care Teams Foundry Metallurgist Relationship Specialty Start Date End Date Halie Sierra MD [address] [place] [address] PCP - General Internal Medicine 06/07/19
[2025-05-15 00:10] VITALS: BP 138/94; PULSE 60; RESP 16; TEMP 36.6; O2SAT 100
[2025-05-15 01:00] VITALS: BP 138/94; PULSE 60; RESP 16; TEMP 36.6; O2SAT 100
== END 2025-05-15 01:02 | disposition home or self-care (01) ==
PROVIDERS: Physician Assistant Medical; Emergency Provider Student in an Organized Health Care Education/Training Program; PCP Internal Medicine
DX: R07.89 Other chest pain (principal); R20.2 Paresthesia of skin; Z79.899 Other long term (current) drug therapy
CPT/HCPCS: 36415; 71046; 80053; 83735; 84484; 85007; 85027; 85610; 93005; 99283; 99285

== ENCOUNTER → 2025-05-14 17:30 | Outpatient (BNV) | payer MEDICARE, SELFPAY | PROVIDERS: Emergency Provider Student in an Organized Health Care Education/Training Program; PCP Internal Medicine; Visit Provider Internal Medicine | DX: R94.31 Abnormal electrocardiogram [ECG] [EKG] (principal); R07.89 Other chest pain | CPT/HCPCS: 93010 ==

== ENCOUNTER → 2025-05-14 17:52 | Outpatient (BNV) | payer MEDICARE, MEDICAID, SELFPAY | PROVIDERS: PCP Internal Medicine; Visit Provider Radiology Diagnostic Radiology | DX: R07.89 Other chest pain (principal) | CPT/HCPCS: 71046 ==

== ENCOUNTER 2025-07-06 11:11 | Outpatient (AMB) | payer MEDICARE, MEDICAID, SELFPAY ==
[2025-07-06 11:17] VITALS: BP 125/81; PULSE 71
--- NOTE | 2025-07-06 11:17 | A.PHYSOV_ITS ---
Vital Signs 07/06/25 11:17 Height 5 ft 11 in BP 125/81 Pulse 71 Intake Visit Reasons: Right Lumbar Transforaminal Epidural Injection L5 Intake Note: Patient is a 45 year old male in office today for a Right L5 Transforaminal Epidural Injection. Fly Setter Required: No Allergies No Known Allergies Allergy (Verified 07/06/25 11:13) [facility] Medical History (Updated 07/06/25 @ 11:23 by Osiel Green DO) Lumbar radiculitis Surgical History (Updated 07/06/25 @ 11:21 by Savannah Narayan MA) History of surgery on lower extremity H/O shoulder surgery History of neck surgery History of back surgery Social History Household Members: Spouse Alcohol intake: current Patient Tobacco Use Status: Current everyday Tobacco user Substance Use Type: Marijuana Current occupational status: unemployed Physical Exam Vital Signs: Last Vital Signs Pulse 71 07/06/25 11:17 BP 125/81 07/06/25 11:17 Office Procedures Procedure Details: Procedure performed: Right L5 transforaminal epidural steroid injection Preop diagnosis: Lumbar radiculitis Postop diagnosis: The same Anesthesia: Local After informed consent was obtained, patient was placed on the procedure table in a prone position. Skin over lumbosacral area was prepped and draped in usual sterile manner. Right L5 pedicle was visualized utilizing fluoroscopy. 3.5 inch 22 gauge spinal needle was introduced percutaneously and advanced towards the pedicle at about 6 o'clock position. Once level of neural foramina was reached, needle placement was verified utilizing 3 cc of Omnipaque contrast solution. Excellent flow through the neural foramina and epidural spread was identified without evidence of vascular uptake. Total volume of 6 cc containing 2 cc of 1% lidocaine, 40 mg of triamcinolone and normal saline solution were injected after negative aspiration for blood and cerebrospinal fluid. Radiation exposure was documented in the chart. Lumbar transforaminal Epidural Steroid Inj- use with FL Gd: 81486 - Single Procedure code (CPT) selection complete Office Meds Kenalog 40 mg/mL suspension for injection Performing Provider: Osiel Green DO Performing Location[place] [facility] Administered by: Osiel Green DO on 07/06/25 11:23 Dose Route Admin Location Dispensed Lot Number Expiration Date [place] [employer] Worker 40 mg epidural 1 mL [address]-2 [employer] Total Dispensed Waste 1 mL 0 % lidocaine (PF) 10 mg/mL (1 %) injection solution Performing Provider: Osiel Green DO Performing Location: [facility] Administered by: Osiel Green DO on 07/06/25 11:23 Dose Route Admin Location Dispensed Lot Number Expiration Date [facility] Pharmaceutical Worker 50 mg epidural 5 mL [id number] [facility] Total Dispensed Waste 5 mL 0 % Omnipaque 300 300 mg iodine/mL intravenous solution Performing Provider: Osiel Green DO Performing Location: [facility] Administered by: Osiel Green DO on 07/06/25 11:23 Dose Route Admin Location Dispensed Lot Number Expiration Date [facility] Pharmaceutical Worker 3 mL epidural 10 mL [id number] [facility] Total Dispensed Waste 10 mL 70 % Assessment & Plan Assessment & Plan (1) Lumbar radiculitis: Code(s): M54.16 - Radiculopathy, lumbar region Category: Medical Plan Right L5 TFESI Orders: Orders FL Gd Lumbar Transforaminal In Today M54.16 - Radiculopathy, lumbar region AMB Lumbar transforaminal Epidural Steroid Injection Today M54.16 - Radiculopathy, lumbar region Coding Level of Care Code Procedure Only Diagnoses Lumbar radiculitis M54.16 CPT Codes Lumbar transforaminal Epidural Steroid I - CPT TRANSFORM: 58898 - Single ([id number])
--- OUTSIDE RECORDS SUMMARY | 2025-07-06 12:02 | XMS_ITS | Encounter Summary ---
Author Organization [facility] Address [address] [place] [address] Care Team Providers Care Peoplesoft Financials Consultant Name Role Phone Ryann Richardson MD Primary Care Provider Un available Halie Sierra MD Primary Care Provider [phone] Madhavi Gloria MD Unavailable [phone] Encounter Details Date Type Department Care Team Description 09/28/2018 Release of Information Medical Records [address] [place] [address] Abstract, Provider Social History Tobacco Use Types [...] on filedocumented in this encounter Care Teams Peoplesoft Financials Consultant Relationship Specialty Start Date End Date Ryann Richardson MD PCP - General Internal Medicine 05/30/1806/06 Halie Sierra MD [address] [place] [address] PCP - General Internal Medicine 06/07/19 Madhavi Gloria MD [address] [place] [address] Specialist Cardiology 03/21/24 documented as of this encounter
--- OUTSIDE RECORDS SUMMARY | 2025-07-06 12:02 | XMS_ITS | Encounter Summary ---
Author Organization [facility] Address [address] [place] [address] Care Team Providers Care Movie Projectionist Name Role Phone Halie Sierra MD Primary Care Provider [phone] Madhavi Gloria MD Unavailable [phone] Encounter Details Date Type Department Care Team Description 09/03/2023 Health Data Analyst Report Medical Records [address] [place] [address] Erick Jacobs MD Social History Tobacco Use [...] on filedocumented in this encounter Care Teams Movie Projectionist Relationship Specialty Start Date End Date Halie Sierra MD [address] [place] [address] 18280 PCP - General Internal Medicine 06/07/19 Madhavi Gloria MD [address] [place] [address] Specialist Cardiology 03/21/24 documented as of this encounter
--- OUTSIDE RECORDS SUMMARY | 2025-07-06 12:02 | XMS_ITS | Encounter Summary ---
Author Organization [facility] Address [address] [place] [address] Care Team Providers Care Emergency Department Director Name Role Phone Halie Sierra MD Primary Care Provider [phone] Madhavi Gloria MD Unavailable [phone] Encounter Details Date Type Department Care Team Description 05/14/2021 Metal Coater Operator Report Medical Records [address] [place] [address] Beti Urias MD Social History Tobacco Use [...] filedocumented in this encounter Care Teams Emergency Department Director Relationship Specialty Start Date End Date Halie Sierra MD [address] [place] [address]67 PCP - General Internal Medicine 06/07/19 Madhavi Gloria MD [address] [place] [address] Specialist Cardiology 03/21/24 documented as of this encounter
--- OUTSIDE RECORDS SUMMARY | 2025-07-06 12:02 | XMS_ITS | Encounter Summary ---
Author Organization [facility] Address [address] [place] [address] Care Team Providers Care Contract Administration Manager Name Role Phone Halie Sierra MD Primary Care Provider [phone] Madhavi Gloria MD Unavailable [phone] Encounter Details Date Type Department Care Team Description 10/15/[address] [facility] [address] [facility] [address] [place] [phone] Marcelino Cedeño MD [address] [facility] [address] [place] [address] Social History Tobacco Use Types Packs/Day Years [...] on filedocumented in this encounter Care Teams Contract Administration Manager Relationship Specialty Start Date End Date Halie Sierra MD [address] [place] [address] 51247 PCP - General Internal Medicine 06/07/19 Madhavi Gloria MD [address] [place] [address] 32422 Specialist Cardiology 03/21/24 documented as of this encounter
--- OUTSIDE RECORDS SUMMARY | 2025-07-06 12:02 | XMS_ITS | Clinical Summary ---
Author Organization [facility] Address [address] [place] [address] Care Team Providers Care Licensed Massage Practitioner Name Role Phone Halie Sierra Primary Care Provider [phone] Allergies Active Allergy Reactions Criticality Noted Date [...] mellitus, type 2) 09/11/2018 Viral syndrome 07/13/2016 Family History Medical History Relation Name Comments [...] Drivers of Health Marni ual Screening 08/16/2024 Influenza Vaccine (#1) 2025 , 05/25/2022, 05/28/2021, Additional history exists COVID-19 Vaccine (3 - 2024-2 6 season) 2025 01/20/2021, 12/30/2020 Basic Metabolic Panel 10/12/2025 10/12/2024 FOBT / Fit Test 10/12/2025 10/12/2024 Urine Microalbumin 10/12/2025 10/12/2024 Colon Cancer Screening 06/27/2034 Colonoscopy 06/27/2034 06/27/2024 DTaP,Tdap,and Td Vaccines (3 - Td or Tdap) 10/12/2034 10/12/2024, 03/06/2011 Pneumococcal Vaccine: Pediat mateus (0-5 Years) and At-Risk Patients (6-50 Years) Completed 03/17/2023 Insurance [employer] [facility] Care Teams Licensed Massage Practitioner Relationship Specialty Start Date End Date Halie Sierra PCP - General Internal Medicine 01/26/23
--- OUTSIDE RECORDS SUMMARY | 2025-07-06 12:02 | XMS_ITS | Encounter Summary ---
Author Organization [facility] Address [address] [place] [address] Care Team Providers Care Overhead Crane Truck Loader Name Role Phone Halie Sierra MD Primary Care Provider [phone] Madhavi Gloria MD Unavailable [phone] Encounter Details Date Type Department Care Team Description 02/17/2022 Roof Tiler Report Medical Records [address] [place] [address] Beti Urias MD Social History Tobacco Use [...] on filedocumented in this encounter Care Teams Overhead Crane Truck Loader Relationship Specialty Start Date End Date Halie Sierra MD [address] [place] [address] 40044 PCP - General Internal Medicine 06/07/19 Madhavi Gloria MD [address] [place] [address] Specialist Cardiology 03/21/24 documented as of this encounter
--- OUTSIDE RECORDS SUMMARY | 2025-07-06 12:02 | XMS_ITS | Encounter Summary ---
Author Organization [facility] Address [address] [place] [address] Care Team Providers Care Burrer Marker Axle Name Role Phone Halie Sierra MD Primary Care Provider [phone] Madhavi Gloria MD Unavailable [phone] Encounter Details Date Type Department Care Team Description 11/12/2020 Helminthologist Report Medical Records [address] [place] [address] Beti Urias MD Social History Tobacco Use [...] have Coronavirus / COVID-19? No / Unsure 11/11/2020 2:31 PM EDT documented as of this encounter Plan of Treatment Not on file documented as of this encounter Visit Diagnoses Not on filedocumented in this encounter Care Teams Burrer Marker Axle Relationship Specialty Start Date End Date Halie Sierra MD [address] [place] [address] 60930 PCP - General Internal Medicine 06/07/19 Madhavi Gloria MD [address] [place] [address] Specialist Cardiology 03/21/24 documented as of this encounter
--- OUTSIDE RECORDS SUMMARY | 2025-07-06 12:02 | XMS_ITS | Encounter Summary ---
Author Organization [facility] Address [address] [place] [address] Care Team Providers Care File Clerk Data Entry Name Role Phone Ryann Richardson MD Primary Care Provider Un available Halie Sierra MD Primary Care Provider [phone] Madhavi Gloria MD Unavailable [phone] Encounter Details Date Type Department Care Team Description 09/08/2018 Orders Only Adult Medicine [address] [address] Jacob Sanders NP Elevated random blood glucose level (Primary Dx) Social History Tobacco Use Types Packs/Day Years [...] on file documented as of this encounter Results * (ABNORMAL) HEMOGLOBIN A1C (09/09/2018 8:50 AM EST) GLYCATED HEMOGLOBIN A1C 6.5(H) <6.5 % 09/09/2018 1:22 PM EST [facility] ESTIMATED AVERAGE GLUCOSE 140 mg/dL 09/09/2018 1:22 PM EST [facility] 09/09/2018 8:50 AM EST 09/09/2018 8:51 AM EST Jacob Sanders MANAGER [facility] documented in this encounter Visit Diagnoses Diagnosis Elevated random blood glucose level- Primary Other abnormal glucose documented in this encounter Care Teams File Clerk Data Entry Relationship Specialty Start Date End Date Ryann Richardson MD PCP - General Internal Medicine 05/30/1806/06 Halie Sierra MD [address] [place] [address] PCP - General Internal Medicine 06/07/19 Madhavi Gloria MD [address] [place] [address] Specialist Cardiology 03/21/24 documented as of this encounter
--- OUTSIDE RECORDS SUMMARY | 2025-07-06 12:02 | XMS_ITS | Encounter Summary ---
Author Organization [facility] Address [address] [place] [address] Care Team Providers Care Investigative Analyst Name Role Phone Halie Sierra MD Primary Care Provider [phone] Madhavi Gloria MD Unavailable [phone] Encounter Details Date Type Department Care Team Description 07/28/2021 Orders Only Adult Medicine [address] [address] Halie Sierra MD [address] [place] [address] [phone] COVID-19 (Primary Dx) Social History Tobacco Use Types [...] as of this encounter Visit Diagnoses Diagnosis COVID-19- Primary documented in this encounter Care Teams Investigative Analyst Relationship Specialty Start Date End Date Halie Sierra MD [address] [place] [address] PCP - General Internal Medicine 06/07/19 Madhavi Gloria MD [address] [place] [address] 19758 Specialist Cardiology 03/21/24 documented as of this encounter
--- OUTSIDE RECORDS SUMMARY | 2025-07-06 12:02 | XMS_ITS | Encounter Summary ---
Author Organization [facility] Address [address] [place] [address] Care Team Providers Care Hair Baler Name Role Phone Halie Sierra MD Primary Care Provider [phone] Madhavi Gloria MD Unavailable [phone] Encounter Details Date Type Department Care Team Description 05/21/2023 Telephone Physiatry - [address] [phone] Halie Sierra MD [address] [place] [address] [phone] Social History Tobacco Use Types Packs/Day Years [...] on filedocumented in this encounter Care Teams Hair Baler Relationship Specialty Start Date End Date Halie Sierra MD [address] [place] [address] 99693 PCP - General Internal Medicine 06/07/19 Madhavi Gloria MD [address] [place] [address] Specialist Cardiology 03/21/24 documented as of this encounter
--- OUTSIDE RECORDS SUMMARY | 2025-07-06 12:02 | XMS_ITS | Encounter Summary ---
Author Organization [facility] Address [address] [place] [address] Care Team Providers Care Roller Machine Operator Name Role Phone Halie Sierra MD Primary Care Provider [phone] Madhavi Gloria MD Unavailable [phone] Reason for Visit * Reason Onset Date Comments VNA Call 06/24/2021 Encounter Details Date Type Department Care Team Description 06/24/2021 Telephone Adult Medicine [address] [phone] Halie Sierra MD [address] [place] [address] [phone] VNA Call Social History Tobacco Use Types [...] Was this information faxed over with the [facility] adult foster care pcp order form? * Telephone Encounter - Barbara Jaramillo - 06/24/2021 10:02 AM EST VNA CALL Which [facility]NA office is calling? [facility] Full name of caller: Ani The caller is A nurse Is the caller at the patients home?: NO Reason for call: Wants last physical exam and last office visit with cinical documention that supports his health at home faxed over. Does caller need an urgent call back? NO Was CONTACT Telephone # obtained above?: YES Fax #: [phone] documented in this encounter Plan of Treatment Not on file documented as of this encounter Visit Diagnoses Not on filedocumented in this encounter Care Teams Roller Machine Operator Relationship Specialty Start Date End Date Halie Sierra MD [address] [place] [address]29 PCP - General Internal Medicine 06/07/19 Madhavi Gloria MD [address] [place] [address] 03929 Specialist Cardiology 03/21/24 documented as of this encounter
--- OUTSIDE RECORDS SUMMARY | 2025-07-06 12:02 | XMS_ITS | Encounter Summary ---
Author Organization [facility] Address [address] [place] [address] Care Team Providers Care Predator Control Trapper Name Role Phone Halie Sierra MD Primary Care Provider [phone] Madhavi Gloria MD Unavailable [phone] Reason for Visit * Reason Onset Date Comments Failed COVID Screening 07/25/2021 Encounter Details Date Type Department Care Team Description 07/25/2021 Telephone Adult Medicine [address] [phone] Halie Sierra MD [address] [place] [address] [phone] Failed COVID Screening Social History Tobacco Use Types Packs/Day Years [...] encounter Miscellaneous Notes * Telephone Encounter - Mathew Enriquez - 07/25/2021 11:33 AM EST Patient was positive covid 07/23/21 , first test was negative , second test was positve , patient taking care of family and family is positve , wants to let provider know , no fever or sore throat , has some light congestion and some flem build up and a slight cough but nothing patient is worried about documented in this encounter Plan of Treatment Not on file documented as of this encounter Visit Diagnoses Not on filedocumented in this encounter Care Teams Predator Control Trapper Relationship Specialty Start Date End Date Halie Sierra MD [address] [place] [address] 82469 PCP - General Internal Medicine 06/07/19 Madhavi Gloria MD [address] [place] [address] 66681 Specialist Cardiology 03/21/24 documented as of this encounter
--- OUTSIDE RECORDS SUMMARY | 2025-07-06 12:02 | XMS_ITS | Encounter Summary ---
Author Organization [facility] Address [address] [place] [address] Care Team Providers Care Funeral Service Manager Name Role Phone Ryann Richardson MD Primary Care Provider Un available Halie Sierra MD Primary Care Provider [phone] Madhavi Gloria MD Unavailable [phone] Encounter Details Date Type Department Care Team Description 09/21/2018 Workers Compensation Claims Adjuster Report Medical Records [address] [place] [address] [place] [address] [place] [address] Social History Tobacco Use Types Packs/Day Years [...] on filedocumented in this encounter Care Teams Funeral Service Manager Relationship Specialty Start Date End Date Ryann Richardson MD PCP - General Internal Medicine 05/30/1806/06 Halie Sierra MD [address] [place] [address]77 PCP - General Internal Medicine 06/07/19 Madhavi Gloria MD [address] [place] [address] 74562 Specialist Cardiology 03/21/24 documented as of this encounter
--- OUTSIDE RECORDS SUMMARY | 2025-07-06 12:02 | XMS_ITS | Encounter Summary ---
Author Organization [facility] Address [address] [place] [address] Care Team Providers Care Doll Wigs Hackler Name Role Phone Halie Sierra MD Primary Care Provider [phone] Madhavi Gloria MD Unavailable [phone] Encounter Details Date Type Department Care Team Description 07/13/2023 Cobol Mainframe Developer Report Medical Records [address] [place] [address] Osiel Green, Social History Tobacco Use Types [...] on filedocumented in this encounter Care Teams Doll Wigs Hackler Relationship Specialty Start Date End Date Halie Sierra MD [address] [place] [address] 59657 PCP - General Internal Medicine 06/07/19 Madhavi Gloria MD [address] [place] [address] 65660 Specialist Cardiology 03/21/24 documented as of this encounter
--- OUTSIDE RECORDS SUMMARY | 2025-07-06 12:02 | XMS_ITS | Encounter Summary ---
Author Organization [facility] Address [address] [place] [address] Care Team Providers Care Field Assistant Name Role Phone Halie Sierra MD Primary Care Provider [phone] Madhavi Gloria MD Unavailable [phone] Encounter Details Date Type Department Care Team Description 04/03/2022 Telephone Adult Medicine [address] [phone] Halie Sierra MD [address] [place] [address] [phone] Social History Tobacco Use Types Packs/Day Years [...] on filedocumented in this encounter Care Teams Field Assistant Relationship Specialty Start Date End Date Halie Sierra MD [address] [place] [address]20 PCP - General Internal Medicine 06/07/19 Madhavi Gloria MD [address] [place] [address] 24421 Specialist Cardiology 03/21/24 documented as of this encounter
--- OUTSIDE RECORDS SUMMARY | 2025-07-06 12:02 | XMS_ITS | Encounter Summary ---
Author Organization [facility] Address [address] [place] [address] Care Team Providers Care Dining Room Busser Name Role Phone Ryann Richardson MD Primary Care Provider Un available Halie Sierra MD Primary Care Provider [phone] Madhavi Gloria MD Unavailable [phone] Reason for Visit * Reason Onset Date Comments Medication 09/21/2018 Encounter Details Date Type Department Care Team Description 09/21/2018 Telephone Gastroenterology - [address] [place] [address] Star Winter MD Medication Social History Tobacco Use Types Packs/Day Years [...] encounter Miscellaneous Notes * Telephone Encounter - Catie Wilkerson - 09/21/2018 1:[address] Winter, please send prep to pharmacy documented in this encounter Plan of Treatment Not on file documented as of this encounter Visit Diagnoses Not on filedocumented in this encounter Care Teams Dining Room Busser Relationship Specialty Start Date End Date Ryann Richardson MD PCP - General Internal Medicine 05/30/1806/06 Halie Sierra MD [address] [place] [address] 45467 PCP - General Internal Medicine 06/07/19 Madhavi Gloria MD [address] [place] [address]70 Specialist Cardiology 03/21/24 documented as of this encounter
--- OUTSIDE RECORDS SUMMARY | 2025-07-06 12:02 | XMS_ITS | Encounter Summary ---
Author Organization [facility] Address [address] [place] [address] Care Team Providers Care Tonguer Name Role Phone Halie Sierra MD Primary Care Provider [phone] Madhavi Gloria MD Unavailable [phone] Encounter Details Date Type Department Care Team Description 09/27/2019 Nursery Teacher Report Medical Records [address] [place] [address] Beti Urias MD Social History Tobacco Use [...] on filedocumented in this encounter Care Teams Tonguer Relationship Specialty Start Date End Date Halie Sierra MD [address] [place] [address] 24362 PCP - General Internal Medicine 06/07/19 Madhavi Gloria MD [address] [place] [address] 9[address] Specialist Cardiology 03/21/24 documented as of this encounter
--- OUTSIDE RECORDS SUMMARY | 2025-07-06 12:02 | XMS_ITS | Encounter Summary ---
Author Organization [facility] Address [address] [place] [address] Care Team Providers Care Rope Laying Machine Operator Name Role Phone Halie Sierra MD Primary Care Provider [phone] Madhavi Gloria MD Unavailable [phone] Encounter Details Date Type Department Care Team Description 01/08/2022 Orders Only Gastroenterology - [address] [place] [phone] Star Winter MD Rectal pressure; Paroxysmal proctalgia Social History Tobacco Use Types Packs/Day Years [...] Procedure Name Priority Date/Time Associated Diagnosis Comments MRI PELVIS; W/WO CONTRAST MAT Routine 12/30/2021 Rectal pressure Paroxysmal proctalgia documented in this encounter Results * MRI PELVIS; W/WO CONTRAST MAT (12/30/2021) Star Winter MD MRI documented in this encounter Visit Diagnoses Diagnosis Rectal pressure Other symptoms involving digestive system Paroxysmal proctalgia Anal spasm documented in this encounter Care Teams Rope Laying Machine Operator Relationship Specialty Start Date End Date Halie Sierra MD [address] [place] [address] PCP - General Internal Medicine 06/07/19 Madhavi Gloria MD [address] [place] [address] Specialist Cardiology 03/21/24 documented as of this encounter
--- OUTSIDE RECORDS SUMMARY | 2025-07-06 12:02 | XMS_ITS | Encounter Summary ---
Author Organization [facility] Address [address] [place] [address] Care Team Providers Care Crm Marketing Analyst Name Role Phone Halie Sierra MD Primary Care Provider [phone] Madhavi Gloria MD Unavailable [phone] Encounter Details Date Type Department Care Team Description 05/27/2023 It Operations Manager Report Medical Records [address] [place] [address] Erick Jacobs MD Social History Tobacco Use [...] on filedocumented in this encounter Care Teams Crm Marketing Analyst Relationship Specialty Start Date End Date Halie Sierra MD [address] [place] [address] PCP - General Internal Medicine 06/07/19 Madhavi Gloria MD [address] [place] [address] 11747 Specialist Cardiology 03/21/24 documented as of this encounter
--- OUTSIDE RECORDS SUMMARY | 2025-07-06 12:02 | XMS_ITS | Encounter Summary ---
Author Organization [facility] Address [address] [place] [address] Care Team Providers Care Director Of Neighborhood Service Center Name Role Phone Halie Sierra MD Primary Care Provider [phone] Madhavi Gloria MD Unavailable [phone] Encounter Details Date Type Department Care Team Description 07/13/2023 SCAN [facility] [address] [facility] [address] [place] [phone] Marcelino Cedeño MD [address] [facility] [address] [place] [address] Social History Tobacco Use Types Packs/Day Years [...] on filedocumented in this encounter Care Teams Director Of Neighborhood Service Center Relationship Specialty Start Date End Date Halie Sierra MD [address] [place] [address] PCP - General Internal Medicine 06/07/19 Madhavi Gloria MD [address] [place] [address] 36261 Specialist Cardiology 03/21/24 documented as of this encounter
--- OUTSIDE RECORDS SUMMARY | 2025-07-06 12:02 | XMS_ITS | Encounter Summary ---
Author Organization [facility] Address [address] [place] [address] Care Team Providers Care Deburring Technician Name Role Phone Halie Sierra MD Primary Care Provider [phone] Madhavi Gloria MD Unavailable [phone] Encounter Details Date Type Department Care Team Description 10/18/2023 Basket Turner Report Medical Records [address] [place] [address] Avila Cervantes PA-C Social History Tobacco Use [...] on filedocumented in this encounter Care Teams Deburring Technician Relationship Specialty Start Date End Date Halie Sierra MD [address] [place] [address] PCP - General Internal Medicine 06/07/19 Madhavi Gloria MD [address] [place] [address]187 Specialist Cardiology 03/21/24 documented as of this encounter
--- OUTSIDE RECORDS SUMMARY | 2025-07-06 12:02 | XMS_ITS | Encounter Summary ---
Author Organization [facility] Address [address] [place] [address] Care Team Providers Care Technical Recruiter Name Role Phone Halie Sierra MD Primary Care Provider [phone] Madhavi Gloria MD Unavailable [phone] Reason for Visit * Reason Onset Date Comments Medication 06/09/2024 Encounter Details Date Type Department Care Team Description 06/09/2024 Refill Gastroenterology - [place] [address] [facility] [address] [place] [phone] Scott Fredeirck MD [address] [facility] [address] [place] [address] Medication Social History Tobacco Use Types Packs/Day [...] on filedocumented in this encounter Care Teams Technical Recruiter Relationship Specialty Start Date End Date Halie Sierra MD [address] [place] [address] PCP - General Internal Medicine 06/07/19 Madhavi Gloria MD [address] [place] [address] 61473 Specialist Cardiology 03/21/24 documented as of this encounter
--- OUTSIDE RECORDS SUMMARY | 2025-07-06 12:03 | XMS_ITS | Encounter Summary ---
Author Organization [facility] Address [address] [place] [address] Care Team Providers Care S3B Multi Sensor Operator Name Role Phone Halie Sierra MD Primary Care Provider [phone] Madhavi Gloria MD Unavailable [phone] Encounter Details Date Type Department Care Team Description 12/23/2022 Armhole Sewer Report Medical Records [address] [place] [address] Erick Jacobs MD Social History Tobacco Use [...] on filedocumented in this encounter Care Teams S3B Multi Sensor Operator Relationship Specialty Start Date End Date Halie Sierra MD [address] [place] [address] 17414 PCP - General Internal Medicine 06/07/19 Madhavi Gloria MD [address] [place] [address] 68165 Specialist Cardiology 03/21/24 documented as of this encounter
--- OUTSIDE RECORDS SUMMARY | 2025-07-06 12:03 | XMS_ITS | Encounter Summary ---
Author Organization [facility] Address [address] [place] [address] Care Team Providers Care Internet Marketing Intern Name Role Phone Ryann Richardson MD Primary Care Provider Un available Halie Sierra MD Primary Care Provider [phone] Madhavi Gloria MD Unavailable [phone] Encounter Details Date Type Department Care Team Description 05/22/2019 Orders Only Adult Medicine [address] [address] Jacob Sanders NP Social History Tobacco Use [...] on filedocumented in this encounter Care Teams Internet Marketing Intern Relationship Specialty Start Date End Date Ryann Richardson MD PCP - General Internal Medicine 05/30/1806/06 Halie Sierra MD [address] [place] [address] 93898 PCP - General Internal Medicine 06/07/19 Madhavi Gloria MD [address] [place] [address] [phone] Specialist Cardiology 03/21/24 documented as of this encounter
--- OUTSIDE RECORDS SUMMARY | 2025-07-06 12:03 | XMS_ITS | Encounter Summary ---
Author Organization [facility] Address [address] [place] [address] Care Team Providers Care Shuttle Hand Name Role Phone Halie Sierra MD Primary Care Provider [phone] Madhavi Gloria MD Unavailable Reason for Visit * Reason Onset Date Comments Pre-visit Diabetes Lab Adult Medicine 07/04/2019 Dm due 07/18/2019 at 930 am Encounter Details Date Type Department Care Team Description 07/04/2019 Telephone Respiratory and Diabetes Medicaid/ACO Pharmacist [address] [place] [address] [phone] Halie Sierra MD [address] [place] [address] [phone] Pre-visit Diabetes Lab Adult Medicine (Dm due 07/18/2019 at 930 am ) Social History Tobacco Use Types Packs/Day Years [...] encounter Miscellaneous Notes * Telephone Encounter - Jacob Sanders NP - 07/04/2019 12:15 PM EST Signed and sent. Thanks, * Telephone Encounter - Ana Lopez - 07/04/2019 8:25 AM EST Ivan Donovan is scheduled to see you on 07/18/2019 for diabetes follow up . I have contactedthe patient and instructed them to have their labwork done 1 week prior to the appointment. Diabetes pre-visit orders have been pended. Please sign the orders then route the encounter back to sender . Do not close the encounter. If there are other orders you would like performed prior to the visit, please add them to the pended orders then sign all the orders. I would ask that any orders entered by the [facility] Medicaid staff be associated with a diabetes diagnosis. You can use any diabetes diagnosis found on the problem list. Ana Lopez Community Health Worker Fatimah [facility] Health Net Plan O W [phone] F [phone] documented in this encounter Plan of Treatment Not on file documented as of this encounter Results * (ABNORMAL) LIPID PROFILE (01/22/2020 10:30 AM EDT) Cholesterol 177 0 - 200 mg/dL 01/22/2020 3:16 PM EDT [facility] TRIGLYCERIDES 375(H) 0 - 150 mg/dL 01/22/2020 3:16 PM EDT [facility] HDL CHOLESTEROL 30(L) >40 mg/dL 0 3:16 PM EDT [facility] LDL CALCULATED 72 0 - 100 mg/dL 01/22/2020 3:16 PM EDT [facility] TC-HDLC RATIO 5.9(H) 0 - 4.4 mg/dL 01/22/2020 3:16 PM EDT [facility] 01/22/2020 10:3 0 AM EDT 01/22/2020 10:32 AM EDT Jacob Sanders TRACK BROOM OPERATOR LAB [facility] documented in this encounter Visit Diagnoses Diagnosis Hyperlipidemia, unspecified hyperlipidemia type- Primary documented in this encounter Care Teams Shuttle Hand Relationship Specialty Start Date End Date Halie Sierra MD [address] [place] [address] PCP - General Internal Medicine 06/07/19 Madhavi Gloria MD [address] [place] [address] 75[address] Specialist Cardiology 03/21/24 documented as of this encounter
--- OUTSIDE RECORDS SUMMARY | 2025-07-06 12:03 | XMS_ITS | Encounter Summary ---
Author Organization [facility] Address [address] [place] [address] Care Team Providers Care Cloth Drier Name Role Phone Halie Sierra MD Primary Care Provider [phone] Madhavi Gloria MD Unavailable [phone] Encounter Details Date Type Department Care Team Description 09/11/2022 Telephone Adult Medicine [address] [phone] Halie Sierra MD [address] [place] [address] [phone] Social History Tobacco Use Types Packs/Day Years [...] on filedocumented in this encounter Care Teams Cloth Drier Relationship Specialty Start Date End Date Halie Sierra MD [address] [place] [address] PCP - General Internal Medicine 06/07/19 Madhavi Gloria MD [address] [place] [address] 35351 Specialist Cardiology 03/21/24 documented as of this encounter
--- OUTSIDE RECORDS SUMMARY | 2025-07-06 12:03 | XMS_ITS | Encounter Summary ---
Author Organization [facility] Address [address] [place] [address] Care Team Providers Care Offal Icer Poultry Name Role Phone Halie Sierra MD Primary Care Provider [phone] Madhavi Gloria MD Unavailable [phone] Encounter Details Date Type Department Care Team Description 08/02/2019 Hospital Medical Records [address] [place] [address] Claudia Bryant MD [address] [address] Social History Tobacco Use Types Packs/Day Years [...] on filedocumented in this encounter Care Teams Offal Icer Poultry Relationship Specialty Start Date End Date Halie Sierra MD [address] [place] [address] 220[address] PCP - General Internal Medicine 06/07/19 Madhavi Gloria MD [address] [place] [address] 62182 Specialist Cardiology 03/21/24 documented as of this encounter
--- OUTSIDE RECORDS SUMMARY | 2025-07-06 12:03 | XMS_ITS | Encounter Summary ---
Author Organization [facility] Address [address] [place] [address] Care Team Providers Care Engraver Wood Name Role Phone Ryann Richardson MD Primary Care Provider Un available Halie Sierra MD Primary Care Provider [phone] Madhavi Gloria MD Unavailable Encounter Details Date Type Department Care Team Description 04/07/2019 Orders Only Medical Records [address] [place] [address] Abstract, Provider Social History Tobacco Use Types [...] on filedocumented in this encounter Care Teams Engraver Wood Relationship Specialty Start Date End Date Ryann Richardson MD PCP - General Internal Medicine 05/30/1806/06 Halie Sierra MD [address] [place] [address] PCP - General Internal Medicine 06/07/19 Madhavi Gloria MD [address] [place] [address] Specialist Cardiology 03/21/24 documented as of this encounter
--- OUTSIDE RECORDS SUMMARY | 2025-07-06 12:03 | XMS_ITS | Encounter Summary ---
Author Organization [facility] Address [address] [place] [address] Care Team Providers Care Dials Supervisor Name Role Phone Halie Sierra MD Primary Care Provider [phone] Madhavi Gloria MD Unavailable Reason for Visit * Reason Onset Date Comments Surgery (Schedule) 02/02/2024 Encounter Details Date Type Department Care Team Description 02/02/2024 Telephone [facility] Medical [facility] [address] [address] Marcelino Cedeño MD [address] [place] [address] Surgery (Schedule) Social History Tobacco Use Types [...] on filedocumented in this encounter Care Teams Dials Supervisor Relationship Specialty Start Date End Date Halie Sierra MD [address] [place] [address] PCP - General Internal Medicine 06/07/19 Madhavi Gloria MD [address] [place] [address] Specialist Cardiology 03/21/24 documented as of this encounter
--- OUTSIDE RECORDS SUMMARY | 2025-07-06 12:03 | XMS_ITS | Encounter Summary ---
Author Organization [facility] Address [address] [place] [address] Care Team Providers Care Assistant Women'S Rowing Coach Name Role Phone Halie Sierra MD Primary Care Provider [phone] Madhavi Gloria MD Unavailable [phone] Reason for Visit * Reason Onset Date Comments pain, chest 01/14/2023 Encounter Details Date Type Department Care Team Description 01/14/2023 Pt. Non Urgent Medical Question Adult Medicine [address] [address] Cody Leal, PETROLEUM GEOLOGIST [address] [place] [address] Social History Tobacco Use Types Packs/Day Years [...] In the last 10 days, have haydee theodore been in contact with someone who was confirmed or suspected to have Coronavirus/COVID-19? No / Unsure 01/12/2023 10:01 AM EDT documented as of this encounter Miscellaneous Notes * Telephone Encounter - Natacha Aggarwal M.A. - 01/14/2023 11:02 AM EDTFrom: Ivan Donovan To: Keon Leal Sent: 01/14/2023 10:26 AM EDT Subject: Stress Good morning having some small chests pain just would like to address this with a visit if there anopening. I believe I???m just a little stressed. documented in this encounter Plan of Treatment Not on file documented as of this encounter Visit Diagnoses Not on filedocumented in this encounter Care Teams Assistant Women'S Rowing Coach Relationship Specialty Start Date End Date Halie Sierra MD [address] [place] [address] PCP - General Internal Medicine 06/07/19 Mahdavi Gloria MD [address] [place] [address] Specialist Cardiology 03/21/24 documented as of this encounter
--- OUTSIDE RECORDS SUMMARY | 2025-07-06 12:03 | XMS_ITS | Encounter Summary ---
Author Organization [facility] Address [address] [place] [address] Care Team Providers Care Bank Advisor Name Role Phone Halie Sierra MD Primary Care Provider [phone] Madhavi Gloria MD Unavailable [phone] Encounter Details Date Type Department Care Team Description 07/29/2022 Manufacturers Service Representative Report Medical Records [address] [place] [address] Beti Urias MD Social History Tobacco Use [...] on filedocumented in this encounter Care Teams Bank Advisor Relationship Specialty Start Date End Date Halie Sierra MD [address] [place] [address] PCP - General Internal Medicine 06/07/19 Madhavi Gloria MD [address] [place] [address] Specialist Cardiology 03/21/24 documented as of this encounter
--- OUTSIDE RECORDS SUMMARY | 2025-07-06 12:03 | XMS_ITS | Encounter Summary ---
Author Organization [facility] Address [address] [place] [address] Care Team Providers Care Military Communications Specialist Name Role Phone Ryann Richardson MD Primary Care Provider Un available Halie Sierra MD Primary Care Provider [phone] Madhavi Gloria MD Unavailable [phone] Encounter Details Date Type Department Care Team Description 02/21/2019 Hospital Medical Records [address] [place] [address] Erick Don PA-C 175 [facility] [address] [place] [address] Social History Tobacco Use Types Packs/Day Years [...] on filedocumented in this encounter Care Teams Military Communications Specialist Relationship Specialty Start Date End Date Ryann Richardson MD PCP - General Internal Medicine 05/30/1806/06 Halie Sierra MD [address] [place] [address] PCP - General Internal Medicine 06/07/19 Madhavi Gloria MD [address] [place] [address] Specialist Cardiology 03/21/24 documented as of this encounter
--- OUTSIDE RECORDS SUMMARY | 2025-07-06 12:03 | XMS_ITS | Encounter Summary ---
Author Organization [facility] Address [address] [place] [address] Care Team Providers Care Home Health Care Case Manager Name Role Phone Ryann Richardson MD Primary Care Provider Un available Halie Sierra MD Primary Care Provider [phone] Madhavi Gloria MD Unavailable [phone] Encounter Details Date Type Department Care Team Description 04/28/2019 PNO Controlled Substance Contract Medical Records [address] [place] [address] Abstract, Provider Social History Tobacco Use Types [...] on filedocumented in this encounter Care Teams Home Health Care Case Manager Relationship Specialty Start Date End Date Ryann Richardson MD PCP - General Internal Medicine 05/30/1806/06 Halie Sierra MD [address] [place] [address] PCP - General Internal Medicine 06/07/19 Madhavi Gloria MD [address] [place] [address] Specialist Cardiology 03/21/24 documented as of this encounter
--- OUTSIDE RECORDS SUMMARY | 2025-07-06 12:03 | XMS_ITS | Encounter Summary ---
Author Organization [facility] Address [address] [place] [address] Care Team Providers Care Hole Digger Name Role Phone Halie Sierra MD Primary Care Provider [phone] Madhavi Gloria MD Unavailable [phone] Encounter Details Date Type Department Care Team Description 03/03/2024 Forklift Material Handler Report Medical Records [address] [place] [address] Erick Jacobs MD Social History Tobacco Use [...] on filedocumented in this encounter Care Teams Hole Digger Relationship Specialty Start Date End Date Halie Sierra MD [address] [place] [address] PCP - General Internal Medicine 06/07/19 Madhavi Gloria MD [address] [place] [address] Specialist Cardiology 03/21/24 documented as of this encounter
--- OUTSIDE RECORDS SUMMARY | 2025-07-06 12:03 | XMS_ITS | Encounter Summary ---
Author Organization [facility] Address [address] [place] [address] Care Team Providers Care Computer Support Specialist Instructor Name Role Phone Halie Sierra MD Primary Care Provider [phone] Madhavi Gloria MD Unavailable [phone] Encounter Details Date Type Department Care Team Description 03/02/2023 Debate Director Report Medical Records [address] [place] [address] Ashvin Moy Social History Tobacco Use Types [...] on filedocumented in this encounter Care Teams Computer Support Specialist Instructor Relationship Specialty Start Date End Date Halie Sierra MD [address] [place] [address] PCP - General Internal Medicine 06/07/19 Madhavi Gloria MD [address] [place] [address] Specialist Cardiology 03/21/24 documented as of this encounter
--- OUTSIDE RECORDS SUMMARY | 2025-07-06 12:03 | XMS_ITS | Encounter Summary ---
Author Organization [facility] Address [address] [place] [address] Care Team Providers Care Program Support Assistant Name Role Phone Halie Sierra MD Primary Care Provider [phone] Madhavi Gloria MD Unavailable [phone] Reason for Visit * Reason Onset Date Comments Surgery (Schedule) 03/15/2024 Encounter Details Date Type Department Care Team Description 03/15/2024 Telephone [facility] [address] [address] Marcelino Cedeño MD [address] [place] [address] Surgery (Schedule) Social History Tobacco Use Types [...] for 03/22/24 @ 12:30 P2P - Case# [id number] 03/22/24 @ 12:30 Dr. Jose Sawant Thanks, Amber documented in this encounter Plan of Treatment Not on file documented as of this encounter Visit Diagnoses Not on filedocumented in this encounter Care Teams Program Support Assistant Relationship Specialty Start Date End Date Halie Sierra MD [address] [place] [address] PCP - General Internal Medicine 06/07/19 Madhavi Gloria MD [address] [place] [address] Specialist Cardiology 03/21/24 documented as of this encounter
--- OUTSIDE RECORDS SUMMARY | 2025-07-06 12:03 | XMS_ITS | Encounter Summary ---
Author Organization [facility] Address [address] [place] [address] Care Team Providers Care Olive Grower Name Role Phone Ryann Richardson MD Primary Care Provider Un available Halie Sierra MD Primary Care Provider Madhavi Gloria MD Unavailable [phone] Encounter Details Date Type Department Care Team Description 02/24/2019 Hospital Medical Records [address] [place] [address] Jose Manuel Henderson MD, PHD Social History [...] on filedocumented in this encounter Care Teams Olive Grower Relationship Specialty Start Date End Date Ryann Richardson MD PCP - General Internal Medicine 05/30/1806/06 Halie Sierra MD [address] [place] [address] PCP - General Internal Medicine 06/07/19 Madhavi Gloria MD [address] [place] [address] Specialist Cardiology 03/21/24 documented as of this encounter
--- OUTSIDE RECORDS SUMMARY | 2025-07-06 12:03 | XMS_ITS | Encounter Summary ---
Author Organization [facility] Address [address] [place] [address] Care Team Providers Care Wine Specialist Name Role Phone Halie Sierra MD Primary Care Provider [phone] Madhavi Gloria MD Unavailable [phone] Encounter Details Date Type Department Care Team Description 03/23/2024 Orders Only Medical Records [address] [place] [address] Social History Tobacco Use Types Packs/Day Years [...] encounter Results * OUTSIDE EYE EXAM (03/23/2024) [facility] PROCEDURES documented in this encounter Visit Diagnoses Not on filedocumented in this encounter Care Teams Wine Specialist Relationship Specialty Start Date End Date Halie Sierra MD [address] [place] [address] PCP - General Internal Medicine 06/07/19 Madhavi Gloria MD [address] [place] [address] Specialist Cardiology 03/21/24 documented as of this encounter
--- OUTSIDE RECORDS SUMMARY | 2025-07-06 12:03 | XMS_ITS | Encounter Summary ---
Author Organization [facility] Address [address] [place] [address] Care Team Providers Care Plywood Layup Line Core Layer Name Role Phone Halie Sierra MD Primary Care Provider [phone] Madhavi Gloria MD Unavailable [phone] Reason for Visit * Reason Onset Date Comments Faxed Order 02/25/2023 Authorization da te 11/15/2022-05/17/2023 Encounter Details Date Type Department Care Team Description 02/25/2023 Telephone Adult Medicine [address] [phone] Halie Sierra MD [address] [place] [address] [phone] Faxed Order (Authorization date 11/15/2022-05/17/2023) Social History Tobacco Use Types Packs/Day Years [...] encounter Miscellaneous Notes * Telephone Encounter - Julián Vivas - 02/25/2023 4:12 PM EDT Faxed orders from [facility], Authorization date 11/15/2022-05/17/2023, please sign, date and fax back to [phone] documented in this encounter Plan of Treatment Not on file documented as of this encounter Visit Diagnoses Not on filedocumented in this encounter Care Teams Plywood Layup Line Core Layer Relationship Specialty Start Date End Date Halie Sierra MD [address] [place] [address] PCP - General Internal Medicine 06/07/19 Madhavi Gloria MD [address] [place] [address] Specialist Cardiology 03/21/24 documented as of this encounter
--- OUTSIDE RECORDS SUMMARY | 2025-07-06 12:03 | XMS_ITS | Encounter Summary ---
Author Organization [facility] Address [address] [place] [address] Care Team Providers Care Business Services Intern Name Role Phone Halie Sierra MD Primary Care Provider [phone] Madhavi Gloria MD Unavailable [phone] Reason for Visit * Reason Onset Date Comments Surgery (Schedule) 03/29/2024 Encounter Details Date Type Department Care Team Description 03/29/2024 Telephone [facility] [address] [phone] Marcelino Cedeño MD [address] [place] [address] Surgery (Schedule) Social History Tobacco Use Types [...] * Telephone Encounter - Amber Cameron - 03/29/2024 10:29 AM EDT Thuan Ahmadi from [facility] called, she states she spoke with this patient, patient advised he had been taken naproxen for the last few days, that no one told him to stop. Just wanted to let you know Thanks, Amber documented in this encounter Plan of Treatment Not on file documented as of this encounter Visit Diagnoses Not on filedocumented in this encounter Care Teams Business Services Intern Relationship Specialty Start Date End Date Halie Sierra MD [address] [place] [address] PCP - General Internal Medicine 06/07/19 Madhavi Gloria MD [address] [place] [address] Specialist Cardiology 03/21/24 documented as of this encounter
--- OUTSIDE RECORDS SUMMARY | 2025-07-06 12:03 | XMS_ITS | Encounter Summary ---
Author Organization [facility] Address [address] [place] [address] Care Team Providers Care Audio Experience Expert Name Role Phone Halie Sierra MD Primary Care Provider [phone] Madhavi Gloria MD Unavailable [phone] Encounter Details Date Type Department Care Team Description 11/06/2019 [facility] Medical Records [address] [place] [address] Abstract, Provider Social History Tobacco Use Types [...] on filedocumented in this encounter Care Teams Audio Experience Expert Relationship Specialty Start Date End Date Halie Sierra MD [address] [place] [address] PCP - General Internal Medicine 06/07/19 Madhavi Gloria MD [address] [place] [address] 04683 Specialist Cardiology 03/21/24 documented as of this encounter
--- OUTSIDE RECORDS SUMMARY | 2025-07-06 12:03 | XMS_ITS | Clinical Summary ---
Author Organization [facility] [place] [address] Phone Care Team Providers Care Camera Systems Engineer Name Role Phone Halie Sierra MD Primary Care Provider Allergies Active Allergy Reactions Criticality Noted Date [...] week. 4 each 10/13/19 25 026 Active topiramate (TOPAMAX) 100 mg tablet Take 1 tablet (100 mg total) by mouth 1 (one) time each day. Prescribe By Neurologist. Dr. Carver 30 each 3 03/09/20 25 Active tamsulosin (FLOMAX) 0.4 mg 24 hr capsule Take 1 capsule (0.4 mg total) by mouth 1 (one) time each day. Prescribed by Er provider for kidney stone 03/04/20 25 Active naproxen (NAPROSYN) 500 mg tabletIndications: Migraine with aura and without status migrainosus, not intractable Take 1 tablet (500 mg total) by mouth 2 (two) times a day with meals. 90 each 1 05/28/20 25 Active erenumab-aooe (Aimovig Autoinjector) 140 mg/mL injectionIndicatio ns:Migraine with aura and without status migrainosus, not intractable Inject 1 mL (140 mg total) under the skin every 28 (twenty-eight) days. 1 mL 5 01/16/20 25 025 Active Problems Problem Noted Date Diagnosed Date [...] Encounters Date Type Department Care Team Description 05/29/2025 Telephone Adult Medicine [address] [phone] Yennifer Kearns [place] 05/25/2025 Telephone Adult Medicine [address] [phone] Halie Sierra MD 05/21/2025 11:30 AM EDT Office Visit Adult Medicine [address] [phone] Cody Leal NP Numbness and tingling in left hand (Primary Dx); Atypical chest pain; Neck pain; Migraine with aura and without status migrainosus, not intractable; Need for prophylactic vaccination and inoculation against influenza; Encounter for examination following treatment at hospital 05/21/2025 Telephone Adult Medicine [address] [phone] Cody Leal NP 05/16/2025 Telephone Adult Medicine [address] [phone] Halie Sierra MD 05/14/2025 Telephone Adult Medicine [address] [phone] Halie Sierra MD 05/09/2025 9:35 AM EDT - 05/09/2025 11:59 PM EDT Hospital Encounter [address] [phone] Chronic low back pain without sciatica, unspecified back pain laterality Discharge Disposition: Home or Self Care 05/09/2025 9:00 AM EDT Office Visit Adult Medicine [address] [phone] Halie Sierra MD Chronic low back pain without sciatica, unspecified back pain laterality (Primary Dx); Type 2 diabetes mellitus without complication, without long-term current use of insulin ([facility] V24, [facility] V28); Mixed hyperlipidemia 05/07/2025 Telephone Adult Medicine [address] [phone] Halie Sierra MD from Last 3 Months Immunizations Immunization Administration Dates Next Due Influenza Quadravalent, MDCK , 0.5ml, preservative free (Flucelvax) 6mo and older 05/25/2022,05/28/2021 Influenza trivalent, MDCK, 0 .5mL, preservative free (Flucelvax) 6mo and older 05/21/2025,10/12/2024 Pneumococcal conjugate 20 va lent (Prevnar 20, [...] of cervical spine Diabetes mellitus ([facility] V 24, [facility] V28) Migraines Colon polyp Family History [...] care for your loved ones. For example, attendant children's institution or elderly care for an older adult? [...] Sign Reading Time Taken Comments Blood Pressure 116/87 05/21/2025 11:12 AM EDT Pulse 70 05/21/2025 11:12 AM EDT Temperature 36.7 C (98.1 F) 05/21/2025 11:12 AM EDT Respiratory Rate 16 05/21/2025 11:12 AM EDT Oxygen Saturation 98% 05/09/2025 9:14 AM EDT Inhaled Oxygen Concentration - - Weight 81.2 kg (179 lb) 05/21/2025 11:12 AM EDT Height 180.3 cm (5' 11 ) 05/21/2025 11:12 AM EDT Body Mass Index 24.97 05/21/2025 11:12 AM EDT Plan of Treatment Upcoming Encounters Date Type Department Care Team (Late st Contact Info) Description 07/23/2025 10:00 AM EST Office Visit [facility] [address] [place] [address] Mehul Kumar MD [address] [place] [address] 07/27/2025 10:30 AM EST Office Visit Adult Medicine [facility] [address] [place] [phone] Halie Sierar MD [address] [place] [address] Health Maintenance Due Date Last Done Comments HPV Vaccines (1 - 3-dose SCDM series) 2007 Medicare Annual Wellness Visit 07/25/2022 Diabetes: Annual Retina Eye Exam 03/23/2025 03/23/2024 Diabetes: Blood Sugar Control Test (HGBA1C) 09/14/2025 [...] Completed 10/12/2024 Hepatitis C Screening Completed 10/12/2024 Influenza Vaccine Completed 05/21/2025, , 05/25/2022, Additional history exists HIB Vaccines Aged Out No longer eligi [...] Procedure Name Priority Date/Time Associated Diagnosis Comments EXTERNAL XRAY REPORT 05/14/2025 EXTERNAL XRAY REPORT 05/14/2025 XR LUMBAR SPINE 4+ VIEWS Routine 05/09/2025 10:03 AM EDT Chronic low back pain without sciatica, unspecified back pain laterality BASIC METABOLIC PANEL Routine 03/14/2025 10:11 AM EDT Pain of right humerus Chronic pain syndrome Vitamin D deficiency Prediabetes HEMOGLOBIN A1C Routine 03/14/2025 10:11 AM EDT Pain of right humerus Chronic pain syndrome Vitamin D deficiency Prediabetes LIPID PANEL WITH REFLEX TO DIRECT LDL Routine 03/14/2025 10:11 AM EDT Encounter for screening for cardiovascular disorders HEPATITIS C ANTIBODY Routine 10/12/2024 9:36 AM EST Migraine with aura and without status migrainosus, not intractable Need for tetanus, diphtheria, and acellular pertussis (Tdap) vaccine Need for prophylactic vaccination and inoculation against influenza Need for hepatitis C screening test Type 2 diabetes mellitus without complication, without long-term current use of insulin ([facility] V24, [facility] V28) Mixed hyperlipidemia HIV 1, 2 [...] long-term current use of insulin ([facility] V24, [facility] V28) Mixed hyperlipidemia MICROALBUMIN CREATININE URINE RATIO Routine 10/12/2024 9:36 AM EST Migraine with aura and without status migrainosus, not intractable Need for tetanus, diphtheria, and acellular pertussis (Tdap) vaccine Need for prophylactic vaccination and inoculation against influenza Need for hepatitis C screening test Type 2 diabetes mellitus without complication, without long-term current use of insulin ([facility] V24, [facility] V28) Mixed hyperlipidemia COLONOSCOPY Routine 06/27/2024 3:44 PM EST Hx of colonic polyps HM DIABETES EYE EXAM Routine 03/23/2024 from Last 3 Months or Most Recently Relevant to Health Maintenance Results * External Xray Report (05/14/2025) Only the most recent of2 resultswithin the time period is included. Anatomical Region Laterality Modality Radiographic Michelle ging us Provider [facility] IMG XR PROCEDURES Final Result * XR Lumbar Spine 4+ Views (05/09/2025 [...] Signed Date: 05/10/2025 09:44 ET Workstation ID: [id number] Transcribed By: Self Edit Transcribed Date: 05/10/2025 [...] Signed Date: 05/10/2025 09:44 ET Workstation ID: [id number] Transcribed By: Self Edit Transcribed Date: 05/10/2025 09:43 ET Halie Sierra MD IMG XR PROCEDURES Final Result * Lipid panel with reflex to direct LDL (03/14/2025 10:11 AM EDT) Cholesterol 120 0 - 200 mg/dL LAB CHEMISTRY METHOD 03/14/2025 12:54 PM EDT [facility] Triglycerides 135 0 - 150 mg/dL LAB CHEMISTRY METHOD 03/14/2025 12:54 PM EDT [facility] HDL 45 >=40 mg/dL LAB CHEMISTRY METHOD 03/14/2025 12:54 PM EDT [facility] LDL Calculated 48 0 - 100 mg/dL LAB CHEMISTRY METHOD 03/14/2025 12:54 PM EDT [facility] VLDL Cholesterol Baljit 27 mg/dL LAB CHEMISTRY METHOD 03/14/2025 12:54 PM EDT [facility] Non HDL Chol. (LDL+VLDL) 75 <145 mg/dL LAB CHEMISTRY METHOD 03/14/2025 12:54 PM EDT [facility] Chol/HDL Ratio 2.7 0.0 - 4.4 LAB CHEMISTRY METHOD 03/14/2025 12:54 PM EDT [facility] Blood Venous blood specimen / Unknown Venipuncture / Unknown 03/14/2025 10:11 AM EDT 03/14/2025 10:11 AM EDT Cody Leal MILL ATTENDANT LAB BLOOD ORDERABLES Final R esult Performing Organization Address City/[facility]/ZIP Co de Phone Number [facility] [address] [place] [address], [place] [phone] * Hemoglobin A1c (03/14/2025 10:11 AM EDT) Hemoglobin A1C 5.9 <6.5 % LAB CHEMISTRY METHOD 03/14/2025 1:58 PM EDT [facility] Mean Bld Glu Estim. 123 mg/dL LAB CHEMISTRY METHOD 03/14/2025 1:58 PM EDT [facility] Blood Venous blood specimen / Unknown Venipuncture / Unknown 03/14/2025 10:11 AM EDT 03/14/2025 10:11 AM EDT Cody Leal MILL ATTENDANT LAB BLOOD ORDERABLES Final R esult [facility] [address] [place] [address], [place] [phone] * (ABNORMAL) Basic metabolic panel (03/14/2025 10:11 AM EDT) Sodium 139 133 - 145 mmol/L LAB CHEMISTRY METHOD 03/14/2025 12:54 PM [facility] Potassium 3.5 3.5 - 5.5 mmol/L LAB CHEMISTRY METHOD 03/14/2025 12:54 PM [facility] Chloride 109 96 - 110 mmol/L LAB CHEMISTRY METHOD 03/14/2025 12:54 PM [facility] CO2 25 21 - 32 mmol/L LAB CHEMISTRY METHOD 03/14/2025 12:54 PM [facility] Anion Gap 5 3 - 11 LAB CHEMISTRY METHOD 03/14/2025 12:54 PM [facility] Glucose 164(H) 70 - 100 mg/dL LAB CHEMISTRY METHOD 03/14/2025 12:54 PM [facility] BUN 9 5 - 25 mg/dL LAB CHEMISTRY METHOD 03/14/2025 12:54 PM [facility] Creatinine 1.12 0.70 - 1.30 mg/dL LAB CHEMISTRY METHOD 03/14/2025 12:54 PM [facility] eGFR 83 >=60 mL/min/1. 73m2 LAB CHEMISTRY METHOD 03/14/2025 12:54 PM [facility] Comment:Calculation based on the Chronic Kidney Disease Epidemiology Collaboration (CKD-EPI) equation refit without adjustment for race. BUN/Creatinine Ratio 8.0 LAB CHEMISTRY METHOD 03/14/2025 12:54 PM [facility] Calcium 9.2 8.5 - 10.5 mg/dL LAB CHEMISTRY METHOD 03/14/2025 12:54 PM [facility] Blood Venous blood specimen / Unknown Venipuncture / Unknown 03/14/2025 10:11 AM EDT 03/14/2025 10:11 AM EDT us Cody Leal NP LAB BLOOD ORDERABLES Final R esult [facility] [address] [place] [address], [place] [phone] * Hepatitis C antibody (10/12/2024 9:36 AM EST) [facility] Hepatitis C Antibody Negative Negative LAB CHEMISTRY METHOD 10/12/2024 4:46 PM EST [facility] Blood Venous blood specimen / Unknown Venipuncture / Unknown 10/12/2024 9:36 AM EST 10/12/2024 9:36 AM EST Cody Leal MILL ATTENDANT LAB BLOOD ORDERABLES Final R esult Performing Organization Address [facility]/ZIP Co de Phone Number [facility] [address] [place] [address], [place] [phone] * HIV 1,2 antibody, p24 antigen with reflex to differentiation (10/12/2024 9:36 AM EST) [facility] HIV Combo AB/AG Negative Negative LAB CHEMISTRY METHOD 10/12/2024 4:47 PM EST [facility] Blood Venous blood specimen / Unknown Venipuncture / Unknown 10/12/2024 9:36 AM EST 10/12/2024 9:36 AM EST Narrative [facility] - 10/12/2024 4:47 PM EST This assay is a 4th generation assay allowing for earlier detection of HIV infection by detecting the presence of the HIV-1 p24 antigen as well as the traditional antibodies to HIV type 1 (including group O) and type 2. Use of a 4th generation assay is the current CDC recommendation for HIV screening. us Cody Leal MILL ATTENDANT LAB BLOOD ORDERABLES Final R esult Performing Organization Address [facility]/ZIP Co de Phone Number [facility] [address] [place] [address], [place] [phone] * Microalbumin creatinine urine ratio (10/12/2024 9:36 AM EST) [facility] Creatinine, Urine 323.0 mg/dL LAB CHEMISTRY METHOD 10/12/2024 2:32 PM EST [facility] Microalb, Ur 25.9 0.0 - 29.0 mg/L LAB CHEMISTRY METHOD 10/12/2024 2:32 PM EST [facility] Microalb/Creat Ratio 8 <30 mg/g creat LAB CHEMISTRY METHOD 10/12/2024 2:32 PM EST [facility] Urine Urine specimen obtained by clean catch procedure / Unknown Non-blood Collection / Unknown 10/12/2024 9:36 AM EST 10/12/2024 9:36 AM EST us Cody Leal MILL ATTENDANT LAB URINE ORDERABLES Final R esult [facility] [address] [place] [address], * COLONOSCOPY Anesthesia - MAC; [facility] ENDOSCOPY (06/27/2024 3:44 PM EST) Anatomical Region Laterality Modality Other 06/27/2024 3:17 PM EST Narrative 06/27/2024 3:45 PM EST [facility] Patient Name: Ivan Cueva Procedure Date: [...] K64.0, First degree hemorrhoids CPT copyright 2020 [employer]. All rights reserved. The codes documented in this report are preliminary and upon physician coder review may be revised to meet current compliance requirements. Scott Frederick MD Scott Frederick MD 06/27/2024 3:45:09 PM This report has been signed electronically.Scott Frederick MD Number of Addenda: 0 Note Initiated On: 06/27/2024 3:17 PM Scope In: Scope Out: Endoscopy Department at [facility] - [address] [place] [phone] Procedure Note Scott Frederick MD - 06/27/2024 [facility] GI Patient Name: Ivan Cueva Procedure Date: [...] K64.0, First degree hemorrhoids CPT copyright 2020 [employer]. All rights reserved. The codes documented in this report are preliminary and upon physician coder reviewmay be revised to meet current compliance requirements. Scott Frederick MD Scott Frederick MD 06/27/2024 3:45:09 PM This report has been signed electronically.Scott Frederick MD Number of Addenda: 0 Note Initiated On: 06/27/2024 3:17 PM Scope In: Scope Out: Endoscopy Department at [address] [phone] Scott Frederick MD GI~PROCEDURE ORDERABLES Final Re sult * Diabetes Eye Exam (03/23/2024) Diabetes: Annual Retina Eye Exam abstracted Historical Provider HEALTH MAINTENANCE Final Result from Last 3 Months or Most Recently Relevant to Health Maintenance Insurance [employer] MED[employer]ARE [employer]VANTAGE MEDICAID - [place] COMMERCIAL GENERIC Care Teams Camera Systems Engineer Relationship Specialty Start Date End Date Halie Sierra MD [address] [place] [id number] PCP - General Internal Medicine 06/07/19
--- OUTSIDE RECORDS SUMMARY | 2025-07-06 12:03 | XMS_ITS | Encounter Summary ---
Author Organization [facility] Address [address] [place] [address] Care Team Providers Care Plumbing Service Technician Name Role Phone Halie Sierra MD Primary Care Provider [phone] Madhavi Gloria MD Unavailable [phone] Encounter Details Date Type Department Care Team Description 01/01/2023 Coffee Shop Manager Report Medical Records [address] [place] [phone] Avila Cervantes PA-C Social History Tobacco Use [...] on filedocumented in this encounter Care Teams Plumbing Service Technician Relationship Specialty Start Date End Date Halie Sierra MD [address] [place] [address] PCP - General Internal Medicine 06/07/19 Madhavi Gloria MD [address] [place] [phone] Specialist Cardiology 03/21/24 documented as of this encounter
--- OUTSIDE RECORDS SUMMARY | 2025-07-06 12:03 | XMS_ITS | Encounter Summary ---
Author Organization [facility] Address [address] [place] [address] Care Team Providers Care Night Assistant Name Role Phone Ryann Richardson MD Primary Care Provider Un available Halie Sierra MD Primary Care Provider [phone] Madhavi Gloria MD Unavailable [phone] Encounter Details Date Type Department Care Team Description 06/21/2018 Release of Information Medical Records [address] [place] [address] Abstract, Provider Social History Tobacco Use Types [...] on filedocumented in this encounter Care Teams Night Assistant Relationship Specialty Start Date End Date Ryann Richardson MD PCP - General Internal Medicine 05/30/1806/06 Halie Sierra MD [address] [place] [id number] PCP - General Internal Medicine 06/07/19 Madhavi Gloria MD [address] [place] [phone] Specialist Cardiology 03/21/24 documented as of this encounter
== END 2025-07-06 11:39 | disposition home or self-care (01) ==
LOC: HO.HPHYS 11:11
PROVIDERS: PCP Internal Medicine; Visit Provider Physical Medicine & Rehabilitation
DX: M54.16 Radiculopathy, lumbar region (principal)
CPT/HCPCS: 64483

== ENCOUNTER 2025-07-06 11:11 | Outpatient (REF) | payer MEDICARE, MEDICAID, SELFPAY | END 2025-07-06 11:12 | disposition home or self-care (01) | LOC: HO.HPHYSR 11:11 | PROVIDERS: PCP Internal Medicine; Visit Provider Physical Medicine & Rehabilitation | DX: M54.16 Radiculopathy, lumbar region (principal) | CPT/HCPCS: 64483; J2003; J3301; Q9967 ==

== ENCOUNTER 2025-08-02 10:05 | Outpatient (AMB) | payer MEDICARE, MEDICAID, SELFPAY ==
[2025-08-02 10:08] VITALS: BMI 25.7
--- NOTE | 2025-08-02 10:08 | A.PHYSOV ---
Vital Signs 08/02/25 10:08 Height 5 ft 11 in Weight 184 lb BMI 25.7 Intake Visit Reasons: F/U after injection 07/06/2025 Intake Note: Patient is a 45 year old male here today for follow up after 07/06/25 Right L5 TFE. Magazine Repairer Required: No Allergies No Known Allergies Allergy (Verified 08/02/25 10:10) HPI Comments Details: Mr. Donovan is a 45-year-old male seen in evaluation today for lumbar radiculitis the right lower extremity. Patient underwent right L5 TFESI 07/06/2025. He reports 80% reduction of his pain. He is able to stand for long periods of time and ambulate longer distances. He is overall very happy with his results. Procedure: Right L5 TFESI 07/06/2025 80% reduction of his pain [facility] Medical History (Updated 07/06/25 @ 11:23 by Osiel Green DO) Lumbar radiculitis Surgical History History of surgery on lower extremity H/O shoulder surgery History of neck surgery History of back surgery Social History Household Members: Spouse Alcohol intake: current Patient Tobacco Use Status: Current everyday Tobacco user Substance Use Type: Marijuana Current occupational status: unemployed Review of Systems Narrative Lumbar radiculopathy right lower extremity. No incontinence, saddle anesthesia or urinary retention. Physical Exam Exam Exam: Lumbar Spine: Examination of his lumbar spine, there is no visible swelling or deformity. He is tender to lower lumbar facets. He is otherwise nontender. Full range of motion of his lumbar spine. He has less pain with facet loading. Special Tests: Lhermittes sign was negative Heel Toe walk is normal Left straight leg raise: Negative Right straight leg raise: Negative Special tests Les test is negative Ganslen's test is negative SI Joint compression test negative Roverto test negative Piriformis stretch is negative Lower Extremities: Full range of motion bilateral lower extremities. No calf pain or edema. Neuro: Sensation: Intact to lower extremities bilaterally Strength L2 (Psoas): 5/5 on the left and 5/5 on the right. L3 (Quads): 5/5 on the left and 5/5 on the right. L4 (Ant tibialis): 5/5 on the left and 5/5 on the right. L5 (EHL) 5/5 on the left and 5/5 on the right. S1 (Gastroc): 5/5 on the left and 5/5 on the right. DTR L4: (Patellar) Left 0 Right 0 S1: (Achilles) Left 0 Right 0 Babinski Downgoing No pathologic clonus. No involuntary movement. Vital Signs: BMI result Body Mass Index 25.7 Assessment & Plan Assessment & Plan (1) Lumbar radiculitis: Code(s): M54.16 - Radiculopathy, lumbar region Category: Medical Plan Mr. Donovan is a 45-year-old male seen in evaluation today for lumbar radiculitis right lower extremity. Patient responded very well to right L5 TFESI. We will continue his home exercise plan and medications as prescribed. Follow-up with our office as needed. Thank you for allowing me to participate in the care of your patient. Coding Level of Care Code Est Pt Level 3 (59068) Diagnoses Lumbar radiculitis M54.16
--- OUTSIDE RECORDS SUMMARY | 2025-08-02 12:24 | XMS_ITS | Clinical Summary ---
Author Organization [facility] Address [address] [place] [address] Care Team Providers Care Systems Programmer Analyst Name Role Phone Halie Sierra Primary Care Provider [phone] Allergies Active Allergy Reactions Criticality Noted Date [...] [facility] Care Teams Systems Programmer Analyst Relationship Specialty Start Date End Date Halie Sierra PCP - General Internal Medicine 01/26/23
--- OUTSIDE RECORDS SUMMARY | 2025-08-02 12:24 | XMS_ITS | Clinical Summary ---
Author Organization [facility] [place] [address] Phone Care Team Providers Care Bmw Service Technician Name Role Phone Halie Sierra MD Primary Care Provider [phone] Allergies Active Allergy Reactions Criticality Noted Date Comments Coconut GI intolerance 06/21/2024 Sleep walking Mushroom 12/31/2023 Pollens Extract 09/19/2024 Medications rimegepant (NURTEC) 75 mg dispersible tabletIndications :Migraine with aura and without status migrainosus, not intractable Dissolve 1 tablet (75 mg total) on top of the tongue 1 (one) time each day if needed for migraine. Prescribe by Dr. Burrows, Neurologist Active naproxen (NAPROSYN) 500 mg tabletIndications :Migraine with aura and without status migrainosus, not intractable Take 1 tablet (500 mg total) by mouth 2 (two) times a day with meals. 90 each 1 025 Active atorvastatin (LIPITOR) 10 mg tabletIndications :Type 2 diabetes mellitus without complication, without long-term current use of insulin (CMS/HCC V24, CMS/HCC V28),Mixed hyperlipidemia TAKE 1 TABLET BY MOUTH 1 TIME EACH DAY. 90 tablet 1 025 Active topiramate (TOPAMAX) 100 mg tablet TAKE 1 TABLET BY MOUTH 1 TIME EACH DAY. PRESCRIBE BY NEUROLOGIST. DR. BURROWS 30 tablet 3 025 Active erenumab-aooe (Aimovig Autoinjector) 140 mg/mL injectionIndicati ons:Migraine with aura and without status migrainosus, not intractable INJECT 1 ML (140 MG TOTAL) UNDER THE SKIN EVERY 28 DAYS 1 mL 5 025 Active atorvastatin (LIPITOR) 10 mg tabletIndications :Type 2 diabetes mellitus without complication, without long-term current use of insulin ([facility] V24, [facility] V28),Mixed hyperlipidemia Take 1 tablet (10 mg total) by mouth 1 (one) time each day. 90 tablet 1 025 2024 Discontinued ergocalciferol (VITAMIN D-2) 1,250 mcg (50,000 unit) capsule Take 1 capsule (50,000 Units total) by mouth 1 (one) time per week. 4 each 11 025 2024 Discontinued(T herapy completed) erenumab-aooe (Aimovig Autoinjector) 140 mg/mL injectionIndicati ons:Migraine with aura and without status migrainosus, not intractable Inject 1 mL (140 mg total) under the skin every 28 (twenty-eight) days. 1 mL 5 025 2024 Discontinued topiramate (TOPAMAX) 100 mg tablet Take 1 tablet (100 mg total) by mouth 1 (one) time each day. Prescribe By Neurologist. Dr. Burrows 30 each 3 025 2024 Discontinued tamsulosin (FLOMAX) 0.4 mg 24 hr capsule Take 1 capsule (0.4 mg total) by mouth 1 (one) time each day. Prescribed by Er provider for kidney stone 025 2024 Discontinued(T herapy completed) Active Problems Problem Noted Date Diagnosed Date [...] A1c; Future DM2 (diabetes mellitus, type 2) 09/11/2018 Assessment & Plan (10/12/2024 5:21 PM [...] Encounters Date Type Department Care Team Description 07/26/2025 Telephone Adult Medicine [address] [phone] Julián Vivas MA 07/25/2025 10:30 AM EST Office Visit Adult Medicine [address] [phone] Cody Leal, SHELLEY Numbness and tingling in left hand (Primary Dx); Carpal tunnel syndrome of right wrist 07/24/2025 Telephone Adult Medicine [address] [phone] Dora Rojas [place] 07/23/2025 10:00 AM EST Office Visit [facility] [address] [place] [address] Mehul Kumar MD Migraine with aura and without status migrainosus, not intractable (Primary Dx); Vitamin D deficiency, unspecified; Vitamin B12 deficiency 05/29/2025 Telephone Adult Medicine [address] [phone] Yennifer Kearns [place] 05/25/2025 Telephone Adult [address] [phone] Halie Sierra MD 05/21/2025 11:30 AM EDT Office Visit [address] [phone] Cody Leal NP Numbness and tingling in left hand (Primary Dx); Atypical chest pain; Neck pain; Migraine with aura and without status migrainosus, not intractable; Need for prophylactic vaccination and inoculation against influenza; Encounter for examination following treatment at hospital 05/21/2025 Telephone Adult [address] [phone] Cody Leal NP 05/16/[address] [phone] Halie Sierra MD 05/14/[address] [phone] Halie Sierra MD 05/09/2025 9:35 AM EDT - 05/09/2025 11:59 PM EDT Hospital Encounter [address] [phone] Chronic low back pain without sciatica, unspecified back pain laterality Discharge Disposition: Home or Self Care 05/09/2025 9:00 AM EDT Office Visit Adult [address] [place] [phone] Halie Sierra MD Chronic low back pain without sciatica, unspecified back pain laterality (Primary Dx); Type 2 diabetes mellitus without complication, without long-term current use of insulin ([facility] V24, [facility] V28); Mixed hyperlipidemia 05/07/2025 Telephone Adult Medicine [address] [phone] Halie Sierra MD from Last 3 Months [...] of fusion of cervical spine Diabetes mellitus ([facility] V 24, [facility] V28) Migraines Colon polyp Family [...] for your loved ones. For example, child psychometrist or elderly care for an older adult? [...] Orientation Straight 06/25/2024 1: 08 PM EST Last Filed Vital Signs Vital Sign Reading Time Taken Comments Blood Pressure 116/80 07/25/2025 10:29 AM EST Pulse 67 07/25/2025 10:29 AM EST Temperature 36.3 C (97.3 F) 07/25/2025 10:29 AM EST Respiratory Rate 16 05/21/2025 11:12 AM EDT Oxygen Saturation 100% 07/25/2025 10:29 AM EST Inhaled Oxygen Concentration - - Weight 82.6 kg (182 lb) 07/25/2025 10:29 AM EST Height 180.3 cm (5' 11 ) 07/25/2025 10:29 AM EST Body Mass Index 25.38 07/25/2025 10:29 AM EST Plan of Treatment Upcoming Encounters Date Type Department Care Team (Late st Contact Info) Description 09/11/2025 9:00 AM EST Office Visit Adult Medicine [facility] [address] [place], [place] [phone] Cody Leal NP [address] [place], [place] 01/15/2026 9:30 AM EDT Office Visit [address] [place] [address] Isis Mullins, LUCIANO [address] [place] [address] Health Maintenance Due Date Last Done Comments [...] complication, without long-term current use of insulin ([facility] V24, [facility] V28) Mixed hyperlipidemia HIV 1, [...] complication, without long-term current use of insulin ([facility] V24, [facility] V28) Mixed hyperlipidemia MICROALBUMIN CREATININE URINE RATIO Routine 10/12/2024 9:36 AM EST Migraine with aura and without status migrainosus, not intractable Need for tetanus, diphtheria, and acellular pertussis (Tdap) vaccine Need for prophylactic vaccination and inoculation against influenza Need for hepatitis C screening test Type 2 diabetes mellitus without complication, without long-term current use of insulin ([facility] V24, [facility] V28) Mixed hyperlipidemia COLONOSCOPY Routine 06/27/2024 3:44 PM EST Hx of colonic polyps HM DIABETES EYE EXAM Routine 03/23/2024 from Last 3 Months or Most Recently Relevant to Health Maintenance Results * External Xray Report (05/14/2025) Only the most recent of2 resultswithin the time period is included. Anatomical Region Laterality Modality Radiographic Michelle ging Provider [facility] IMG XR PROCEDURES Final [...] Signed Date: 05/10/2025 09:44 ET Workstation ID: [id number] Transcribed By: Self Edit Transcribed Date: 05/10/2025 [...] Signed Date: 05/10/2025 09:44 ET Workstation ID: [id number] Transcribed By: Self Edit Transcribed Date: 05/10/2025 09:43 ET Halie Sierra MD IMG XR PROCEDURES Final Result * Lipid panel with reflex to direct LDL (03/14/2025 10:11 AM EDT) Cholesterol 120 0 - 200 mg/dL LAB CHEMISTRY METHOD 03/14/2025 12:54 PM [facility] Triglycerides 135 0 - 150 mg/dL LAB CHEMISTRY METHOD 03/14/2025 12:54 PM [facility] HDL 45 >=40 mg/dL LAB CHEMISTRY METHOD 03/14/2025 12:54 PM T [facility] LDL Calculated 48 0 - 100 mg/dL LAB CHEMISTRY METHOD 03/14[facility]2025 12:[facility] VLDL Cholesterol Baljit 27 mg/dL LAB CHEMISTRY METHOD 03/14/2025 12:54 PM [facility] Non HDL Chol. (LDL+VLDL) 75 <145 mg/dL LAB CHEMISTRY METHOD 03/14/2025 12:54 [facility] Chol/HDL Ratio 2.7 0.0 - 4.4 LAB CHEMISTRY METHOD 03/14/2025 12:54 PM EDT [facility] Blood Venous blood specimen / Unknown Venipuncture / Unknown 03/14/2025 10:11 AM EDT 03/14/2025 10:11 AM EDT Cody Leal DRY WALL INSTALLER LAB BLOOD ORDERABLES Final R esult Performing Organization Address [facility]/ZIP Co de Phone Number [facility] [address] [place] [address], [place] [phone] * Hemoglobin A1c (03/14/2025 10:11 AM EDT) Pathologist [facility] [place] Hemoglobin A1C 5.9 <6.5 % LAB CHEMISTRY METHOD 03/14/2025 1:58 PM EDT [facility] Mean Bld Glu Estim. 123 mg/dL LAB CHEMISTRY METHOD 03/14/2025 1:58 PM EDT [facility] Blood Venous blood specimen / Unknown Venipuncture / Unknown 03/14/2025 10:11 AM EDT 03/14/2025 10:11 AM EDT Cody Leal DRY WALL INSTALLER LAB BLOOD ORDERABLES Final R esult Performing Organization Address [facility] de Phone Number [facility] [address] [place] [address], [place] [phone] * (ABNORMAL) Basic metabolic panel (03/14/2025 10:11 AM EDT) Sodium 139 133 - 145 mmol/L LAB CHEMISTRY METHOD 03/14/2025 12:54 PM EDT [facility] Potassium 3.5 3.5 - 5.5 mmol/L LAB CHEMISTRY METHOD 03/14/2025 12:54 PM EDT [facility] Chloride 109 96 - 110 mmol/L LAB CHEMISTRY METHOD 03/14/2025 12:54 [facility] CO2 25 21 - 32 mmol/L LAB CHEMISTRY METHOD 03/14/2025 12:54 PM [facility] Anion Gap 5 3 - 11 LAB CHEMISTRY METHOD 03/14/2025 12:54 PM [facility] Glucose 164(H) 70 - 100 mg/dL LAB CHEMISTRY METHOD 03/14/2025 12:54 PM [facility] BUN 9 5 - 25 mg/dL LAB CHEMISTRY METHOD 03/14/2025 12:54 PM [facility] Creatinine 1.12 0.70 - 1.30 mg/dL LAB CHEMISTRY METHOD 03/14/2025 12:54 PM [facility] eGFR 83 >=60 mL/min/1. 73m2 LAB CHEMISTRY METHOD 03/14/2025 12:54 PM [facility] Comment:Calculation based on the Chronic Kidney Disease Epidemiology Collaboration (CKD-EPI) equation refit without adjustment for race. BUN/Creatinine Ratio 8.0 LAB CHEMISTRY METHOD 03/14/2025 12:54 PM [facility] Calcium 9.2 8.5 - 10.5 mg/dL LAB CHEMISTRY METHOD 03/14/2025 12:54 PM [facility] Blood Venous blood specimen / Unknown Venipuncture / Unknown 03/14/2025 10:11 AM EDT 03/14/2025 10:11 AM EDT us Cody Leal DRY WALL INSTALLER LAB BLOOD ORDERABLES Final R esult [facility] [address] [place] [address], * Hepatitis C antibody (10/12/2024 9:36 AM EST) Hepatitis C Antibody Negative Negative LAB CHEMISTRY METHOD 10/12/2024 4:46 PM EST [facility] Blood Venous blood specimen / Unknown Venipuncture / Unknown 10/12/2024 9:36 AM EST 10/12/2024 9:36 AM EST Cody Leal DRY WALL INSTALLER LAB BLOOD ORDERABLES Final R esult Performing Organization Address [facility] Co de Phone Number [facility] [address] [place] [address], * HIV 1,2 antibody, p24 antigen with reflex to differentiation (10/12/2024 9:36 AM EST) HIV Combo AB/AG Negative Negative LAB CHEMISTRY METHOD 10/12/2024 4:47 PM EST [facility] Blood Venous blood specimen / Unknown Venipuncture / Unknown 10/12/2024 9:36 AM EST 10/12/2024 9:36 AM EST Narrative [facility] - 10/12/2024 4:47 PM EST This assay is a 4th generation assay allowing for earlier detection of HIV infection by detecting the presence of the HIV-1 p24 antigen as well as the traditional antibodies to HIV type 1 (including group O) and type 2. Use of a 4th generation assay is the current CDC recommendation for HIV screening. Cody Leal DRY WALL INSTALLER LAB BLOOD ORDERABLES Final R esult Performing Organization Address [facility] de Phone Number [facility] [address] [place] [address], [place] [phone] * Microalbumin creatinine urine ratio (10/12/2024 9:36 AM EST) Creatinine, Urine 323.0 mg/dL LAB CHEMISTRY METHOD 10/12/2024 2:32 PM EST [facility] Microalb, Ur 25.9 0.0 - 29.0 mg/L LAB CHEMISTRY METHOD 10/12/2024 2:32 PM EST [facility] Microalb/Creat Ratio 8 <30 mg/g creat LAB CHEMISTRY METHOD 10/12/2024 2:32 PM EST [facility] Urine Urine specimen obtained by clean catch procedure / Unknown Non-blood Collection / Unknown 10/12/2024 9:36 AM EST 10/12/2024 9:36 AM EST us Cody Leal DRY WALL INSTALLER LAB URINE ORDERABLES Final R esult [facility] [address] [place] [address], [place] [phone] * COLONOSCOPY Anesthesia - MAC; [facility] ENDOSCOPY (06/27/2024 3:44 PM EST) Anatomical Region Laterality Modality Other 06/27/2024 3:17 PM EST Narrative 06/27/2024 3:[address] [facility] GI Patient Name: Ivan Cueva Procedure Date: [...] K64.0, First degree hemorrhoids CPT copyright 2020 [employer]. All rights reserved. The codes documented in this report are preliminary and upon starch mangle tender review may be revised to meet current compliance requirements. Scott Frederick MD Scott Frederick MD 06/27/2024 3:45:09 PM This report has been signed electronically.Scott Frederick MD Number of Addenda: 0 Note Initiated On: 06/27/2024 3:17 PM Scope In: Scope Out: Endoscopy Department at [facility] - [address] [place] [id number] Procedure Note Scott Frederick MD - 06/27/2024 [facility] GI Patient Name: Ivan Cueva Procedure Date: [...] colon K64.0, First degree hemorrhoids CPT copyright 2021 [employer]. All rights reserved. The codes documented in this report are preliminary and upon starch mangle tender reviewmay be revised to meet current compliance requirements. Scott Frederick MD Scott Frederick MD 06/27/2024 3:45:09 PM This report has been signed electronically.Scott Frederick MD Number of Addenda: 0 Note Initiated On: 06/27/2024 3:17 PM Scope In: Scope Out: Endoscopy Department at [address] [phone] Scott Frederick MD GI~PROCEDURE ORDERABLES Final Re sult * Diabetes Eye Exam (03/23/2024) Diabetes: Annual Retina Eye Exam abstracted us Historical Provider HEALTH MAINTENANCE Final Result from Last 3 Months or Most Recently Relevant to Health Maintenance Insurance [employer] MEDICARE ADVANTAGE MEDICAID - [place] Care Teams Bmw Service Technician Relationship Specialty Start Date End Date Halie Sierra MD [address] [place] [id number] PCP - General Internal Medicine 06/07/19
== END 2025-08-02 10:44 | disposition home or self-care (01) ==
LOC: HO.HPHYS 10:06
PROVIDERS: PCP Internal Medicine; Visit Provider Physician Assistant
DX: M54.16 Radiculopathy, lumbar region (principal)
CPT/HCPCS: 99213

== ENCOUNTER → 2025-08-02 10:05 | Outpatient (BNVA) | payer MEDICARE, MEDICAID, SELFPAY | PROVIDERS: PCP Internal Medicine; Visit Provider Physician Assistant | DX: M54.16 Radiculopathy, lumbar region (principal) | CPT/HCPCS: 99212 ==